=== PATIENT | male | born 1945 | race Caucasian/White ===

== ENCOUNTER 2016-09-14 09:06 | Inpatient (IN) | payer OTHER ==
[2016-09-14 09:57] LABS: MANUAL DIFF NEEDED? NO
[2016-09-14 10:00] LABS: BASO% 0.2 % (0.0-0.8); EOS# 0.13 X1000 (0.0-0.7); EOS% 1.1 % (0.0-10.0); HEMATOCRIT 42.2 % (42.0-52.0); HEMOGLOBIN 14.7 g/dL (14.0-18.0); IMM GRAN# 0.03 X1000 (0.0-0.04); IMM GRAN% 0.2 % (0.0-0.5); LYMPH# 0.86 X1000 (1.2-3.4); MCHC 34.8 g/dL (33-37); MCV 86.1 FL (81-99); MONO# 1.07 X1000 (0.11-0.59); MONO% 8.7 % (1.7-9.3); MPV 10.8 FL (7.4-10.4); NEUT% 82.8 % (42.2-75.2); PLT 235 X1000 (130-400)
[2016-09-14 10:28] LABS: ALBUMIN 3.4 g/dL (3.5-5.0); CALCIUM 9.1 mg/dL (8.8-10.2); POTASSIUM 4.2 mmol/L (3.5-5.1); TOTAL BILIRUBIN 0.53 mg/dL (0.20-1.00)
[2016-09-14] MEDS ORDERED: DUONEB (A & A) INH ONE (10:41)
--- NOTE | 2016-09-14 10:42 | ED EKG INTERP ---
EKG Interpretation - EKG Time of EKG reading by physician:: 09:40 EKG Read and Signed by:: Swapnil Roldan EKG Interpretation (*Must complete 3 of following elements*): Normal Rate: 74 Rhythm: normal sinus rhythm Comments: normal ECG Attestation - Scribe Verification/Attestation Scribe:: Antonieta Manuel Acting as Scribe for:: Swapnil Roldan Scribe documention review:: This chart was documented by a scribe and accurately reflects the service the provider performed and the decisions made by the provider.
--- NOTE | 2016-09-14 10:47 | PROVIDER DOCUMENTATION ---
HPI-General Adult - General Chief Complaint: Post Op Complaint Stated Complaint: post op complaint Time Seen by Provider: 09/14/16 10:22 Allergies/Adverse Reactions: Patient Allergies Allergy/AdvReac Type Severity Reaction Status Date / Time No Known Allergies Allergy Verified 09/14/16 09:30 Home Medications: Home Medication List Medication Instructions Recorded Confirmed Last Taken Type ATORVAstatin [Lipitor] 40 mg PO QHS 09/08/16 09/14/16 1 Day Ago History Amlodipine [Norvasc] 10 mg PO DAILY 09/08/16 09/14/16 1 Day Ago History Aspirin 81 mg PO DAILY 09/08/16 09/14/16 1 Day Ago History Baclofen 10 mg PO DAILY 09/08/16 09/14/16 1 Day Ago History Budesonide/Formoterol Fumarate 10.2 gm IH BID 09/08/16 09/14/16 1 Day Ago History [Symbicort 160-4.5 Mcg Inhaler] Fenofibrate [Lofibra] 160 mg PO DAILY 09/08/16 09/14/16 1 Day Ago History Glimepiride [Amaryl] 1 mg PO QAM 09/08/16 09/14/16 1 Day Ago History Losartan Potassium 100 mg PO DAILY 09/08/16 09/14/16 1 Day Ago History Magnesium Oxide [Magnesium] 500 mg PO DAILY 09/08/16 09/14/16 1 Day Ago History Meloxicam 15 mg PO DAILY 09/08/16 09/14/16 1 Day Ago History Metformin HCl [Glumetza] 1,000 mg PO BID 09/08/16 09/14/16 1 Day Ago History Multivitamin [Men's Multi-Vitamin] 1 each PO DAILY 09/08/16 09/14/16 1 Day Ago History Pregabalin [Lyrica] 50 mg PO BID 09/08/16 09/14/16 1 Day Ago History Tamsulosin [Flomax] 0.4 mg PO BID 09/08/16 09/14/16 1 Day Ago History Hydrocodone/APAP 7.5 mg/325 mg 1 each PO TID PRN #15 tablet 09/10/16 09/14/16 1 Week Ago Rx [[place]-7.5] - History of Present Illness -Gen Adult Nature of Presenting Problems: A 71 y/o M who had recent lithotripsy presented with new onset of confusion and frequent falls, as per had 3 falls and hit his right arm no hitting head and denies LOC, poor historian, family thinks he is more confused and do not recall recent events, on presentation pt is not in acute distress, he has decreased appetite Location of Pain/Injury: reports: upper extremity Pain Radiation: reports: no radiation Quality of Pain: reports: dull Severity: reports: mild Onset/Duration: reports: unsure Timing: reports: still present Context/Activities at Onset: reports: none Modifying Factors: improves with: nothing Associated Symptoms: reports: denies symptoms Similar Symptoms Previously?: No Recently seen or treated by another doctor?: Yes - Diabetes Related Context Context: reports: change in mental status Review of Systems - Adult - REVIEW OF SYSTEMS - ADULT Constitutional: reports: see HPI Eyes: reports: no symptoms reported Ears, Nose, Mouth & Throat: reports: no symptoms reported Cardiovascular: reports: no symptoms reported Respiratory: reports: no symptoms reported Gastrointestinal: reports: no symptoms reported Genitourinary: reports: no symptoms reported Musculoskeletal: reports: no symptoms reported Integumentary: reports: no symptoms reported Neurological: reports: see HPI, loss of balance Psychiatric: reports: no symptoms reported Endocrine: reports: no symptoms reported Hematologic/Lymphatic: reports: no symptoms reported Allergic/Immunologic: reports: no symptoms reported All Other Systems: Reviewed and Negative Past History - Adult - PAST MEDICAL HISTORY-ADULT Review of Records: reports: Old Records Reviewed, Nursing Assessment Review, Medications Reviewed, Social history reviewed & non-contributory. Major Childhood Illnesses: reports: denies history Cardiovascular: reports: HTN Respiratory: reports: denies history Gastrointestinal: reports: denies history Obstetrical/Gynecological: reports: denies history Genitourinary: reports: denies history Musculoskeletal: reports: arthritis Neurological: reports: CVA Endocrine/Immune: reports: Diabetes Other Conditions: reports: denies history - FAMILY HISTORY Family History: reviewed, not pertinent Physical Exam-General - PHYSICAL EXAM-ADULT Initial Vital Signs Reviewed: Yes - CONSTITUTIONAL General Appearance: lethargic, slow to respond - EYES Eyes: PERRL/EOMI, pink conjunctivae - HEAD, EARS, NOSE, MOUTH & THROAT HENMT: normocephalic/atraumatic, moist mucous membranes - NECK Neck: non-tender, full range of motion - RESPIRATORY Respiratory: chest non-tender, lungs clear, wheezing (mild scattered) - CARDIOVASCULAR Cardiovascular: normal peripheral pulses, regular rate, rhythm, no edema, no gallop, no JVD, no murmur - GASTROINTESTINAL (ABDOMEN) Abdominal Exam: normal bowel sounds, non tender, soft - LYMPHATIC Lymphatic: no adenopathy - MUSCULOSKELETAL Back Exam: normal inspection, no CVA tenderness, no vertebral tenderness Extremity: normal range of motion, non-tender, swelling (mild pitting edema 1+) - SKIN Integumentary: normal color - NEUROLOGIC Neurologic: other (POOR COPERATION unable to ascess completely, had left sided droop which was chronic as per family) - PSYCHIATRIC Psych/Mental Status: other (confusion) Progress - PLAN OF CARE/RESULTS Progress/Plan/Lab Results: Laboratory Tests 09/14/16 09/14/16 09/14/16 09:41 09:41 09:41 WBC 12.30 H RBC 4.90 Hgb 14.7 Hct 42.2 MCV 86.1 MCH 30.0 MCHC 34.8 RDW Std Deviation 15.6 H Plt Count 235 MPV 10.8 H Immature Gran % (Auto) 0.2 Neut % (Auto) 82.8 H Lymph % (Auto) 7.0 L [place] % (Auto) 8.7 Eos % (Auto) 1.1 Baso % (Auto) 0.2 Immature Gran # (Auto) 0.03 Neut # (Auto) 10.19 H Lymph # (Auto) 0.86 L [place] # (Auto) 1.07 H Eos # (Auto) 0.13 Baso # (Auto) 0.02 Sodium 126 L Potassium 4.2 Chloride 86 L Carbon Dioxide 21 L Anion Gap 19 BUN 79 H Creatinine 5.0 H Estimated GFR/1.73 m2 12 BUN/Creatinine Ratio 16 Glucose 62 L Calculated Osmolality 275 Calcium 9.1 Total Bilirubin 0.53 AST 17 ALT 11 Alkaline Phosphatase 60 Vwa-O-Rrshtvruhzr Pept 171 Total Protein 7.0 Albumin 3.4 L Globulin 3.6 Albumin/Globulin Ratio 0.9 Urine Source Urine Color Urine Turbidity Urine pH Ur Specific [place] Urine Protein Ur Glucose (Stick) Ur Ketones (Stick) Urine Blood Urine Nitrite Urine Bilirubin Urobilinogen Dipstick Urine Leukocytes Urine WBC (Auto) Urine RBC (Auto) U Epithel Cells (Auto) Urine Bacteria (Auto) 09/14/16 11:35 WBC RBC Hgb Hct MCV MCH MCHC RDW Std Deviation Plt Count MPV Immature Gran % (Auto) Neut % (Auto) Lymph % (Auto) [place] % (Auto) Eos % (Auto) Baso % (Auto) Immature Gran # (Auto) Neut # (Auto) Lymph # (Auto) [place] # (Auto) Eos # (Auto) Baso # (Auto) Sodium Potassium Chloride Carbon Dioxide Anion Gap BUN Creatinine Estimated GFR/1.73 m2 BUN/Creatinine Ratio Glucose Calculated Osmolality Calcium Total Bilirubin AST ALT Alkaline Phosphatase Kci-B-[place] Pept Total Protein Albumin Globulin Albumin/Globulin Ratio Urine Source CATH Urine Color YELLOW Urine Turbidity CLEAR Urine pH 5.0 Ur Specific [place] 1.010 Urine Protein 30 A Ur Glucose (Stick) NEGATIVE Ur Ketones (Stick) NEGATIVE Urine Blood MODERATE A Urine Nitrite NEGATIVE Urine Bilirubin NEGATIVE Urobilinogen Dipstick NORMAL Urine Leukocytes NEGATIVE Urine WBC (Auto) <10 Urine RBC (Auto) <10 U Epithel Cells (Auto) <10 Urine Bacteria (Auto) NEGATIVE Orders Category Date Time Status Admit - [facility] Routine AdmDCTranf 09/14/16 11:53 Ordered Activity - Strict Bedrest ORDERED Care 09/14/16 11:53 Active Call Admitting on Arrival AT ADMISSION Care 09/14/16 11:54 Active Neurological Check q2h Care 09/14/16 11:53 Active Vital Signs Order ARRIVAL TO ROOM Care 09/14/16 11:53 Active CHEST-1 VIEW [RAD] Stat Exams 09/14/16 10:39 Taken HAND COMPLETE RIGHT [RAD] Stat Exams 09/14/16 10:44 Taken HEAD W/O CONTRAST [CT] Stat Exams 09/14/16 10:39 Taken CBC WITH DIFF [HEME] Stat Lab 09/14/16 09:41 Completed CMP [COMPREHENSIVE METABOLIC PANEL] [CHEM] Stat Lab 09/14/16 09:41 Completed PRO B-NATRIURETIC PEPTIDE Stat Lab 09/14/16 09:41 Completed URINALYSIS [URINALYSIS] Stat Lab 09/14/16 11:35 Completed 0.9% Sodium Chloride Inj [Ns] 1,000 ml Med 09/14/16 11:38 Active IV 999 mls/hr Albuterol 2.5MG/Ipratrop 0.5MG [Duoneb (A & A)] Med 09/14/16 10:41 Discontinued 3 ml INH NOW ONE Aerosol Treatments Routine Oth 09/14/16 10:41 Completed Aerosol Treatments Stat Oth 09/14/16 10:41 Completed Oxygen Device Routine Oth 09/14/16 11:54 Active Telemetry [OM.EQ] Routine Oth 09/14/16 11:53 Active EKG [EKG] Stat Ther 09/14/16 09:35 Draft Vital Signs Temp Pulse Resp BP Pulse Ox 09/14/16 11:51 98 F 78 22 152/59 92 L 09/14/16 10:59 87 16 97 09/14/16 10:01 76 15 92 L 09/14/16 09:07 97.6 F 74 18 139/98 96 No Known Allergies Allergy (Verified 09/14/16 09:30) ATORVAstatin [Lipitor] 40 mg PO QHS 09/08/16 Amlodipine [Norvasc] 10 mg PO DAILY 09/08/16 Aspirin 81 mg PO DAILY 09/08/16 Baclofen 10 mg PO DAILY 09/08/16 Budesonide/Formoterol Fumarate [Symbicort 160-4.5 Mcg Inhaler] 10.2 gm IH BID Fenofibrate [Lofibra] 160 mg PO DAILY 09/08/16 Glimepiride [Amaryl] 1 mg PO QAM 09/08/16 Losartan Potassium 100 mg PO DAILY 09/08/16 Magnesium Oxide [Magnesium] 500 mg PO DAILY 09/08/16 Meloxicam 15 mg PO DAILY 09/08/16 Metformin HCl [Glumetza] 1,000 mg PO BID 09/08/16 Multivitamin [Men's Multi-Vitamin] 1 each PO DAILY 09/08/16 Pregabalin [Lyrica] 50 mg PO BID 09/08/16 Tamsulosin [Flomax] 0.4 mg PO BID 09/08/16 Hydrocodone/APAP 7.5 mg/325 mg [[place]-7.5] 1 each PO TID PRN #15 tablet I&O 09/13/16 09/14/16 09/15/16 07:59 07:59 07:59 Output Total 30 Balance -30 Laboratory 09/14/16 09/14/16 09/14/16 11:35 09:41 09:41 WBC RBC Hgb Hct MCV MCH MCHC RDW Std Deviation Plt Count MPV Immature Gran % (Auto) Neut % (Auto) Lymph % (Auto) [place] % (Auto) Eos % (Auto) Baso % (Auto) Immature Gran # (Auto) Neut # (Auto) Lymph # (Auto) [place] # (Auto) Eos # (Auto) Baso # (Auto) Sodium 126 L Potassium 4.2 Chloride 86 L Carbon Dioxide 21 L Anion Gap 19 BUN 79 H Creatinine 5.0 H Estimated GFR/1.73 m2 12 BUN/Creatinine Ratio 16 Glucose 62 L Calculated Osmolality 275 Calcium 9.1 Total Bilirubin 0.53 AST 17 ALT 11 Alkaline Phosphatase 60 Lnx-G-Kqdkiqgkrel Pept 171 Total Protein 7.0 Albumin 3.4 L Globulin 3.6 Albumin/Globulin Ratio 0.9 Urine Source CATH Urine Color YELLOW Urine Turbidity CLEAR Urine pH 5.0 Ur Specific [place] 1.010 Urine Protein 30 A Ur Glucose (Stick) NEGATIVE Ur Ketones (Stick) NEGATIVE Urine Blood MODERATE A Urine Nitrite NEGATIVE Urine Bilirubin NEGATIVE Urobilinogen Dipstick NORMAL Urine Leukocytes NEGATIVE Urine WBC (Auto) <10 Urine RBC (Auto) <10 U Epithel Cells (Auto) <10 Urine Bacteria (Auto) NEGATIVE 09/14/16 09:41 WBC 12.30 H RBC 4.90 Hgb 14.7 Hct 42.2 MCV 86.1 MCH 30.0 MCHC 34.8 RDW Std Deviation 15.6 H Plt Count 235 MPV 10.8 H Immature Gran % (Auto) 0.2 Neut % (Auto) 82.8 H Lymph % (Auto) 7.0 L [place] % (Auto) 8.7 Eos % (Auto) 1.1 Baso % (Auto) 0.2 Immature Gran # (Auto) 0.03 Neut # (Auto) 10.19 H Lymph # (Auto) 0.86 L [place] # (Auto) 1.07 H Eos # (Auto) 0.13 Baso # (Auto) 0.02 Sodium Potassium Chloride Carbon Dioxide Anion Gap BUN Creatinine Estimated GFR/1.73 m2 BUN/Creatinine Ratio Glucose Calculated Osmolality Calcium Total Bilirubin AST ALT Alkaline Phosphatase Rrd-D-[place] Pept Total Protein Albumin Globulin Albumin/Globulin Ratio Urine Source Urine Color Urine Turbidity Urine pH Ur Specific [place] Urine Protein Ur Glucose (Stick) Ur Ketones (Stick) Urine Blood Urine Nitrite Urine Bilirubin Urobilinogen Dipstick Urine Leukocytes Urine WBC (Auto) Urine RBC (Auto) U Epithel Cells (Auto) Urine Bacteria (Auto) - XRAY 1 XRAY Study: Chest Impression: Normal, See EMR Report - CT/MRI 1 CT Study: Head Impression: See EMR Report (acute infarct of basal ganglia around temporal region) - CONSULTS/PCP/HOSPITALIST Notification #1 *Consult/PCP/Hospitalist*: PCP Dr Rey Time Discussed: 12:00 Consult Disposition: Admit Departure - Departure Time of Disposition Order: 11:56 DIAGNOSIS: Renal failure, Hyponatremia Stroke Qualifiers: CVA mechanism: unspecified Qualified Code(s): I63.9 - Cerebral infarction, unspecified Altered mental status, unspecified Qualifiers: Altered mental status type: disorientation Qualified Code(s): R41.0 - Disorientation, unspecified Disposition: ADMITTED INPATIENT 09 Certified Medical Emergency: Emergent Condition: Fair - Critical Care Note Comments: A 71 y/o M who presented with confusion and frequent falls, onset of symptoms since 2-[address] found to have acute infarct no hemmorhage along with incresed creatinine and hyponatremia, given bolus of IV fluids and discussed with Dr Rey PCP and admit to hospital for further evalaution
--- NOTE | 2016-09-14 10:54 | EKG Report ---
Test Performed on : 09/14/2016 09:40:24 AM Test Reason : FALL Blood Pressure : / mmHG Vent. Rate : 074 BPM Atrial Rate : 074 BPM P-R Int : 186 ms QRS Dur : 098 ms QT Int : 386 ms P-R-T Axes : 068 015 055 degrees QTc Int : 428 ms Normal sinus rhythm. Normal ECG When compared with ECG of 08-SEP-2016 11:36, premature ventricular complexes. are no longer present Unconfirmed Result
[2016-09-14] MEDS ORDERED: NS 1,000 ML IV ONE (11:38)
[2016-09-14 11:46] LABS: URINE MICRO REVIEW NEEDED? NO; URINE SOURCE CATH
[2016-09-14 11:51] LABS: BILIRUBIN URINE NEGATIVE (NEGATIVE); BLOOD URINE MODERATE (NEGATIVE); COLOR YELLOW; GLUCOSE URINE NEGATIVE (NEGATIVE); LEUKOCYTES URINE NEGATIVE (NEGATIVE); NITRITE URINE NEGATIVE (NEGATIVE); PROTEIN URINE 30 mg/dL (NEGATIVE); TURBIDITY URINE CLEAR (CLEAR); UROBILINOGEN URINE NORMAL (NORMAL)
[2016-09-14 11:53] LABS: UR EPITHELIAL CELLS <10 /HPF (<10); URINE BACTERIA NEGATIVE /HPF; URINE RBC <10 /HPF (<10); URINE WBC <10 /HPF (<10)
--- NOTE | 2016-09-14 11:54 | Diag Imaging Result Document ---
PROCEDURE NAME: CHEST-1 VIEW - 09/14/2016 AP CHEST: FINDINGS: The lungs are well expanded. The heart is not enlarged considering the AP exam. The vessels are not distended. No pneumonia. No pleural effusions identified. IMPRESSION: Negative chest.
--- NOTE | 2016-09-14 12:01 | Diag Imaging Result Document ---
PROCEDURE NAME: HEAD W/O CONTRAST - 09/14/2016 CT HEAD WITHOUT CONTRAST: TECHNIQUE: A dose reduction protocol was used. COMPARISON: No comparison examination. FINDINGS: There is an approximately 4 x 4 cm low density area which involves part of the basal ganglia region and the nearby temporal lobe in the vicinity of the sylvian cortex on the left. There is some associated mass effect on the left lateral ventricle and there is mild midline shift to the right of 4-5 mm. This may represent an acute infarct. The possibility that his represents edema associated with a mass lesion cannot be entirely excluded, however. There are chronic appearing microvascular ischemic changes elsewhere and there is a chronic appearing lacunar infarct at the right internal capsule. There is no evidence of hemorrhage. There is no hydrocephalus. There is no skull fracture. There is metallic material noted at the anterior left orbit which may be postsurgical or may relate to other metallic foreign body. IMPRESSION: 1. Approximately 4 cm low density area which extends from the basal ganglia region to the nearby temporal lobe on the left. This likely represents an acute infarct. There is an associated mild mass effect on the left lateral ventricle with mild midline shift to the right. The possibility of a mass lesion in this location cannot be entirely excluded. 2. No hemorrhage. 3. Metallic object at the anterior left orbit which is likely postsurgical, although other metallic foreign body is not excluded. Verbal results were provided to Dr. Palmer at 11:37 a.m. on 09/14/2016.
--- NOTE | 2016-09-14 15:25 | Diag Imaging Result Document ---
PROCEDURE NAME: RENAL STONE SEARCH - 09/14/2016 CT RENAL STONE SEARCH WITHOUT CONTRAST: TECHNIQUE: A dose reduction protocol was used. COMPARISON: Comparison is made with the without contrast CT abdomen of 2015. FINDINGS: There is lviv-kc-gbzrhvzp hydronephrosis on the right. There is mild hydronephrosis on the left. There is an approximately 15 x 11 mm stone at the right ureterovesical junction. There is possible a second 7 mm stone adjacent to the larger stone at the right UVJ. There are nonobstructing stones at the lower right kidney. There is a large nonobstructing stone at the lower left kidney. There is no obstructing left renal stone identified. The urinary bladder is substantially distended. There are apparent cysts at the lower right kidney similar to the previous exam. There is a possible complicated cyst at the upper left kidney similar to the previous exam. The prostate is somewhat prominent and there are prostatic calcifications noted. There is low density enlargement of the left adrenal gland which measures approximately 3 cm and appears stable, likely representing adrenal adenoma. There are atherosclerotic calcifications noted. There are lumbar spine degenerative changes also noted. There is no evidence of bowel obstruction. There is no evidence of free air. IMPRESSION: 1. Cvhq-sw-vumngygx hydronephrosis on the right. Mild hydronephrosis on the left. Distended urinary bladder. 2. 15 x 11 mm stone at the right ureterovesical junction. There is possibly a second 7 mm stone adjacent to the larger stone at the right UVJ. Nonobstructing stones in bilateral kidneys. Verbal results provided to Dr. Rey at 2:53 p.m. on 09/14/2016. [facility]
[2016-09-14] MEDS ORDERED: CATAPRES PO PRN (15:55)
--- NOTE | 2016-09-14 16:27 | Diag Imaging Result Document ---
PROCEDURE NAME: HAND COMPLETE RIGHT - 09/14/2016 PLAIN RADIOGRAPH OF THE RIGHT HAND 3 VIEWS: COMPARISON: None available. 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 There is extensive degenerative arthropathy involving the distal IP joint of the 3rd finger and milder arthropathy at the distal IP joint of the 2nd finger. There is no discrete fracture, dislocation, or intrinsic osseous lesion otherwise. IMPRESSION: No definite acute osseous abnormality.
--- NOTE | 2016-09-14 17:12 | CONSULTATION ---
DATE OF CONSULTATION: 09/14/2016 CONSULTING PHYSICIAN: Dr. Mejia Rey. REASON FOR CONSULTATION: Acute kidney injury, right hydroureteronephrosis, right distal ureteral stone with obstruction. HISTORY OF PRESENT ILLNESS: This is a 71-year-old male, known to me secondary to a history of BPH, elevated PSA, and urolithiasis. He had a CAT scan in December of 2015 which showed bilateral renal stones. He developed left flank pain with KUB revealing large left renal stone. He underwent left extracorporeal shockwave lithotripsy on 09/10/2016. He was discharged later that day. He reports having mild postoperative discomfort and noted passing the fragments. He then developed a progressively harder time urinating, voiding " thimble amount" at that time. He also reports intermittent right-sided flank pain radiating to the lower abdomen. He denied gross hematuria except for the 1st 2 days after lithotripsy. He was admitted today with confusion and frequent falls. He underwent CT scan of the head which revealed a possible infarct at the level of the basal ganglia. He also underwent CT abdomen and pelvis renal stone search which revealed moderate hydronephrosis on the right with 15 x 11 mm stone at the right ureterovesical junction. He had very mild left hydroureteronephrosis as well as left lower pole renal stone. He also had several cysts bilaterally. Of note, there was significantly distended urinary bladder. Patient had a Sinclair catheter placed and reports feeling better already. He denies fevers or chills. PAST MEDICAL HISTORY: 1. History of CVA. 2. Obstructive sleep apnea. 3. Urolithiasis. 4. Kidney cysts. 5. Elevated PSA. 6. BPH. 7. Arthritis. PAST SURGICAL HISTORY: Left extracorporeal shockwave lithotripsy as above. MEDICATIONS: Amlodipine, calcium, aspirin, fenofibrate, losartan, metformin, oxycodone, Flomax. ALLERGIES: No known drug allergies. SOCIAL HISTORY: Smoker. Denies alcohol or drug use. FAMILY HISTORY: No malignancies. REVIEW OF SYSTEMS: Reviewed and 12 systems negative except as mentioned in HPI. PHYSICAL EXAMINATION: Vital signs: T 99.8 degrees, P 82, BP 142/58. General: No acute distress. Pleasant male. HEENT: Normocephalic, atraumatic. Cardiovascular: Regular rhythm. Pulmonary: Bilateral breath sounds. Abdomen: Protuberant. Nontender to palpation. : Normal phallus. Normal meatus. Uncircumcised. Sinclair catheter in place, draining straw-colored urine. Lymphatic: No groin lymphadenopathy. Dermatologic: No obvious skin rashes. Neurologic: Alert and oriented x3 on my exam. Psychiatric: Appropriate mood and affect. PERTINENT LABS: White cell count of 12,000, hematocrit 42. Creatinine of 5 from a creatinine of 1 just a week ago. His urinalysis is positive for blood, negative for bacteria , nitrite, or leukocytes. PERTINENT IMAGES: CT abdomen and pelvis stone search on 09/14/2016 per HPI. ASSESSMENT: This is a 71-year-old male with history of benign prostatic hypertrophy status post left extracorporeal shockwave lithotripsy, who presented with urinary retention and likely altered mental status due to that, as well as a very large right ureterovesical junction stone. I have explained to the patient it would be very unlikely to have a 15 mm stone move all the way to the distal ureter but nevertheless, that is his case. We discussed that he would benefit from right ureteroscopy with laser lithotripsy, stone basket extraction, and ureteral stent placement. We discussed the risks including, but not limited to, bleeding, infection, injury to the bladder, injury to the kidney, injury to the ureter, inability to remove the stone, and need for additional interventions. He voiced understanding and wants to proceed. PLAN: 1. To OR tomorrow for right ureteroscopy, laser lithotripsy, stone basket extraction, placement of right ureteral stent. 2. Keep Sinclair catheter in for now. 3. Thank you for the consultation. [facility]
[2016-09-14] MEDS: NS 1,000 ML IV SCH (17:59)
[2016-09-14] MEDS: SYMBICORT 160/4.5 MICROGM INHALER INH SCH (20:00)
--- NOTE | 2016-09-14 22:11 | HISTORY AND PHYSICAL ---
CHIEF COMPLAINT: Altered mental status. HISTORY OF PRESENT ILLNESS: Mr. Kathleen is a 71-year-old, gentleman who was brought into the emergency room after he was reportedly having altered mental status and frequent falls. He had a lithotripsy [address] Blackmon[address] The patient is a poor historian and cannot give me any history. PAST MEDICAL HISTORY: 1. Type 2 diabetes mellitus. 2. Hypertension. 3. Dyslipidemia. 4. History of CVA. 5. Anxiety disorder. 6. Depression. 7. 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 8. History of pancreatitis in the past. PAST SURGICAL HISTORY: Left cheek skin cancer resection. SOCIAL HISTORY: Patient smoked 2 packs of cigarettes per day. He has been smoking since 1964. He does not drink alcohol on a regular basis and does not use any recreational drugs. FAMILY HISTORY: No significant family history reported. ALLERGIES: No known drug allergies reported. CURRENT HOME MEDICATIONS: 1. Amlodipine 10 mg orally once daily. 2. Aspirin 81 mg orally once daily. 3. Atorvastatin 40 mg orally once daily at bedtime. 4. Fenofibrate 160 mg orally once daily. 5. Multivitamin orally once daily. 6. Fish oil 1000 mg orally 2 capsules twice daily. 7. Glimepiride 1 mg orally once daily in the morning. 8. Metformin 1000 mg orally twice daily. 9. Losartan 100 mg orally once daily. 10. Meloxicam 15 mg orally once daily. 11. Oxycodone/acetaminophen 10 mg/325 mg orally 1-2 tablets every 6 hours as needed for pain. 12. Lyrica 50 mg orally twice daily. 13. Symbicort 160/4.5, 2 puffs twice daily. 14. Tamsulosin 0.4 mg orally twice daily. REVIEW OF SYSTEMS: A full review of systems could not be obtained since patient is not giving me a good history because of altered mental status. PHYSICAL EXAMINATION: VITAL SIGNS: Temperature 98.8 degrees, pulse 82 per minute, respiratory rate 16 per minute, blood pressure 142/58, pulse ox 95% on 2 L of oxygen via nasal cannula. GENERAL: Patient is alert and oriented x3 although he does appear to be somewhat drowsy. He does not appear to be in any acute distress otherwise. HEENT: No acute findings noted. NECK: Supple without any thyromegaly. LYMPHATICS: No lymphadenopathy noted in the neck or axillary areas. RESPIRATORY SYSTEM: Normal. Respiratory effort noted. Bilateral lung air entry is good without any rales or rhonchi. CARDIOVASCULAR SYSTEM: First and second heart sounds are audible without any murmurs or gallops. There is no pedal edema. GASTROINTESTINAL SYSTEM: Abdomen does not appear to be distended. It is soft and nontender on palpation. Normal bowel sounds are present. MUSCULOSKELETAL SYSTEM: Range of motion is somewhat limited in most of the joints secondary to osteoarthritis. Congenital deformities of hands and feet are also noted. PSYCHIATRIC: Normal affect noted. Patient does appear to be somewhat forgetful and drowsy. NEUROLOGIC: No focal deficits at present otherwise. SKIN: Skin is without any rash. GENITOURINARY: Deferred. DIAGNOSTIC DATA: CBC shows WBC count of 12.30. Rest of the CBC is nondiagnostic. Chemistry showed sodium levels of 126, BUN 79, creatinine 5.0. Rest of the chemistry is nondiagnostic. Urinalysis shows moderate blood. CT scan of the abdomen and pelvis without contrast showed right-sided mild to moderate hydronephrosis, left-sided mild hydronephrosis, severe bladder distention and right UVJ 15-11 mm calculus along with bilateral nonobstructing calculi. CT scan of the head was obtained at the emergency room that showed 4 cm low- density area extending from basal ganglia to the nearby temporal lobe on the left side. There is an associated mild mass effect on the left lateral ventricle with midline shift to the right. No hemorrhage was noted however. Chest x-ray did not show any acute pulmonary disease. IMPRESSION: 1. Altered mental status that could be multifactorial and could be secondary to uremia along with possible acute stroke and also hyponatremia. 2. Acute kidney injury with significantly elevated creatinine levels of 5.0 with normal baseline creatinine levels. This is secondary to bladder outlet obstruction along with right ureterovesical junction calculus. 3. Multiple comorbid conditions including hypertension and diabetes. PLAN: I am going to discontinue or hold metformin, losartan and meloxicam at this time. We will continue with the rest of his routine home medications and give him lispro insulin as per sliding scale for diabetes control. I am also going to give him IV fluids normal saline at 125 mL/h and place a Sinclair catheter. Her creatinine levels are expected to improve overnight and a Urology consultation with Dr. Ananyev has been requested with whom I discussed this case in detail over the phone. I am also going to request a Neurology consultation with Dr. Montero for further evaluation and his abnormal brain CT which could be likely secondary to acute CVA. I am going to obtain a basic metabolic panel to re-evaluate his sodium levels along with BUN/ creatinine tomorrow morning. Further recommendations will be given as per hospital course. MTDD
[2016-09-14] MEDS: HUMALOG SUBQ SCH (22:44)
[2016-09-14] MEDS: LIPITOR PO SCH (22:44)
[2016-09-14] MEDS: FLOMAX PO SCH (22:44)
[2016-09-15] MEDS: NS 1,000 ML IV SCH ×4 (03:46→23:01)
[2016-09-15 07:17] LABS: CALCIUM 8.9 mg/dL (8.8-10.2); POTASSIUM 4.3 mmol/L (3.5-5.1)
[2016-09-15] MEDS: SYMBICORT 160/4.5 MICROGM INHALER INH SCH ×2 (08:05→21:35)
[2016-09-15] MEDS: HUMALOG SUBQ SCH ×3 (11:46→20:52)
[2016-09-15] MEDS: FLOMAX PO SCH ×2 (11:47→20:53)
[2016-09-15] MEDS ORDERED: CLAVE SECONDARY SET 11953 ONE (11:53)
[2016-09-15] MEDS ORDERED: KEFZOL 2 GM/D5W 50 ML ONE (11:53)
[2016-09-15] MEDS ORDERED: DIPRIVAN 1% ONE (13:12)
[2016-09-15] MEDS ORDERED: XYLOCAINE-MPF 2% ONE (13:22)
[2016-09-15] MEDS ORDERED: LR 1,000 ML ONE (13:22)
[2016-09-15] MEDS ORDERED: QUELICIN (DOSE) ONE (13:22)
[2016-09-15] MEDS ORDERED: ANESTHESIA PB SET 88 IN 5742 ONE (13:22)
[2016-09-15] MEDS ORDERED: NORCO-7.5 PO PRN (13:34)
[2016-09-15] MEDS ORDERED: MORPHINE IV PRN (13:36)
[2016-09-15] MEDS ORDERED: ATIVAN IV PRN (13:52)
[2016-09-15] MEDS ORDERED: ZOFRAN IV PRN (13:53)
--- NOTE | 2016-09-15 14:12 | Diag Imaging Result Document ---
PROCEDURE NAME: FLUROSCOPY CYSTO - 09/15/2016 RETROGRADE PYELOGRAM, 4 IMAGES: FINDINGS: The last image shows a guidewire on the right. There are multiple apparent stones over the lower pole of the right kidney, and there may be multiple stones on the left side as well. No contrast was administered. IMPRESSION: Fluoroscopic images as described.
[2016-09-15] MEDS: NORVASC PO SCH (15:03)
[2016-09-15] MEDS: LOFIBRA PO SCH (15:03)
[2016-09-15] MEDS: ASPIRIN PO SCH (15:03)
[2016-09-15] MEDS ORDERED: HALDOL IV ONE (15:04)
[2016-09-15] MEDS: THERA M PLUS PO SCH (15:04)
--- NOTE | 2016-09-15 16:19 | CONSULTATION ---
DATE OF CONSULTATION: 09/15/2016 ROOM: 371-B. HISTORY OF PRESENT ILLNESS: Mr. Kathleen is 71 years old. History from the family is that he has been gradually more forgetful for the last 6 months or so. Family has also noticed unsteady gait, short steps, stooped posture, shuffling. He was taking oxycodone, 1 or 2 doses daily regularly for back pain. He had a urologic procedure 5 days ago and did well. He seemed to be at baseline later that day and early the following day. He declined pain medicines. Later in the day four days ago, he seemed confused, "talking out of his head," unable to walk without falling. Family saw him fall. He simply collapsed. There was not definite focal feature. He was not able to get up without assistance. There was never unconsciousness or altered awareness associated with falls. Sometimes, in recent days, he would seem to be nearly at baseline with his alertness, attention, orientation and gait and at other times, he would seem unable to carry on conversation and unable to walk. This went on for a day or so and then he came to the hospital. He seems to be a little bit better today, but has not walked today. There is history of stroke occurring about 18 years ago causing one-sided weakness. Family believes this was left-sided weakness, mostly left leg weakness to the point that he could not walk. He gradually recovered and eventually was walking with minimal limp. There is no history of recent head injury. He does not use ethanol. He has never had seizure or other neurologic event. Workup here includes lab showing WBC count 12,300. Sodium was initially 126, corrected to 144. Initial blood sugar was 64, later 94. Family believes he was taking his medicines for blood sugar control, but not eating and blood sugar may have been lower at home. Initial BUN and creatinine were 79 and 5, improved today to 555 and 2.3. Review of computer record shows laboratory, BUN 14 and creatinine 1 then. He has past history of hypertension, dyslipidemia, diabetes mellitus, and cigarette smoking. PHYSICAL EXAMINATION: Vital sign: Chart here shows he is afebrile. Systolic blood pressures have ranged 110 to 150s. Neurologic: Mr. Kathleen is awake, alert, attentive and cheerful. He is not oriented. He eventually guessed the day of the week correctly as Wednesday, but did not answer any other orienting questions correctly. Speech is not significantly dysarthric. Language function is intact on brief bedside testing. Remote memory is fair. Recent memory is poor. I did not test his cognitive function further. He has congenital deformities of the left side of the face and all limbs distally. Family reports facial appearance is baseline with no new drooping or asymmetry. He has full visual field tested by confrontational finger counting in the right eye. He reports equal pinprick appreciation on the left and right limbs. He demonstrates good power in all limbs. He did well on right index finger to nose testing and left 5th finger to nose testing. I did not test his gait. IMPRESSION: 1. Global encephalopathy with confusion, apractic gait. This has been progressing in recent months and was abruptly worse over the weekend associated with metabolic changes as documented. There may be some concern for opiate medication effect, but clearly no history that he took too much of that and history does not sound typical for opiate withdrawal syndrome. There was never altered consciousness to suggest seizure. Clinical exam is difficult to interpret in light of his old deformities, but I do not see new focal neurologic finding to suggest recent stroke. 2. Reported history of old stroke, possibly causing left hemiparesis. I do not see definite residual. 3. Metabolic problems as above. These are being corrected. RECOMMENDATIONS: I do not have any urgent suggestion. We might consider elective brain MRI later, but that is not urgent. Depending on his clinical course, we might consider adding cholinesterase inhibitor. Thanks for asking me to see Mr. Kathleen. [facility]
[2016-09-15] MEDS: LIPITOR PO SCH (20:54)
[2016-09-16] MEDS: NS 1,000 ML IV SCH ×3 (05:40→16:38)
[2016-09-16] MEDS: HUMALOG SUBQ SCH ×4 (06:27→21:51)
[2016-09-16 06:47] LABS: MANUAL DIFF NEEDED? NO
[2016-09-16 06:59] LABS: BASO% 0.2 % (0.0-0.8); EOS# 0.05 X1000 (0.0-0.7); EOS% 0.6 % (0.0-10.0); HEMATOCRIT 39.4 % (42.0-52.0); HEMOGLOBIN 12.9 g/dL (14.0-18.0); IMM GRAN# 0.03 X1000 (0.0-0.04); IMM GRAN% 0.3 % (0.0-0.5); LYMPH# 0.68 X1000 (1.2-3.4); LYMPH% 7.7 % (20.5-51.1); MCH 30.1 PG (27-31); MCHC 32.7 g/dL (33-37); MCV 91.8 FL (81-99); MONO# 0.63 X1000 (0.11-0.59); MONO% 7.2 % (1.7-9.3); MPV 11.1 FL (7.4-10.4); PLT 252 X1000 (130-400); RBC 4.29 XMIL (4.7-6.1)
[2016-09-16 07:22] LABS: CALCIUM 8.8 mg/dL (8.8-10.2); POTASSIUM 4.3 mmol/L (3.5-5.1)
[2016-09-16] MEDS: SYMBICORT 160/4.5 MICROGM INHALER INH SCH ×2 (08:45→21:10)
[2016-09-16] MEDS: THERA M PLUS PO SCH (09:09)
[2016-09-16] MEDS: LOFIBRA PO SCH (09:09)
[2016-09-16] MEDS: FLOMAX PO SCH ×2 (09:10→20:30)
[2016-09-16] MEDS: ASPIRIN PO SCH (09:10)
[2016-09-16] MEDS: NORVASC PO SCH (09:10)
--- NOTE | 2016-09-16 15:05 | PROGRESS NOTE ---
DATE: 09/16/2016 SUBJECTIVE: Mr. Kathleen is resting now. Family reports he has been much, much improved cognitively during the day today, compared to yesterday and the day before. There was not any new problem from a neurologic standpoint. ASSESSMENT/PLAN: I do not have any new thoughts or new suggestions today. Thanks for asking me to see Mr. Kathleen.
[2016-09-16] MEDS: LIPITOR PO SCH (20:30)
[2016-09-17] MEDS: NS 1,000 ML IV SCH ×2 (03:51→05:26)
[2016-09-17] MEDS: HUMALOG SUBQ SCH ×2 (06:37→11:14)
[2016-09-17 07:25] LABS: AGAP 10; BUN 19 mg/dL (8-22); CALCIUM 8.7 mg/dL (8.8-10.2); CHLORIDE 106 mmol/L (98-107); COSMO 286; POTASSIUM 3.8 mmol/L (3.5-5.1); SODIUM 141 mmol/L (136-145); TCO2 25 mmol/L (25-35)
[2016-09-17 07:37] VITALS: BP 171/60
[2016-09-17] MEDS: SYMBICORT 160/4.5 MICROGM INHALER INH SCH (08:05)
--- NOTE | 2016-09-17 08:16 | PROGRESS NOTE ---
DATE: 09/17/2016 SUBJECTIVE: Mr. Kathleen had a good night overnight. He denies significant pain. His urine is clear via Sinclair catheter. OBJECTIVE: Vital Signs: T 97.5, P 50, BP 156/52. He has recorded urine output of 2200 mL. General: No acute distress. Abdomen: Nontender. Nondistended. : Sinclair in place, draining straw-colored urine. PERTINENT LABS: His white cell count is 9000, hematocrit 39, creatinine 0.9. ASSESSMENT AND PLAN: A 71-year-old male who presented with acute kidney injury. Creatinine of 5 and presumed 15 mm distal ureteral stone. It was actually 2 stones that were in the diverticulum in the bladder, just adjacent to the ureteral orifice. That likely caused obstruction. He underwent cystolitholapaxy successfully. He did have significant bilobar hypertrophy and I have explained to the patient that he may benefit from transurethral resection of the prostate in the future. For now, we agreed to try Flomax twice a day. PLAN: 1. Discontinue Sinclair catheter today. I instructed nursing staff to notify me with postvoid residual after the patient voids. 2. Home with prescriptions for Flomax 0.4 mg twice a day. 3. I will see him in 4 weeks in office.
[2016-09-17] MEDS: LOFIBRA PO SCH (09:43)
[2016-09-17] MEDS: FLOMAX PO SCH (09:43)
[2016-09-17] MEDS: NORVASC PO SCH (09:44)
[2016-09-17] MEDS: ASPIRIN PO SCH (09:44)
[2016-09-17] MEDS: THERA M PLUS PO SCH (09:44)
--- NOTE | 2016-09-17 11:40 | PROGRESS NOTE ---
DATE: 09/17/2016 SUBJECTIVE: Mr. Kathleen is awake, alert, attentive, bright, cheerful and appropriate. He was sitting up on the side of the bed. He has not had any new mental status problems. I reviewed earlier discussion with patient and family at the bedside regarding possibility that cholinesterase inhibitor could be considered in light of his baseline cognitive impairment and apractic gait. No urgent suggestions. Thanks for asking me to see Mr. Kathleen.
--- NOTE | 2016-09-17 15:56 | DISCHARGE SUMMARY ---
ADMISSION DATE: 09/14/2016 DISCHARGE DATE: 09/17/2016 DISCHARGE DIAGNOSES: 1. Altered mental status secondary to uremia and hyponatremia. 2. Acute kidney injury secondary to right ureterovesical junction calculus and bladder outlet obstruction. 3. History of previous stroke but no acute cerebrovascular event. 4. Type 2 diabetes mellitus. 5. Hypertension. HOSPITAL COURSE: Mr. Kathleen is a 71-year-old, gentleman who was admitted to the hospital after he was found to have altered mental status and having frequent falls. He had lithotripsy done by Dr. Blackmon 4 days prior to this event and had that lithotripsy done on his left side but he was found to have a right ureterovesical junction calculus on his right side this time. Consultation with Dr. Blackmon was obtained who went ahead and did a cystoscopy along with laser lithotripsy and Dormia basket stone extraction. He also had right ureteral stent placement. Patient's condition improved and his BUN and creatinine improved from 79/5.02 to 32/1.2. Since his condition has improved, we are going to let him go home today. It should be noted that on his presentation sodium levels were found to be 126 and now they have improved to 143. We are going to leave the Sinclair catheter in since the patient had bladder outlet obstruction and Dr. Blackmon is going to decide about that when patient follows up with him next week. DISCHARGE MEDICATIONS: 1. Amlodipine 10 mg orally once daily. 2. Aspirin 81 mg orally once daily. 3. Atorvastatin 40 mg orally once daily at bedtime. 4. Fenofibrate 160 mg orally once daily. 5. Multivitamin orally once daily. 6. Fish oil 1000 mg 2 capsules twice daily. 7. Glimepiride 1 mg orally once daily in the morning. 8. Metformin 1000 mg orally twice daily. 9. Losartan 100 mg orally once daily. 10. Meloxicam 15 mg orally once daily as needed for arthritis. 11. Lyrica 50 mg orally twice daily. 12. Symbicort 160/4.5 two puffs twice daily. 13. Tamsulosin 0.4 mg orally twice daily. FOLLOWUP: He will follow up with Dr. Blackmon in approximately 1 week and follow up with me at the office in approximately 10 days. CONDITION: Stable. DISPOSITION: Home. TIME SPENT: A total of more than 40 minutes were spent during the discharge process. MTDD
--- NOTE | 2016-10-04 17:45 | OPERATIVE NOTE ---
PROCEDURE DATE: 09/15/2016 SURGEON: Goldy Blackmon MD PREOPERATIVE DIAGNOSES: 1. Acute kidney injury. 2. Hydronephrosis. 3. Presumed large distal ureteral stone on the right. POSTOPERATIVE DIAGNOSES: 1. Acute kidney injury. 2. Urinary retention. 3. Three large bladder stones. PRIMARY PROCEDURES: Holmium laser cystolitholapaxy. INDICATIONS: A 71-year-old male who had seen wa in the past for urolithiasis. He underwent lithotripsy on the left side. He presented with urinary retention and acute kidney injury and CT findings suggestive of right ureterovesical junction stone which was approximately 15 mm. He was counseled on right ureteroscopy with laser lithotripsy. FINDINGS: The stone was actually not in the distal ureter but in a diverticulum adjacent to the ureteral orifice likely causing the ureteral obstruction. He also had 2 other large stones. He did have trilobar prostatic hypertrophy. The largest stone was under 2.5 cm. DESCRIPTION OF PROCEDURE: After obtaining informed consent patient was brought to the operative room. Perioperative antibiotics and laryngeal mask anesthesia were administered. His indwelling Sinclair catheter was removed and he was prepped and draped sterile fashion. A 21-Greenlandic rigid cystoscope was used to gain access to the bladder which was then examined systematic fashion. He did have trilobar hypertrophy with moderate trabeculations and several diverticula. Upon entrance to the bladder we noticed the right ureteral orifice and a immediately adjacent diverticulum next to it with a fairly sizable stone. There were 2 other stones in the urinary bladder. He had no mucosal lesions with exception to mild irritation of the mucosa in the posterior bladder wall consistent with Sinclair catheter. We then removed the cystoscope and introduced 23-Greenlandic cystoscope sheath followed by introduction of 1000 micron Holmium laser fiber. The stones were broken up and fragments were irrigated repeatedly. Repeat examination revealed no obvious evidence of injury to either ureter orifice or residual sizable fragments. We replaced Sinclair catheter in the standard fashion. He was extubated, taken to PACU further recovery. ESTIMATED BLOOD LOSS: None. COMPLICATIONS: None. DISPOSITION: Back to floor with 16-Greenlandic Sinclair catheter to gravity drainage.
== END 2016-09-17 13:11 | disposition home health service (06) | DRG 682 ==
LOC: ED 09:06 → 3N 14:20
PROVIDERS: ADMIT Internal Medicine; ATTEND Internal Medicine
PROC: 0TCB8ZZ Extirpation of Matter from Bladder, Via Natural or Artificial Opening Endoscopic (ICD-10-PCS; principal; 2016-09-15 12:01)
DX: N17.9 Acute kidney failure, unspecified (principal); G93.49 Other encephalopathy; E11.40 Type 2 diabetes mellitus with diabetic neuropathy, unspecified; Q68.1 Congenital deformity of finger(s) and hand; I69.954 Hemiplegia and hemiparesis following unspecified cerebrovascular disease affecting left non-dominant side; E87.1 Hypo-osmolality and hyponatremia; N13.8 Other obstructive and reflux uropathy; N28.1 Cyst of kidney, acquired; N21.0 Calculus in bladder; N40.1 Benign prostatic hyperplasia with lower urinary tract symptoms; N32.89 Other specified disorders of bladder; N32.3 Diverticulum of bladder; I10 Essential (primary) hypertension; E78.5 Hyperlipidemia, unspecified; G47.33 Obstructive sleep apnea (adult) (pediatric); Q66.9 Congenital deformity of feet, unspecified; M19.90 Unspecified osteoarthritis, unspecified site; F41.9 Anxiety disorder, unspecified; F32.9 Major depressive disorder, single episode, unspecified; E66.9 Obesity, unspecified; F17.210 Nicotine dependence, cigarettes, uncomplicated; Z79.899 Other long term (current) drug therapy; Z79.82 Long term (current) use of aspirin; Z79.84 Long term (current) use of oral hypoglycemic drugs; Z85.828 Personal history of other malignant neoplasm of skin; Z91.81 History of falling; Z87.442 Personal history of urinary calculi; Z68.36 Body mass index [BMI] 36.0-36.9, adult
CPT/HCPCS: 51703; 70450; 71010; 74176; 76000; 80048; 80053; 81001; 82948; 83880; 85025; 93005; 94640; 94761; J0330; J0690; J1630; J1815; J2060; J7030; J7120; P9612

== ENCOUNTER 2016-09-19 20:16 | Inpatient (IN) | payer OTHER ==
[2016-09-19] MEDS ORDERED: NS 500 ML IV ONE ×2 (20:47→22:59)
--- NOTE | 2016-09-19 20:54 | PROVIDER DOCUMENTATION ---
HPI-General Adult - General Source: patient - History of Present Illness -Gen Adult Nature of Presenting Problems: 71 y/o male presents to the ER via EMS with complaint of dizziness. Pt had lithortripsy 5 days ago. Pt has hx of kidney failure, stroke. Left sided deformity noted in face, hand and bilateral feet. 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 Onset/Duration: reports: just prior to arrival Timing: reports: still present Associated Symptoms: reports: syncope, weakness <Lakshmi James - Last Filed: 09/19/16 22:52> <Nick Velez - Last Filed: 09/19/16 23:31> - General Chief Complaint: Near Syncope Stated Complaint: lower back pain Time Seen by Provider: 09/19/16 20:34 Allergies/Adverse Reactions: Patient Allergies Allergy/AdvReac Type Severity Reaction Status Date / Time No Known Allergies Allergy Verified 09/19/16 20:27 Home Medications: Home Medication List Medication Instructions Recorded Confirmed Last Taken Type ATORVAstatin [Lipitor] 40 mg PO QHS 09/08/16 09/19/16 1 Day Ago History Amlodipine [Norvasc] 10 mg PO DAILY 09/08/16 09/19/16 1 Day Ago History Aspirin 81 mg PO DAILY 09/08/16 09/19/16 1 Day Ago History Budesonide/Formoterol Fumarate 10.2 gm IH BID 09/08/16 09/19/16 1 Day Ago History [Symbicort 160-4.5 Mcg Inhaler] Fenofibrate [Lofibra] 160 mg PO DAILY 09/08/16 09/19/16 1 Day Ago History Glimepiride [Amaryl] 1 mg PO QAM 09/08/16 09/19/16 1 Day Ago History Losartan Potassium 100 mg PO DAILY 09/08/16 09/19/16 1 Day Ago History Magnesium Oxide [Magnesium] 500 mg PO DAILY 09/08/16 09/19/16 1 Day Ago History Metformin HCl [Glumetza] 1,000 mg PO BID 09/08/16 09/19/16 1 Day Ago History Multivitamin [Men's Multi-Vitamin] 1 each PO DAILY 09/08/16 09/19/16 1 Day Ago History Pregabalin [Lyrica] 50 mg PO BID 09/08/16 09/19/16 1 Day Ago History Baclofen 10 mg PO DAILY PRN PRN #0 09/17/16 09/19/16 1 Day Ago Rx Meloxicam 15 mg PO DAILY PRN PRN #0 09/17/16 09/19/16 1 Day Ago Rx Tamsulosin [Flomax] 0.4 mg PO BID #0 capsule 09/17/16 09/19/16 Unknown Rx Review of Systems - Adult - REVIEW OF SYSTEMS - ADULT Constitutional: denies: chills, fever Eyes: reports: decreased vision (blind in left eye) Ears, Nose, Mouth & Throat: reports: other (tooth loss). denies: ear discharge Cardiovascular: reports: syncope Respiratory: reports: no symptoms reported Gastrointestinal: reports: no symptoms reported Genitourinary: reports: other (lithortripsy 5 days prior) Musculoskeletal: reports: other (deformity of limbs bilateral) Integumentary: reports: no symptoms reported Neurological: reports: dizziness/vertigo, paresthesia (left sided facial droop) , syncope Psychiatric: reports: no symptoms reported Endocrine: reports: no symptoms reported Hematologic/Lymphatic: reports: no symptoms reported Allergic/Immunologic: reports: no symptoms reported All Other Systems: Reviewed and Negative <Lakshmi James - Last Filed: 09/19/16 22:52> Past History - Adult - PAST MEDICAL HISTORY-ADULT Review of Records: reports: Nursing Assessment Review, Medications Reviewed Cardiovascular: reports: HTN Musculoskeletal: reports: arthritis Neurological: reports: CVA Endocrine/Immune: reports: Diabetes - IMMUNIZATION STATUS Childhood Immunizations: See Nurse Assessment Flu Vaccine: See Nurse Assessment - FAMILY HISTORY Family History: reviewed, not pertinent <Lakshmi James - Last Filed: 09/19/16 22:52> Physical Exam-General - CONSTITUTIONAL General Appearance: alert, no apparent distress - EYES Eyes: PERRL/EOMI, other (blind left eye) - HEAD, EARS, NOSE, MOUTH & THROAT HENMT: normocephalic/atraumatic, moist mucous membranes - NECK Neck: non-tender, supple - RESPIRATORY Respiratory: lungs clear, no respiratory distress - CARDIOVASCULAR Cardiovascular: normal peripheral pulses, regular rate, rhythm - GASTROINTESTINAL (ABDOMEN) Abdominal Exam: distended, hernia. negative: normal bowel sounds - MUSCULOSKELETAL Back Exam: normal inspection, no CVA tenderness Extremity: normal range of motion, deformity (bilateral lower extremity deformilty, left upper extremity deformity) - SKIN Integumentary: normal color, warm/dry - NEUROLOGIC Neurologic: facial droop (left) - PSYCHIATRIC Psych/Mental Status: normal mood/affect, normal thought content, normal thought process <Lakshmi James - Last Filed: 09/19/16 22:52> Progress - EKG 1 Time of EKG reading by physician:: 20:48 EKG Read and Signed by:: Nick Velez EKG Interpretation (*Must complete 3 of following elements*): Normal Rate: 74 Rhythm: sinus rhythm with premature atrial complexes [place]: normal - CT/MRI 1 CT Study: Abdomen, Pelvis Impression: Normal CT Results: Small risidual stone frangments in bladder otherwise normal per radiologist <Lakshmi James - Last Filed: 09/19/16 22:52> - CONSULTS/PCP/HOSPITALIST Notification #1 *Consult/PCP/Hospitalist*: Dr. Leong, hospitalist Time Discussed: 23:20 <Nick Velez - Last Filed: 09/19/16 23:31> Departure <Lakshmi James - Last Filed: 09/19/16 22:52> - Departure Time of Disposition Order: 22:55 Certified Medical Emergency: Emergent <Nick Velez - Last Filed: 09/19/16 23:31> - Departure DIAGNOSIS: Orthostatic hypotension Leukocytosis Qualifiers: Leukocytosis type: unspecified Qualified Code(s): D72.829 - Elevated white blood cell count, unspecified UTI (urinary tract infection) Qualifiers: Urinary tract infection type: site unspecified Hematuria presence: with hematuria Qualified Code(s): N39.0 - Urinary tract infection, site not specified Sepsis Qualifiers: Sepsis type: sepsis due to unspecified organism Qualified Code(s): A41.9 - Sepsis, unspecified organism Disposition: ADMITTED INPATIENT 09 Condition: Stable Referrals: None,PCP [Primary Care Provider] - Attestation - Scribe Verification/Attestation Scribe:: Lakshmi James Acting as Scribe for:: Nick Velez Scribe documention review:: This chart was documented by a scribe and accurately reflects the service the provider performed and the decisions made by the provider. <Lakshmi James - Last Filed: 09/19/16 22:52> Physician Attestation
[2016-09-19 21:30] LABS: MANUAL DIFF NEEDED? NO
[2016-09-19 21:32] LABS: BASO% 0.4 % (0.0-0.8); EOS# 0.26 X1000 (0.0-0.7); EOS% 1.7 % (0.0-10.0); HEMATOCRIT 30.8 % (42.0-52.0); IMM GRAN# 0.36 X1000 (0.0-0.04); IMM GRAN% 2.3 % (0.0-0.5); LYMPH# 1.27 X1000 (1.2-3.4); LYMPH% 8.1 % (20.5-51.1); MCHC 32.5 g/dL (33-37); MCV 92.5 FL (81-99); MONO# 0.99 X1000 (0.11-0.59); MONO% 6.3 % (1.7-9.3); MPV 10.8 FL (7.4-10.4); NEUT% 81.2 % (42.2-75.2); PLT 305 X1000 (130-400); RBC 3.33 XMIL (4.7-6.1)
[2016-09-19 21:46] LABS: INR 1.05 (0.86-1.15); PTT PL 27.8 Seconds (22.6-43.9)
[2016-09-19 21:54] LABS: ALBUMIN 3.1 g/dL (3.5-5.0); MAGNESIUM 1.7 mg/dL (1.5-2.7); POTASSIUM 4.5 mmol/L (3.5-5.1); TOTAL BILIRUBIN 0.3 mg/dL (0.20-1.00); TOTAL PROTEIN 5.5 g/dL (6.3-8.3)
[2016-09-19 22:35] LABS: URINE SOURCE CATH
[2016-09-19] MEDS ORDERED: ROCEPHIN 1 GM/NS 50 ML IV STA (22:56)
[2016-09-19 23:01] LABS: BILIRUBIN URINE NEGATIVE (NEGATIVE); BLOOD URINE 2+ (NEGATIVE); CLARITY CLEAR (CLEAR); COLOR YELLOW; GLUCOSE URINE NEGATIVE (NEGATIVE); LEUKOCYTES URINE 2+ (NEGATIVE); NITRITE URINE NEGATIVE (NEGATIVE); PROTEIN URINE 1+(30 mg/dL) mg/dL (NEGATIVE); URINE EPITHELIAL CELLS <10 /HPF (<10); URINE WBC 20-40 /HPF (<10); UROBILINOGEN URINE NORMAL
[2016-09-19 23:02] LABS: URINE CULTURE PL NEEDED? YES
[2016-09-19] MEDS ORDERED: NS 2,000 ML IV ONE (23:17)
[2016-09-19] MEDS: ZOSYN 4.5 GM/NS 100 ML IV SCH (23:46)
[2016-09-20 01:23] LABS: INR 1.08 (0.86-1.15); PROTIME 14.3 Seconds (12.1-15.5)
[2016-09-20 01:24] LABS: PTT PL 28.8 Seconds (22.6-43.9)
[2016-09-20] MEDS: NS 1,000 ML IV SCH ×4 (02:47→20:10)
[2016-09-20 09:11] LABS: OCCULT BLOOD 1 POSITIVE (NEGATIVE)
--- NOTE | 2016-09-20 09:19 | Diag Imaging Result Document ---
PROCEDURE NAME: CHEST-PORTABLE - 09/19/2016 ERECT AP PORTABLE CHEST, 09/19/2016 AT 2254 HOURS: FINDINGS: There is no evidence of acute cardiac or pulmonary disease and, compared to 09/14/2016, there has been no significant change. IMPRESSION: Stable chest.
--- NOTE | 2016-09-20 09:24 | EKG Report ---
Test Performed on : 09/19/2016 8:48:02 PM Test Reason : CHEST PAIN Blood Pressure : / mmHG Vent. Rate : 074 BPM Atrial Rate : 074 BPM P-R Int : 156 ms QRS Dur : 086 ms QT Int : 382 ms P-R-T Axes : 055 037 054 degrees QTc Int : 424 ms Sinus rhythm. with premature atrial complexes. Otherwise normal ECG When compared with ECG of 14-SEP-2016 09:40, (Unconfirmed) premature atrial complexes. are now present Unconfirmed Result
[2016-09-20 09:44] LABS: MANUAL DIFF NEEDED? NO
[2016-09-20 09:46] LABS: BASO% 0.4 % (0.0-0.8); EOS# 0.21 X1000 (0.0-0.7); EOS% 1.6 % (0.0-10.0); HEMOGLOBIN 9.1 g/dL (14.0-18.0); IMM GRAN# 0.28 X1000 (0.0-0.04); IMM GRAN% 2.1 % (0.0-0.5); LYMPH# 1.06 X1000 (1.2-3.4); MCH 29.7 PG (27-31); MCHC 31.4 g/dL (33-37); MCV 94.8 FL (81-99); MONO# 0.71 X1000 (0.11-0.59); MONO% 5.4 % (1.7-9.3); MPV 11.9 FL (7.4-10.4); NEUT% 82.5 % (42.2-75.2); PLT 273 X1000 (130-400); RBC 3.06 XMIL (4.7-6.1)
[2016-09-20 09:57] LABS: CALCIUM 8.7 mg/dL (8.8-10.2); POTASSIUM 4.6 mmol/L (3.5-5.1)
[2016-09-20] MEDS: ZOSYN 4.5 GM/NS 100 ML IV SCH ×3 (11:04→18:43)
[2016-09-20] MEDS ORDERED: LIORESAL PO PRN ×2 (11:23→19:45)
[2016-09-20] MEDS ORDERED: AMARYL PO SCH (11:30)
[2016-09-20] MEDS ORDERED: MAG-OX PO SCH (11:30)
[2016-09-20] MEDS ORDERED: TRICOR PO SCH (11:30)
[2016-09-20] MEDS ORDERED: FLOMAX PO SCH (11:30)
[2016-09-20] MEDS ORDERED: SYMBICORT 160/4.5 MICROGM INHALER INH SCH (11:30)
[2016-09-20] MEDS ORDERED: THERA M PLUS PO SCH (11:30)
[2016-09-20] MEDS ORDERED: LYRICA PO SCH (11:30)
--- NOTE | 2016-09-20 11:38 | Diag Imaging Result Document ---
PROCEDURE NAME: ABDOMEN/PELVIS W/O CONTRAST - 09/19/2016 CT UROGRAM WITHOUT CONTRAST: FINDINGS: There is a small pleural-based nodule present in the right middle lobe on image 6 measuring less than 6 mm in diameter. This was also present on to 09/14/2016 and 01/15/2016. There is mild left lower lobe atelectasis. There are calcified granulomata in the liver and spleen. There is some hyperplasia of the right adrenal gland. The left is markedly enlarged measuring over 4 cm in greatest dimension. The CT density is -8 Hounsfield units which would be consistent with hyperplasia or an adenoma. The adrenal gland has not changed significantly in size or appearance since the previous study. Compared to the previous examination, there are now stone fragments in the proximal right ureter. There is hydronephrosis which was also present at the time of the previous study. There is still nephrolithiasis in the collecting system on the right side but the hydronephrosis which was present previously is no longer present. The large stone fragments seen in the bladder or ureterovesical junction region on the right side on the previous study is no longer present. However, there are tiny stone fragments adjacent to the Sinclair balloon on the right. The bladder is completely decompressed. Multiple cortical cysts are present. Some of these are calcified in the lower pole of the right kidney and in the lateral upper pole region on the left. These findings were all present on 01/19/2016. There is an apparent lipoma in the central renal sinus on the right side. Otherwise, there has been no appreciable change in the abdomen and pelvis. IMPRESSION: Stone fragments in the proximal left ureter. Improved hydronephrosis on the right. Otherwise unchanged since 01/15/2016.
--- NOTE | 2016-09-20 15:19 | HISTORY AND PHYSICAL ---
HISTORY OF PRESENT ILLNESS: Patient is a somewhat poor historian. It appears though his called the ambulance and because he was somnolent and difficulty waking. He had lithotripsy approximately 5 days ago due to a kidney stone. Has a history of kidney failure. Currently, the patient himself is unclear as to why he is in the hospital. States that he is feeling fine. He would like to eat. Denies any knowledge of yesterday's symptoms. 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 He has a left-sided deformity noted in his face and his hands. 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 He has a history of a stroke, kidney stones, lithotripsy 5 days ago, history of hypertension, diabetes, and chronic arthritis. REVIEW OF SYSTEMS: Difficult to obtain. Patient notes that he has been dizzy. States he has had issues with constipation but denies any issues with constipation. Denies any nausea, vomiting, fevers, or chills. Denies cough, congestion, or shortness of breath. Denies any headaches or blurred vision. ALLERGIES: No known drug allergies. MEDICATIONS: Lipitor 40, Norvasc 10, aspirin 81, Symbicort b.i.d., fenofibrate 160, Amaryl 1, losartan 100, magnesium 500 daily, Glumetza 1000 b.i.d., multivitamin, Lyrica 50 b.i.d., baclofen 10 daily, Mobic 15 daily, and Flomax 0.4 b.i.d. FAMILY HISTORY: Noncontributory. SOCIAL HISTORY: Patient is and lives at home. Does not smoke or drink. PHYSICAL EXAMINATION: VITAL SIGNS: Temperature 98, pulse 86, respiratory rate 11, blood pressure 104/53, saturation 98% on 2 liters. GENERAL: Patient well developed, well nourished. He is currently in no real respiratory distress. He is awake, alert. NECK: Supple. CARDIOVASCULAR: Regular rate. CHEST: Relatively clear. ABDOMEN: Soft. EXTREMITIES: Moves all extremities. NEUROLOGIC: No focal changes. LABORATORIES: WBCs 15. Hemoglobin and hematocrit 10 and 32. Sodium 135, creatinine 1.5. Albumin 3.1. Urinalysis 10-20 white cells. Stool occult blood positive. ASSESSMENT: 1. Urinary tract infection. 2. Chronic renal failure. 3. Mild protein malnutrition. 4. Leukocytosis. 5. Questionable syncopal episode. 6. Hypotension in a patient with known high blood pressure. 7. Benign prostatic hypertrophy. 8. Chronic neuropathy. 9. Diabetes. 10. Chronic arthritis. PLAN: Given the patient's creatinine of 1.5, we will hold his Glucovance as well as his Mobic today. Continue his magnesium and Lyrica. We will also hold his losartan, as his blood pressures have been low. Uncertain of what his typical blood pressure runs. He is on losartan and Norvasc. We will hold both and we will hold his aspirin given that he was heme-positive in the ICU. Hemoglobin and hematocrit has remained stable. Patient denies any abdominal pain. Denies any symptoms. Will continue to follow his apparent urinary tract infection and leukocytosis. Will follow cultures. Further orders as needed.
[2016-09-20 16:03] LABS: MANUAL DIFF NEEDED? NO
[2016-09-20 16:08] LABS: BASO% 0.3 % (0.0-0.8); EOS# 0.28 X1000 (0.0-0.7); HEMATOCRIT 24.1 % (42.0-52.0); HEMOGLOBIN 7.6 g/dL (14.0-18.0); IMM GRAN# 0.18 X1000 (0.0-0.04); IMM GRAN% 1.9 % (0.0-0.5); LYMPH# 1.49 X1000 (1.2-3.4); LYMPH% 15.8 % (20.5-51.1); MCH 29.5 PG (27-31); MCHC 31.5 g/dL (33-37); MCV 93.4 FL (81-99); MONO# 0.59 X1000 (0.11-0.59); MONO% 6.2 % (1.7-9.3); MPV 10.3 FL (7.4-10.4); NEUT% 72.8 % (42.2-75.2); PLT 234 X1000 (130-400); RBC 2.58 XMIL (4.7-6.1)
[2016-09-20] MEDS ORDERED: PROTONIX 80 MG in NS 80 ML IV ONE ×2 (17:34→21:00)
[2016-09-20] MEDS ORDERED: PROTONIX 80 MG in NS 80 ML IV SCH (17:45)
[2016-09-20] MEDS: PROTONIX 80 MG in NS 80 ML IV SCH (20:09)
[2016-09-20] MEDS: FLOMAX PO SCH (22:22)
[2016-09-20] MEDS: CARAFATE LIQUID PO SCH (22:22)
[2016-09-20] MEDS: PROTONIX IV SCH (22:22)
[2016-09-20] MEDS: LYRICA PO SCH (22:22)
[2016-09-20] MEDS: NS 250 ML IV SCH (22:56)
[2016-09-21] MEDS: CARAFATE LIQUID PO SCH ×4 (01:25→20:09)
[2016-09-21] MEDS: ZOSYN 4.5 GM/NS 100 ML IV SCH ×4 (01:25→18:13)
[2016-09-21] MEDS: NS 250 ML IV SCH (02:24)
[2016-09-21] MEDS: NS 1,000 ML IV SCH ×3 (03:16→20:08)
[2016-09-21] MEDS: PROTONIX 80 MG in NS 80 ML IV SCH ×2 (05:47→16:38)
[2016-09-21] MEDS ORDERED: AMARYL PO SCH (08:00)
[2016-09-21] MEDS: LYRICA PO SCH ×2 (08:28→20:09)
[2016-09-21] MEDS: FLOMAX PO SCH ×2 (08:28→20:09)
[2016-09-21] MEDS: MAG-OX PO SCH (08:28)
[2016-09-21] MEDS: THERA M PLUS PO SCH (08:29)
[2016-09-21] MEDS: TRICOR PO SCH (08:29)
[2016-09-21] MEDS: SYMBICORT 160/4.5 MICROGM INHALER INH SCH ×2 (08:33→19:22)
[2016-09-21] MEDS ORDERED: MYLICON DROPS (DOSE) MISC ONE (10:18)
[2016-09-21] MEDS ORDERED: DIPRIVAN 1% ONE (10:45)
[2016-09-21] MEDS: PROTONIX IV SCH (10:57)
[2016-09-21] MEDS ORDERED: EXTENSION SET 32 IN 4522 ONE (11:00)
[2016-09-21] MEDS ORDERED: XYLOCAINE-MPF 2% ONE (11:00)
[2016-09-21] MEDS ORDERED: LR 1,000 ML ONE (11:00)
[2016-09-21] MEDS ORDERED: NS 250 ML ONE (11:00)
[2016-09-21] MEDS ORDERED: ANESTHESIA PB SET 88 IN 5742 ONE (11:00)
--- NOTE | 2016-09-21 14:54 | OPERATIVE NOTE ---
PROCEDURE DATE: 09/21/2016 ADMITTING PHYSICIAN: Moses Guzman MD PROCEDURE PERFORMED: Esophagogastroduodenoscopy. PREOPERATIVE DIAGNOSES: 1. Melena. 2. Anemia with drop in hematocrit, requiring 2 units of blood transfusion. 3. History of use of nonsteroidal anti-inflammatory drugs, on Mobic everyday, 15 mg. 4. History of use of aspirin. 5. Kidney stones, requiring treatment per Dr. James. POSTOPERATIVE DIAGNOSES: 1. Normal esophagus. 2. Z-line visualized at 40 cm. There were areas of mild gastritis in the stomach antrum. 3. Normal fundus, cardia, and incisura on retroflexion. 4. Small amount of bile in the stomach. 5. Evidence of severe duodenitis in the duodenal bulb, erosive type. 6. Evidence of a large ulcer at the apex of the duodenal bulb, measuring at least 2 cm, flat, with 2 flat red spots noted with no active bleeding. No visible clot. No visible vessel. The 2nd portion of the duodenum appeared normal. There was no evidence of any fresh or old blood in the entire EGD. ESTIMATED BLOOD LOSS: None. COMPLICATIONS: None. ANESTHESIA: Monitored anesthesia care. SPECIMENS: None. DESCRIPTION OF PROCEDURE: After informed consent from the patient, explaining the risks, benefits, indications, and alternatives, the patient was prepared for EGD. The risks included infection, bleeding, pain, trauma to the surrounding structures, perforation, and were explained to the patient, among others, and he acknowledged understanding and agreed to proceed. The patient was brought to the OR and turned into the left lateral position. A bite block was placed. After adequate monitored anesthesia care, the upper scope was gently introduced through the vestibule all the way to the 2nd portion of the duodenum. The esophagus as normal in its entire length. The Z-line was visualized at 40 cm. The scope was then advanced into the stomach which showed evidence of bile in the stomach. Examination showed evidence of mild erythema in the gastric antrum, suggesting mild gastritis. Retroflexion revealed normal fundus, cardia, and incisura. The scope was advanced to the duodenum, which showed evidence of erythema and erosions in the entire duodenal bulb, suggesting moderate to severe degree of erosive duodenitis. At the apex of the duodenal bulb, there was evidence of a large, flat ulcer, measuring about 2 cm in greatest dimension, approximately. The area was carefully traversed and we noted there was edema at the apex of the duodenal bulb. The scope was gently retroflexed in the stomach, which appeared normal. There was no evidence of fresh or old blood in the duodenal bulb or 2nd portion of the duodenum. The scope was then pulled black into the position of the gastric, pulled back into the area of duodenal ulcer. The area of the ulcer was carefully visualized and washed. We found 2 flat red spots. We did not find any visible vessel or any visible clot at the area. At that time, the decision was made not to treat the ulcer. The air was aspirated as the scope was withdrawn. The patient tolerated the procedure and is being monitored in the OR in stable condition. I discussed the findings with the patient upon waking him and all questions were answered. RECOMMENDATIONS: 1. The patient was given Protonix IV for 72 hours and to have Protonix IV b.i.d. for next hospital stay and, on discharge, he will benefit from Protonix twice daily for 3 months. The patient will be on Carafate 1 g every 6 hours for 6 weeks. 2. The patient is going to be on Iron-C 1 capsule p.o. b.i.d. for 3 months. 3. The patient will be on Centrum Silver once daily for 3 months. 4. The patient will follow up in the clinic in 3 months. We will repeat EGD in 3 months to document healing of the large ulcers. 5. The patient is to avoid any NSAIDs for now. 6. The patient is to follow gastroesophageal reflux life changes; avoid excessive tea, coffee, soda, tomatoes, onions, and anything spicy. 7. The patient will start on a clear liquid diet for now for 3 days and advance as tolerated. 8. Further recommendations to follow.
[2016-09-21] MEDS: ICAR-C PO SCH (20:09)
--- NOTE | 2016-09-21 22:22 | PROGRESS NOTE ---
DATE: 09/21/2016 SUBJECTIVE: Patient is somewhat a poor historian. Presented on 09/19/2016. called the ambulance because he was somnolent, difficult waking up. He had lithotripsy approximately 5 days previous to this admission due to a kidney stone. History of kidney failure currently, patient unclear how long and why he is in the hospital. States that he is feeling fine and would like to eat. The patient does note to be blind in the left eye. Left-sided facial droop which is chronic. Left-sided deformity of his face and states that he also has deformity of his hand with loss of fingers on that left hand, bilateral foot deformities, right hand not fully developed. History of stroke, kidney stone, lithotripsy 5 days ago. He presented with what appeared to be urinary tract infection. Hemoglobin and hematocrit were 10 and 32 respectively. History of chronic renal failure. Mild protein calorie malnutrition. Leukocytosis. Questionable syncopal episode. The patient was known to have high blood pressure, benign prostatic hypertrophy, chronic neuropathy, diabetes and chronic arthritis. So admitted to the hospital. Anemia was addressed. EGD performed today and found a large duodenal ulcer. OBJECTIVE: Vital signs: Temperature 98.5 degrees, pulse 58, respirations 18, blood pressure 141/58. Blood pressure looks stable. Lungs: Clear in all lung rojas. Cardiovascular: Regular rhythm and rate without murmur or S3. Abdomen: Soft. Skin: Warm and dry. : Urine output was 3500 mL. PERTINENT DATA: Hemoglobin dropped to 7.6, hematocrit 24. Chemistry: Sodium 138, potassium 4.6, chloride 104, bicarb 21, BUN 43, creatinine 1.5. ASSESSMENT: 1. Urinary tract infection. Continue present antibiotics. 2. Anemia, microcytic anemia from blood loss anemia. Large duodenal ulcer apparently found. Continue proton pump inhibitor intravenously, high dose. 3. Mild protein calorie malnutrition. 4. Benign prostatic hypertrophy. 5. Chronic neuropathy. 6. Questionable syncopal event. 7. Diabetes. Sugars appear to be running around the 200s. PLAN: Review of orders, I think he has received a total of 4 packed red blood cells. He is on iron carbonyl 1 b.i.d. Protonix 40 mg IV q.12 hours. Normal saline. Carafate 1 g q.6 hours. Normal saline is running in 250 mg IV. He is on TriCor 145 mg a day. Multivitamin. Magnesium oxide 4 mg a day. Budesonide formoterol inhaler b.i.d. I think we are planning on checking on his hemoglobin and hematocrit. We will check some levels in the morning.
[2016-09-22] MEDS: PROTONIX 80 MG in NS 80 ML IV SCH (01:05)
[2016-09-22] MEDS: CARAFATE LIQUID PO SCH ×4 (01:05→19:33)
[2016-09-22] MEDS: ZOSYN 4.5 GM/NS 100 ML IV SCH ×3 (01:05→12:17)
[2016-09-22] MEDS: NS 1,000 ML IV SCH ×3 (03:20→18:25)
[2016-09-22 04:38] LABS: MANUAL DIFF NEEDED? NO
[2016-09-22 04:56] LABS: AGAP 9; BUN 11 mg/dL (8-22); CALCIUM 8.3 mg/dL (8.8-10.2); CHLORIDE 106 mmol/L (98-107); COSMO 281; MAGNESIUM 1.5 mg/dL (1.5-2.7); POTASSIUM 3.7 mmol/L (3.5-5.1); SODIUM 141 mmol/L (136-145); TCO2 26 mmol/L (25-35)
[2016-09-22 05:01] LABS: BASO% 0.5 % (0.0-0.8); EOS# 0.31 X1000 (0.0-0.7); EOS% 4.7 % (0.0-10.0); HEMATOCRIT 28.7 % (42.0-52.0); HEMOGLOBIN 9.1 g/dL (14.0-18.0); IMM GRAN# 0.13 X1000 (0.0-0.04); LYMPH# 1.26 X1000 (1.2-3.4); LYMPH% 19.2 % (20.5-51.1); MCH 28.7 PG (27-31); MCHC 31.7 g/dL (33-37); MCV 90.5 FL (81-99); MONO# 0.42 X1000 (0.11-0.59); MONO% 6.4 % (1.7-9.3); MPV 10.5 FL (7.4-10.4); NEUT% 67.2 % (42.2-75.2); PLT 230 X1000 (130-400); RBC 3.17 XMIL (4.7-6.1)
[2016-09-22] MEDS: SYMBICORT 160/4.5 MICROGM INHALER INH SCH ×2 (07:29→19:30)
[2016-09-22] MEDS: FLOMAX PO SCH ×2 (08:53→20:08)
[2016-09-22] MEDS: MAG-OX PO SCH (08:53)
[2016-09-22] MEDS: THERA M PLUS PO SCH (08:53)
[2016-09-22] MEDS: ICAR-C PO SCH ×2 (08:54→20:08)
[2016-09-22] MEDS: TRICOR PO SCH (08:54)
[2016-09-22] MEDS ORDERED: THERA M PLUS PO SCH (09:00)
[2016-09-22] MEDS: LYRICA PO SCH ×2 (09:30→20:08)
[2016-09-22] MEDS: HUMALOG SUBQ SCH ×3 (12:15→20:08)
[2016-09-23] MEDS: NS 1,000 ML IV SCH ×3 (02:35→23:57)
[2016-09-23] MEDS: CARAFATE LIQUID PO SCH ×4 (02:35→21:07)
[2016-09-23 04:45] LABS: MANUAL DIFF NEEDED? NO
[2016-09-23 04:57] LABS: BASO% 0.5 % (0.0-0.8); EOS# 0.28 X1000 (0.0-0.7); EOS% 4.7 % (0.0-10.0); HEMATOCRIT 29.6 % (42.0-52.0); HEMOGLOBIN 9.5 g/dL (14.0-18.0); IMM GRAN# 0.12 X1000 (0.0-0.04); LYMPH# 1.27 X1000 (1.2-3.4); LYMPH% 21.2 % (20.5-51.1); MCH 29.2 PG (27-31); MCHC 32.1 g/dL (33-37); MCV 91.1 FL (81-99); MONO# 0.41 X1000 (0.11-0.59); MONO% 6.8 % (1.7-9.3); NEUT% 64.8 % (42.2-75.2); PLT 239 X1000 (130-400); RBC 3.25 XMIL (4.7-6.1)
[2016-09-23 05:20] LABS: AGAP 8; BUN 6 mg/dL (8-22); CALCIUM 8.3 mg/dL (8.8-10.2); CHLORIDE 103 mmol/L (98-107); COSMO 277; POTASSIUM 3.3 mmol/L (3.5-5.1); SODIUM 140 mmol/L (136-145); TCO2 29 mmol/L (25-35)
[2016-09-23] MEDS ORDERED: KLOR-CON PO ONE (06:30)
[2016-09-23] MEDS: SYMBICORT 160/4.5 MICROGM INHALER INH SCH ×2 (07:03→19:37)
[2016-09-23] MEDS: HUMALOG SUBQ SCH ×4 (07:05→22:50)
[2016-09-23] MEDS: LYRICA PO SCH ×2 (08:41→21:07)
[2016-09-23] MEDS: NORVASC PO SCH (08:41)
[2016-09-23] MEDS: ICAR-C PO SCH ×2 (08:41→21:07)
[2016-09-23] MEDS: GLUCOPHAGE PO SCH ×2 (08:41→16:32)
[2016-09-23] MEDS: COZAAR PO SCH (08:41)
[2016-09-23] MEDS: TRICOR PO SCH (08:41)
[2016-09-23] MEDS: FLOMAX PO SCH ×2 (08:41→21:08)
[2016-09-23] MEDS: THERA M PLUS PO SCH (08:42)
[2016-09-23] MEDS: MAG-OX PO SCH (08:42)
--- NOTE | 2016-09-23 15:22 | PROGRESS NOTE ---
DATE: 09/23/2016 SUBJECTIVE: Patient currently resting in chair. He denies any new complaints.Vitals: Temperature of 97.6 degrees, pulse of 74, respiratory rate of 17, blood pressure 125/49, saturating 98% on room air. General Appearance: Obese, lying in a chair in no acute distress. HEENT: Mild pallor. No icterus. Neck: Supple. Abdomen: Obese, soft, nontender, nondistended. Bowel sounds heard. No guarding. Extremities: No cyanosis or clubbing. Neurologic: Alert, awake, oriented x3. LABS: Hemoglobin and hematocrit is 9.5 and 29.6. His BUN and creatinine is 6 and 0.9. IMPRESSION AND PLAN: 1. Anemia secondary to gastrointestinal bleed. In this regard the patient will be on Iron C b.i.d. for 3 months. 2. Large duodenal ulcer. In this regard will be on Protonix twice daily for now and then we will repeat the EGD in 3 months. We will also give him Carafate 1 g every 6 hours for 4 weeks. 3. Patient to follow gastroesophageal reflux life changes. 4. The patient will return to clinic in 3 months. The above plan was discussed with the patient and all questions answered.
[2016-09-23] MEDS ORDERED: PROTONIX IV SCH (17:34)
--- NOTE | 2016-09-23 18:29 | PROGRESS NOTE ---
DATE: 09/22/2016 SUBJECTIVE: Patient is feeling fine, resting, denies any new complaints and no signs of any further bleeding. OBJECTIVE: Vital Signs: Stable with normal temperature, pulse 74, respirations 17, blood pressure 120/50, sat is 98% on room air. General: Obese, lying in chair, in no acute distress. HEENT: No scleral icterus. Mild conjunctival pallor. Neck: Supple. Trachea midline. Heart: Normal. Abdomen: Benign. No guarding, rebound or rigidity. Extremities: No cyanosis, clubbing. Neurological: Alert and oriented. LABS: Hematocrit and hemoglobin are stable at 9.5 and 29.6. IMPRESSION AND PLAN: 1. Anemia secondary to gastrointestinal bleed from a large duodenal ulcer. This will be followed up. We will give him an iron supplement. 2. Large duodenal ulcer. Continue PPI twice daily and we will do an esophagogastroduodenoscopy in 3 months. 3. Continue to follow gastroesophageal reflux changes. 4. We will follow him with you.
[2016-09-23] MEDS ORDERED: LIPITOR PO SCH (21:00)
[2016-09-23] MEDS: SODIUM CHLORIDE 0.9% INJ SCH ×2 (21:07→21:15)
[2016-09-23] MEDS: PROTONIX IV SCH ×2 (21:07→21:16)
[2016-09-24] MEDS: CARAFATE LIQUID PO SCH (03:31)
[2016-09-24 05:43] VITALS: BP 139/53
[2016-09-24] MEDS: HUMALOG SUBQ SCH (06:50)
[2016-09-24 06:55] LABS: URINE CULTURE NEEDED? NO; URINE MICRO REVIEW NEEDED? NO; URINE SOURCE CATH
[2016-09-24 07:00] LABS: BILIRUBIN URINE NEGATIVE (NEGATIVE); BLOOD URINE TRACE (NEGATIVE); COLOR YELLOW; GLUCOSE URINE TRACE mg/dL (NEGATIVE); LEUKOCYTES URINE NEGATIVE (NEGATIVE); NITRITE URINE NEGATIVE (NEGATIVE); PH URINE 6.5; PROTEIN URINE TRACE mg/dL (NEGATIVE); SP GRAVITY URINE 1.008; TURBIDITY URINE CLEAR (CLEAR); UROBILINOGEN URINE NORMAL (NORMAL)
[2016-09-24 07:01] LABS: UR EPITHELIAL CELLS <10 /HPF (<10); URINE BACTERIA NEGATIVE /HPF; URINE RBC <10 /HPF (<10); URINE WBC <10 /HPF (<10)
--- NOTE | 2016-09-24 07:38 | DISCHARGE SUMMARY ---
ADMISSION DATE: 09/19/2016 DISCHARGE DATE: 09/24/2016 DISCHARGE DIAGNOSES: 1. Large duodenal ulcer with acute blood loss anemia secondary to bleeding peptic ulcer. 2. Hypotension, initially secondary to acute blood loss. 3. Bilateral renal calculi with bladder outlet obstruction. HOSPITAL COURSE: Mr. Kathleen is a very poor historian. He was brought into the hospital because he was very somnolent and was not able to walk. Five days prior to this admission he had lithotripsy and had right ureterovesical junction calculus. At that time he was having bladder outlet obstruction that was relieved with a Sinclair catheter. Dr. Blackmon was involved in the care of this patient during that hospital admission. He has done well but his blood pressure went down and he was very somnolent and therefore, he had to be brought into hospital. We consulted Dr. Israel who went ahead and did an EGD that found a large duodenal ulcer. It was not actively bleeding, however. He received IV pantoprazole and IV fluids. We kept him on clear liquids and held his antihypertensive medicines, along with glimepiride. His condition gradually improved and therefore, he is going to be discharged home today. He did have a Sinclair catheter on presentation. That was discontinued yesterday and had an episode of urinary obstruction that had to be relieved with a straight catheter. He again developed urinary retention for which we again catheterized him. This time, we left the Sinclair catheter. He has an appointment tomorrow with Dr. Blackmon. At that time he will be evaluated and assessed for his bladder outlet obstruction. Since patient's condition has improved he is going to be discharged home today. DISCHARGE MEDICATIONS: 1. Tamsulosin 0.4 mg orally twice daily. 2. Omeprazole 40 mg orally twice daily. 3. Sucralfate 1 g orally 4 times a day. 4. Amlodipine 10 mg orally once daily. 5. Losartan 100 mg orally once daily. 6. Fenofibrate 160 mg orally once daily. 7. Atorvastatin 40 mg orally once daily at bedtime. 8. Lyrica 50 mg orally twice daily. 9. Metformin 1000 mg orally twice daily. 10. Glyburide 1 mg orally once daily in the morning. 11. Iron carbonate/ascorbic acid 1 tablet orally twice daily. 12. Magnesium oxide 500 mg orally once daily. 13. Symbicort inhaler 160/4.5 two puffs twice daily. 14. Baclofen 10 mg orally once daily as needed, as directed. 15. Multivitamin orally once daily. FOLLOWUP: Will follow up with Dr. Blackmon tomorrow morning at 8 a.m. He will also follow up with me in approximately 1 week. We will let him follow up with Dr. Israel in approximately 3 months. CONDITION: Stable. DISPOSITION: Home. MTDD
[2016-09-24] MEDS: GLUCOPHAGE PO SCH (09:00)
[2016-09-24] MEDS: ICAR-C PO SCH (09:00)
[2016-09-24] MEDS: TRICOR PO SCH (09:00)
[2016-09-24] MEDS: THERA M PLUS PO SCH (09:00)
[2016-09-24] MEDS: COZAAR PO SCH (09:00)
[2016-09-24] MEDS: MAG-OX PO SCH (09:00)
[2016-09-24] MEDS: LYRICA PO SCH (09:00)
[2016-09-24] MEDS: NORVASC PO SCH (09:00)
[2016-09-24] MEDS: FLOMAX PO SCH (09:01)
--- NOTE | 2016-09-24 12:12 | PROGRESS NOTE ---
DATE: 09/24/2016 SUBJECTIVE: Patient is getting a straight catheterization for urinary retention. He is already on Flomax. He has a history of kidney stones, being followed by Dr. James. He denies any blood in the stools or melena. OBJECTIVE: Vital signs: Temperature 97.9 degrees, pulse rate of 75, respiratory rate of 22, blood pressure 113/53, saturating 98% on room air. General Appearance: Moderately built, moderately nourished, in bed, in no distress. HEENT: Mild pallor. No icterus. Neck: Supple. Abdomen: Obese, soft, nontender, nondistended. Bowel sounds present. No guarding. Extremities: No cyanosis, clubbing. Neurologic: He is alert, awake, and oriented. LABS: Hemoglobin and hematocrit are 9.5 and 29.6 from yesterday. Blood glucose of 139. IMPRESSION AND PLAN: 1. Anemia secondary to gastrointestinal bleeding with a large duodenal bulb ulcer. We will continue him on PPIs twice daily for 3 months. We will repeat an EGD in 3 months. He will also continue on Iron C b.i.d., MVI once daily. He will continue to follow gastroesophageal reflux lifestyle changes. 2. Urinary retention, benign prostatic hypertrophy, and kidney stones. Per the primary care team and Dr. James. [facility]
== END 2016-09-24 09:42 | disposition home or self-care (01) | DRG 378 ==
LOC: P.ED 20:16 → P.ICU 23:36 → ICU 09-20 19:31 → 3N 09-23 09:17
PROVIDERS: ADMIT Internal Medicine; ATTEND Internal Medicine
PROC: 30233N1 Transfusion of Nonautologous Red Blood Cells into Peripheral Vein, Percutaneous Approach (ICD-10-PCS; 2016-09-20)
PROC: 0DJ08ZZ Inspection of Upper Intestinal Tract, Via Natural or Artificial Opening Endoscopic (ICD-10-PCS; principal; 2016-09-21 10:10)
DX: K26.4 Chronic or unspecified duodenal ulcer with hemorrhage (principal); E44.1 Mild protein-calorie malnutrition; E11.22 Type 2 diabetes mellitus with diabetic chronic kidney disease; E11.40 Type 2 diabetes mellitus with diabetic neuropathy, unspecified; D62 Acute posthemorrhagic anemia; N39.0 Urinary tract infection, site not specified; K29.71 Gastritis, unspecified, with bleeding; I12.9 Hypertensive chronic kidney disease with stage 1 through stage 4 chronic kidney disease, or unspecified chronic kidney disease; K29.81 Duodenitis with bleeding; N40.1 Benign prostatic hyperplasia with lower urinary tract symptoms; R33.9 Retention of urine, unspecified; N18.9 Chronic kidney disease, unspecified; N20.0 Calculus of kidney; E66.9 Obesity, unspecified; H54.42 Blindness, left eye, normal vision right eye; M19.90 Unspecified osteoarthritis, unspecified site; R29.810 Facial weakness; Z86.73 Personal history of transient ischemic attack (TIA), and cerebral infarction without residual deficits; Z87.442 Personal history of urinary calculi; Z79.899 Other long term (current) drug therapy; Z79.84 Long term (current) use of oral hypoglycemic drugs; Z68.34 Body mass index [BMI] 34.0-34.9, adult
CPT/HCPCS: 71010; 74176; 80048; 80053; 81001; 82270; 82550; 82948; 83605; 83735; 84484; 85025; 85610; 85730; 86850; 86900; 86901; 86920; 87040; 87088; 93005; 96361; 96365; 96367; C9113; J0696; J1815; J2543; J7030; J7050; J7120; P9016; 94640-76; S0164

== ENCOUNTER 2016-10-01 07:37 | Day surgery (SDC) | payer OTHER ==
[2016-10-01] MEDS ORDERED: REGLAN ONE (08:22)
[2016-10-01] MEDS ORDERED: PEPCID ONE (08:22)
[2016-10-01] MEDS ORDERED: KEFZOL 2 GM/D5W 50 ML ONE (08:22)
[2016-10-01] MEDS ORDERED: LR 1,000 ML ONE ×2 (08:22→10:02)
[2016-10-01] MEDS ORDERED: FENTANYL ONE (09:52)
[2016-10-01] MEDS ORDERED: DIPRIVAN 1% ONE (09:52)
[2016-10-01] MEDS ORDERED: NS 1,000 ML ONE (09:58)
[2016-10-01] MEDS ORDERED: XYLOCAINE-MPF 2% ONE (10:01)
[2016-10-01] MEDS ORDERED: ROBINUL ONE (10:01)
[2016-10-01] MEDS ORDERED: DECADRON ONE (10:02)
[2016-10-01] MEDS: MORPHINE ONE ×8 (10:04→10:42)
--- NOTE | 2016-10-01 11:29 | OPERATIVE NOTE ---
PROCEDURE DATE: 10/01/2016 PREOPERATIVE DIAGNOSIS: Benign prostatic hypertrophy and urinary retention. POSTOPERATIVE DIAGNOSIS: Benign prostatic hypertrophy and urinary retention. PROCEDURE PERFORMED: Bipolar transurethral resection of the prostate with the loop. SURGEON: Goldy Blackmon MD INDICATIONS: This is a 71-year-old man who has had an extensive history of BPH. He was recently hospitalized with acute kidney injury and a presumably distal ureteral stone that was blocking his right kidney. It actually ended up being a bladder stone adjacent to the ureteral orifice. He underwent cystolitholapaxy and we tried to remove Sinclair catheter on several occasions but were unsuccessful to do so. He has been on Flomax. He continues to fail voiding trials. He desires surgical intervention. FINDINGS: Significant bilobar hypertrophy and adequate hemostasis at the conclusion of the case. PROCEDURE IN DETAIL: After obtaining informed consent, the patient was brought to the operating room. Preoperative antibiotics and laryngeal mask anesthesia were administered. He was placed in lithotomy position and prepped and draped in sterile fashion. A 21-Divehi rigid cystoscope was used to gain access to the bladder, which was then examined in systematic fashion. His prostatic urethra did have significant bilobar hypertrophy with obstruction. He had a few moderate trabeculations. No large diverticula, although there was a small diverticulum adjacent to the right ureteral orifice where, in the past, he had the stone. There were no stones within the bladder. I was able to visualize bilateral clear ureteral efflux. The cystoscope was removed and a 25-Divehi rigid resectoscope was introduced. The bipolar gyrus loop was used to resect the adenoma. I started at the bladder neck and resected toward the verumontanum down to the level of the capsule at 6 o'clock. Subsequent to that, the adenoma was resected in clockwise and counterclockwise positions. Prostate chips were evacuated with the Ellik. Repeat examination did not reveal any evidence of significant bleeding. The resectoscope was removed and a 20-Divehi, 3- way Coude Sinclair was introduced with return of light pink urine. He was connected to continuous bladder irrigation, extubated, and taken to the PACU for further recovery. ESTIMATED BLOOD LOSS: 30 mL. COMPLICATIONS: None. DISPOSITION: To PACU and subsequently the floor for observation with Sinclair catheter to continuous bladder irrigation.
[2016-10-01] MEDS ORDERED: LIORESAL PO PRN (12:06)
[2016-10-01] MEDS ORDERED: SODIUM CHLORIDE 0.9% INJ PRN (12:29)
[2016-10-01] MEDS ORDERED: PHENERGAN PO PRN (12:29)
[2016-10-01] MEDS ORDERED: TYLENOL PO PRN (12:29)
[2016-10-01] MEDS ORDERED: BENADRYL IV PRN (12:29)
[2016-10-01] MEDS ORDERED: MORPHINE IV PRN (12:29)
[2016-10-01] MEDS ORDERED: BENADRYL LIQUID PO PRN (12:29)
[2016-10-01] MEDS ORDERED: PHENERGAN IV PRN (12:29)
[2016-10-01] MEDS ORDERED: PHENERGAN PR PRN (12:29)
[2016-10-01] MEDS ORDERED: B & O 15A SUPP PR PRN (12:29)
[2016-10-01] MEDS ORDERED: LABETALOL IV PRN (12:29)
[2016-10-01] MEDS ORDERED: DITROPAN PO PRN (12:29)
[2016-10-01] MEDS ORDERED: ZOFRAN IV PRN (12:29)
[2016-10-01] MEDS ORDERED: NORCO-7.5 PO PRN (12:29)
[2016-10-01] MEDS: KEFZOL 2 GM/D5W 50 ML IV SCH ×3 (14:52→22:39)
[2016-10-01] MEDS: CARAFATE LIQUID PO SCH ×2 (14:52→22:38)
[2016-10-01] MEDS: NS 1,000 ML IV SCH ×2 (17:21→22:39)
[2016-10-01] MEDS: SYMBICORT 160/4.5 MICROGM INHALER INH SCH (20:00)
[2016-10-01] MEDS ORDERED: LIPITOR PO SCH (21:00)
[2016-10-01] MEDS: PERIDEX MT SCH (22:38)
[2016-10-01] MEDS: FLOMAX PO SCH (22:38)
[2016-10-01] MEDS: COLACE PO SCH (22:38)
[2016-10-01] MEDS: PRILOSEC PO SCH (22:38)
[2016-10-01] MEDS: GLUCOPHAGE PO SCH (22:38)
[2016-10-01] MEDS: LYRICA PO SCH (22:38)
[2016-10-02] MEDS: CARAFATE LIQUID PO SCH ×3 (02:48→13:17)
[2016-10-02] MEDS: KEFZOL 2 GM/D5W 50 ML IV SCH (05:11)
[2016-10-02 07:11] LABS: HEMATOCRIT 30.1 % (42.0-52.0); HEMOGLOBIN 9.4 g/dL (14.0-18.0); MCH 29.3 PG (27-31); MCHC 31.2 g/dL (33-37); MCV 93.8 FL (81-99); MPV 10.8 FL (7.4-10.4); RBC 3.21 XMIL (4.7-6.1)
[2016-10-02 07:23] LABS: AGAP 9; BUN 16 mg/dL (8-22); CALCIUM 8.4 mg/dL (8.8-10.2); CHLORIDE 102 mmol/L (98-107); COSMO 278; POTASSIUM 3.6 mmol/L (3.5-5.1); SODIUM 138 mmol/L (136-145); TCO2 27 mmol/L (25-35)
[2016-10-02] MEDS: SYMBICORT 160/4.5 MICROGM INHALER INH SCH (08:43)
[2016-10-02] MEDS: PERIDEX MT SCH (08:53)
[2016-10-02] MEDS: PRILOSEC PO SCH (08:54)
[2016-10-02] MEDS: FLOMAX PO SCH (08:54)
[2016-10-02] MEDS: GLUCOPHAGE PO SCH (08:54)
[2016-10-02] MEDS: COLACE PO SCH (08:55)
[2016-10-02] MEDS: LYRICA PO SCH (08:56)
[2016-10-02] MEDS ORDERED: MAG-OX PO SCH (09:00)
[2016-10-02] MEDS ORDERED: NORVASC PO SCH (09:00)
[2016-10-02] MEDS ORDERED: COZAAR PO SCH (09:00)
[2016-10-02] MEDS ORDERED: THERA M PLUS PO SCH (09:00)
[2016-10-02] MEDS ORDERED: AMARYL PO SCH (09:00)
[2016-10-02] MEDS ORDERED: LOFIBRA PO SCH (09:00)
[2016-10-02 16:10] VITALS: BP 136/49
== END 2016-10-02 17:18 | disposition home or self-care (01) ==
LOC: OR 07:37 → UNDOADMOB 09:53 → 4N 09:53 → UNDODISOB 10-02 17:18 → OR 10-02 17:18
PROVIDERS: ATTEND Urology
DX: N40.1 Benign prostatic hyperplasia with lower urinary tract symptoms (principal); R33.8 Other retention of urine; E11.9 Type 2 diabetes mellitus without complications; F17.210 Nicotine dependence, cigarettes, uncomplicated; E78.00 Pure hypercholesterolemia, unspecified
CPT/HCPCS: 80048; 82948; 85027; 88305; 88313; 94761; 94799; J0690; J1100; J2270; J3010; J7030; J7120; 94640-76

== ENCOUNTER 2016-11-15 15:32 | Inpatient (IN) ==
[2016-11-15 16:35] LABS: INR 1.04; PROTIME 10.9 Seconds (9.2-11.7); PTT 26.6 Seconds (22.0-36.0)
[2016-11-15 16:46] LABS: BASO% 0.2 % (0.0-0.8); EOS# 0.51 X1000 (0.0-0.7); EOS% 2.3 % (0.0-10.0); HEMATOCRIT 34.4 % (42.0-52.0); IMM GRAN# 0.13 X1000 (0.0-0.04); IMM GRAN% 0.6 % (0.0-0.5); LYMPH# 1.15 X1000 (1.2-3.4); LYMPH% 5.2 % (20.5-51.1); MANUAL DIFF NEEDED? NO; MCH 27.9 PG (27-31); MCV 87.3 FL (81-99); MONO# 1.05 X1000 (0.11-0.59); MONO% 4.7 % (1.7-9.3); MPV 10.9 FL (7.4-10.4); PLT 265 X1000 (130-400); RBC 3.94 XMIL (4.7-6.1)
[2016-11-15 16:57] LABS: AGAP 15; ALBUMIN 3.2 g/dL (3.5-5.0); ALKALINE PHOSPHATASE 95 U/L (32-122); BUN 24 mg/dL (8-22); CHLORIDE 100 mmol/L (98-107); CK PROFILE 17 U/L (24-204); COSMO 279; GOT 31 U/L (10-34); GPT 36 U/L (10-44); MAGNESIUM 1.8 mg/dL (1.5-2.7); POTASSIUM 4.6 mmol/L (3.5-5.1); SODIUM 137 mmol/L (136-145); TCO2 22 mmol/L (25-35); TOTAL BILIRUBIN 0.37 mg/dL (0.20-1.00); TOTAL PROTEIN 6.2 g/dL (6.3-8.3)
[2016-11-15 16:58] LABS: CALCIUM 13.2 mg/dL (8.8-10.2)
[2016-11-15] MEDS ORDERED: NS 1,000 ML IV ONE (17:17)
--- NOTE | 2016-11-15 17:17 | PROVIDER DOCUMENTATION ---
This chart was entered by Antonieta Manuel Scribe, acting as scribe for Filemon Dahl MD. HPI-General Adult - General Chief Complaint: General Adult Stated Complaint: GENERALIZED WEAKNESS X 2 DAYS Time Seen by Provider: 11/15/16 15:54 Source: patient Allergies/Adverse Reactions: Patient Allergies Allergy/AdvReac Type Severity Reaction Status Date / Time No Known Allergies Allergy Verified 10/01/16 08:26 Home Medications: Home Medication List Medication Instructions Recorded Confirmed Last Taken Type ATORVAstatin [Lipitor] 40 mg PO QHS 09/08/16 11/15/16 11/15/16 History Amlodipine [Norvasc] 10 mg PO DAILY 09/08/16 11/15/16 11/15/16 History Budesonide/Formoterol Fumarate 10.2 gm IH BID 09/08/16 11/15/16 11/15/16 History [Symbicort 160-4.5 Mcg Inhaler] Fenofibrate [Lofibra] 160 mg PO DAILY 09/08/16 11/15/16 11/15/16 History Glimepiride [Amaryl] 1 mg PO QAM 09/08/16 11/15/16 11/15/16 History Losartan Potassium 100 mg PO DAILY 09/08/16 11/15/16 11/15/16 History Magnesium Oxide [Magnesium] 500 mg PO DAILY 09/08/16 11/15/16 11/15/16 History Metformin HCl [Glumetza] 1,000 mg PO BID 09/08/16 11/15/16 11/15/16 History Multivitamin [Men's Multi-Vitamin] 1 each PO DAILY 09/08/16 11/15/16 11/15/16 History Pregabalin [Lyrica] 50 mg PO BID 09/08/16 11/15/16 11/15/16 History Baclofen 10 mg PO DAILY PRN PRN #0 09/17/16 11/15/16 11/15/16 Rx Iron Carbonyl/Ascorbic Acid 1 each PO BID #60 tablet 09/24/16 11/15/16 11/15/16 Rx [Icar-C] Omeprazole 40 mg PO BID #60 capsule. 09/24/16 11/15/16 11/15/16 Rx Sucralfate [Carafate Liquid] 1 gm PO Q6HR #120 udc 09/24/16 11/15/16 11/15/16 Rx Tamsulosin [Flomax] 0.4 mg PO BID #60 capsule 09/24/16 11/15/16 11/15/16 Rx - History of Present Illness -Gen Adult Nature of Presenting Problems: Pt is 71 y/o M presents to the ED with generalized weakness. Pt states symptom has been present for 3 days. Pt states having trouble walking. Pt states deformities to extremities due to defect. Pt denies F Location of Pain/Injury: reports: generalized Pain Radiation: reports: no radiation Quality of Pain: reports: aching Severity: reports: mild Onset/Duration: reports: 3 days ago Timing: reports: still present, intermittent Context/Activities at Onset: reports: light activity Modifying Factors: improves with: nothing Associated Symptoms: reports: weakness, trouble walking. denies: anxiety, arm pain, back/neck pain, chest pain, constipation, cough, diaphoresis, diarrhea, dizziness, EENT symptoms, fatigue, fever/chills, genitourinary problems, headaches, heartburn, joint pain, loss of appetite, malaise, muscle aches, sinus congestion/drainage, nausea, rash, seizure, shortness of breath, sensory/ motor loss, pain with inspiration, swelling/mass in abdomen, syncope, vomiting Similar Symptoms Previously?: Yes Recently seen or treated by another doctor?: No Review of Systems - Adult - REVIEW OF SYSTEMS - ADULT Constitutional: reports: no symptoms reported Eyes: reports: no symptoms reported Ears, Nose, Mouth & Throat: reports: no symptoms reported Cardiovascular: reports: no symptoms reported Respiratory: reports: no symptoms reported Gastrointestinal: reports: no symptoms reported Genitourinary: reports: no symptoms reported Musculoskeletal: reports: muscle weakness. denies: bone pain, joint pain, muscle aches, neck pain Integumentary: reports: no symptoms reported Neurological: reports: no symptoms reported Psychiatric: reports: no symptoms reported Endocrine: reports: no symptoms reported Hematologic/Lymphatic: reports: no symptoms reported Allergic/Immunologic: reports: no symptoms reported All Other Systems: Reviewed and Negative Past History - Adult - PAST MEDICAL HISTORY-ADULT Review of Records: reports: Nursing Assessment Review, Medications Reviewed, Social history reviewed & non-contributory. Major Childhood Illnesses: reports: denies history Cardiovascular: reports: HTN Respiratory: reports: COPD, sleep apnea Gastrointestinal: reports: denies history Obstetrical/Gynecological: reports: denies history Genitourinary: reports: denies history Musculoskeletal: reports: arthritis Neurological: reports: CVA, TIA Endocrine/Immune: reports: Diabetes Other Conditions: reports: denies history - PRIOR SURGERIES/PROCEDURES Surgical/Procedure History: reports: reviewed, not pertinent - IMMUNIZATION STATUS Childhood Immunizations: See Nurse Assessment Flu Vaccine: See Nurse Assessment - FAMILY HISTORY Family History: reviewed, not pertinent - SOCIAL HISTORY Smoking: cigarettes, greater than 1 pack/day Provider spent 3-5 mins advising pt. on dangers of tobacco.: Discussed manners to quit use, and f/u contacts for add'l counseling. Substance Use: denies Living Situation: family Physical Exam-General - PHYSICAL EXAM-ADULT Initial Vital Signs Reviewed: Yes - CONSTITUTIONAL General Appearance: appears well, alert, no apparent distress - EYES Eyes: PERRL/EOMI, pink conjunctivae - HEAD, EARS, NOSE, MOUTH & THROAT HENMT: normocephalic/atraumatic, moist mucous membranes, normal ENT inspection, TMs normal, pharynx normal - NECK Neck: non-tender, full range of motion, supple, normal inspection - RESPIRATORY Respiratory: chest non-tender, normal breath sounds, no pleuratic chest pain, no respiratory distress, no accessory muscle use, rales (L lower lung), increased rate - CARDIOVASCULAR Cardiovascular: normal peripheral pulses, regular rate, rhythm, no edema, no gallop, no JVD, no murmur - GASTROINTESTINAL (ABDOMEN) Abdominal Exam: normal bowel sounds, non tender, soft, no organomegaly, no pulsatile mass - LYMPHATIC Lymphatic: no adenopathy - MUSCULOSKELETAL Back Exam: normal inspection, no CVA tenderness, no vertebral tenderness Extremity: normal range of motion, non-tender, deformity (to bilateral arms and R leg due to defect) - SKIN Integumentary: normal color, normal turgor, warm/dry - NEUROLOGIC Neurologic: grossly normal, facial droop (L side due to defect) - PSYCHIATRIC Psych/Mental Status: normal mood/affect, oriented x 3 Progress - PLAN OF CARE/RESULTS Progress/Plan/Lab Results: Vital Signs - 8 hr 11/15/16 15:40 Temperature 97.8 F Pulse Rate 87 Respiratory Rate 23 Blood Pressure 142/60 O2 Sat by Pulse Oximetry 93 L Orders Category Date Time Status EKG [EKG] Stat Ther 11/15/16 15:39 Ordered Result Diagrams: 11/15/16 16:02 11/15/16 16:02 - EKG 1 Time of EKG reading by physician:: 15:46 EKG Read and Signed by:: Filemon Dahl EKG Interpretation (*Must complete 3 of following elements*): Abnormal Rate: 82 Rhythm: normal sinus rhythm Comments: nonspecific T wave abnormality - CONSULTS/PCP/HOSPITALIST Notification #1 *Consult/PCP/Hospitalist*: Dr. Serrano Time Discussed: 17:08 Reason/Comments: Dr. Dahl consulted with Dr. Serrano about admit of PT Consult Disposition: Admit Departure - Departure Time of Disposition Decision: 17:08 DIAGNOSIS: Hypercalcemia, Volume depletion Disposition: ADMITTED INPATIENT 09 Certified Medical Emergency: Emergent Condition: Stable Additional Freetext Instructions: ED Follow Up Instructions: You have been treated by a care provider in the Emergency Department. These instructions are being provided to you so you can have an understanding of how to care for yourself upon discharge. Upon discharge from the Emergency Department, you are responsible for making arrangements for follow-up care by a physician of your choice. Take all prescribed medications as directed. Return to the Emergency Department immediately for any new or worsening symptoms. You may call the Physician Referral phone number at [phone] to obtain a list of Physicians who are taking new patients. Referrals and Follow-Ups: Mejia Rey MD [Primary Care Provider] - Attestation - Physician/ CIRILO Attestation Patient care was provided by Advanced Practice Provider:: Yes Advanced Practice Provider documentation review:: The Mid-level provider documentation, treatment plan and medical decision making was reviewed by the physician who agrees with all treatment and medical decision making by the MLP. The physician spent face to face time with patient:: Yes Advanced Practice Provider documentation review:: The physician spent face to face time with this patient and agrees with all MLP documentation, treatment, and medical decision making by the MLP. See provider notes for further information. This chart was documented by the indicated scribe, (Antonieta Manuel Scribe) and accurately reflects the services I performed and decisions made by Nabila collins Christophe I, MD, as attested by the provider's signature.
--- NOTE | 2016-11-15 17:34 | Diag Imaging Result Document ---
PROCEDURE NAME: CHEST-1 VIEW - 11/15/2016 CHEST, SINGLE VIEW: FINDINGS: Compared to 09/19/2016. The lungs are well expanded. The heart is not enlarged. The vessels are not distended. No pneumonia. No pleural effusions. IMPRESSION: Negative chest.
[2016-11-15 18:01] LABS: URINE SOURCE VOIDED
[2016-11-15 18:04] LABS: BILIRUBIN URINE NEGATIVE (NEGATIVE); BLOOD URINE SMALL (NEGATIVE); COLOR YELLOW; GLUCOSE URINE NEGATIVE (NEGATIVE); LEUKOCYTES URINE LARGE (NEGATIVE); NITRITE URINE NEGATIVE (NEGATIVE); PH URINE 5.5; PROTEIN URINE 100 mg/dL (NEGATIVE); SP GRAVITY URINE 1.019; TURBIDITY URINE TURBID (CLEAR); UROBILINOGEN URINE NORMAL (NORMAL)
[2016-11-15 18:13] LABS: URINE MICRO REVIEW NEEDED? YES
[2016-11-15 18:16] LABS: MAGNESIUM 1.8 mg/dL (1.5-2.7)
[2016-11-15 18:21] LABS: UR EPITHELIAL CELLS <10 /HPF (<10); URINE BACTERIA 1+ /HPF; URINE RBC <10 /HPF (<10); URINE WBC TNTC /HPF (<10)
[2016-11-15 18:23] LABS: URINE CASTS NONE SEEN; URINE CRYSTALS CA OXALATE PRESENT; URINE SMALL ROUND CELLS NONE SEEN
[2016-11-15] MEDS: LOVENOX SUBQ SCH (18:45)
[2016-11-15] MEDS ORDERED: MIACALCIN SUBQ ONE (18:51)
--- NOTE | 2016-11-15 19:05 | Diag Imaging Result Document ---
PROCEDURE NAME: CT THORAX W/CONTRAST - 11/15/2016 CT CHEST WITH INTRAVENOUS CONTRAST: FINDINGS: Dose reduction protocol. No pleural effusions. No cardiomegaly. Moderate atherosclerosis. There are calcified mediastinal and right hilar lymph nodes with scattered calcified granuloma. No consolidation. No bronchiectasis. No infiltrates. Limited images through the upper abdomen reveal a small to moderate amount of fluid about the liver and spleen. There are inflammatory changes about the pancreas with a heterogeneous mass or pseudocyst measuring at least 6.5 cm. There is a large cyst adjacent to the right lobe of the liver measuring 6.9 cm. This could be arising from the liver. Multiple scattered small hypodense liver lesions. The left adrenal is enlarged with a nodule measuring at least 3.8cm. IMPRESSION: 1. No pneumonia although there is evidence of a prior granulomatous infection. 2. Pancreatitis versus pancreatic mass with abdominal ascites. 3. Multiple nonspecific small hypodense hepatic lesions which could be metastases. 4. Enlarged left adrenal gland measuring 3.8 cm. A preliminary report was given at 6:43 PM. MTDD
[2016-11-15] MEDS ORDERED: AREDIA IV ONE (20:00)
[2016-11-15] MEDS ORDERED: NS IV ONE (20:00)
[2016-11-15] MEDS: NS 1,000 ML IV SCH (20:08)
[2016-11-15] MEDS: PRILOSEC PO SCH (20:54)
[2016-11-15] MEDS: LIPITOR PO SCH (20:54)
[2016-11-15] MEDS: LYRICA PO SCH (20:54)
[2016-11-15] MEDS: CARAFATE LIQUID PO SCH (20:54)
[2016-11-15] MEDS: ICAR-C PO SCH (20:55)
[2016-11-15] MEDS: FLOMAX PO SCH (20:55)
[2016-11-15] MEDS: DUONEB (A & A) INH PRN (20:57)
[2016-11-15] MEDS: SYMBICORT 160/4.5 MICROGM INHALER INH SCH (20:58)
--- NOTE | 2016-11-15 23:32 | HISTORY AND PHYSICAL ---
This admission for a covering for Dr. Rey. PRIMARY CARE PHYSICIAN: Dr. Rey. PRESENTING COMPLAINT: Generalized weakness and cough. HISTORY OF PRESENTING COMPLAINT: Mr. 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 The patient presented because for the past 3-4 days he has been excessively weak, and has not been able to get out of bed, even with the assistance with family members. According to the , the patient has also been coughing, but not been bringing up any sputum. No fever, no chills, and no diarrhea. Patient is usually constipated. Patient presented to the emergency department, was evaluated. Initial saturation was about 93% on room air. Lab work did show that the patient's WBC is 22.25, which is high, for which I was asked to evaluate the patient for admission. PAST MEDICAL HISTORY: 1. Diabetes mellitus. 2. 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 3. History of cerebrovascular accident. 4. Dyslipidemia. 5. Hypertension. 6. Diabetes type 2. PAST SURGICAL HISTORY: 1. Left cheek cancer resection. 2. Recent laser cystolitholapaxy by Dr. Blackmon on 09/15/2016. FAMILY HISTORY: Nonsignificant. ALLERGIES: None. SOCIAL HISTORY: Patient smokes more than 2 packs of cigarettes per day. According to him, he has cut down for the past 1 or 2 months, but he smoked 2 packs of cigarettes for over 20 years. MEDICATIONS: Current medication list has been reviewed. REVIEW OF SYSTEMS: A 14-point review of systems conducted with the patient. He denies any other complaint, except what we have in the HPI. PHYSICAL EXAMINATION: VITAL SIGNS: Blood pressure is 133/65, pulse 84, respirations 21, temperature 98 degrees. GENERAL: Mr. Kathelen is a 71-year-old male. He is in bed. He does not seem to be in any distress. HEENT: Mucosa is pink and moist. Anicteric. Acyanotic. NECK: Supple. There is no JVD, no carotid bruit. CHEST: Good air entry bilateral. There are a few bibasilar crepitations, and there is a prolonged expiratory phase of respiration. I did not appreciate any rhonchi or any wheezing. However, the patient did seem like he is retaining air. ABDOMEN: Distended, nontender. Bowel sounds are present. There is no hepatosplenomegaly. CARDIOVASCULAR: Regular rate and rhythm. No murmurs, no rubs, no gallops. EXTREMITIES: Maybe 1+ pedal edema bilateral. 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 The left shows congenital malformation of the digits. The same applies to the hands. CENTRAL NERVOUS SYSTEM: Patient is alert, is oriented x4. 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 The rest of the neurological exam is unremarkable. LABORATORY DATA: WBC is 22.26, hemoglobin is 11.40 platelet count of 265,000. Chemistry: Sodium is 127, potassium is 4.6, chloride is 100, bicarbonate is 22, creatinine is 1.1. Calcium is 13.2. Chest x-ray done today shows heart is not enlarged. No pneumonia, no pleural effusions. ASSESSMENT: Mr. Kathleen is a 71-year-old male with multiple comorbidities, who presented due to generalized weakness, cough. Chest x-ray is unremarkable. However, the patient has a remarkable WBC and elevated calcium. 1. Generalized weakness. Etiology could be multifactorial, including hypercalcemia, as well as clinical dehydration. We are going to address these. 2. Leukocytosis. I think there must be an underlying infection. We will do blood cultures. I will do a CT scan of the lungs to get a better view of the lung anatomy, and will also do urine cultures, and put the patient on broad-spectrum antibiotics while we are awaiting the culture results. 3. Cough. In the context of the patient having a significant smoking history, and the chest exams in which it seems the patient is retaining air, and the fact that he was slightly hypoxemic on presentation, points to the fact that he probably has mild chronic obstructive pulmonary disease which has not been diagnosed, and is currently in exacerbation, or he probably has an underlying atypical pneumonia. Will get a CT scan of the lungs to have a better idea of what is going on. 4. Hypercalcemia. Patient's calcium is 13.2. This is the highest it has puga for him. I think part of it could be just dehydration. However, we will do a PTH to see if it is PTH-related or not, and then do other investigations as we deem pertinent. For now, we will aggressively hydrate the patient. We will put a Sinclair catheter and monitor strict I's and O's. 5. Diabetes mellitus. We will control this with insulin regimen while the patient is in the hospital. 6. Hypertension. 7. History of congenital malformation noted. In general, Mr. Kathleen is going to be admitted to the medical floor with telemetry monitoring. We are going to aggressively hydrate. We will do the workup for the hypercalcemia and repeat his labs for tomorrow. If it is PTH-related, then we will go ahead and do a nuclear scan for the parathyroid. If it is not PTH-related, then we will figure out if this is a malignant or a paraneoplastic manifestation of an underlying or occult malignancy. We will start the patient on broad-spectrum antibiotics and continue the hydration. We will give further recommendations during the hospital course. cc: Lion Serrano MD
[2016-11-16] MEDS: ZOSYN 3.375 GM/NS 3.375 GM/50 ML IVPB IV SCH ×4 (00:52→18:51)
[2016-11-16] MEDS: CARAFATE LIQUID PO SCH ×4 (03:12→22:07)
--- NOTE | 2016-11-16 05:39 | EKG Report ---
Test Performed on : 11/15/2016 3:46:45 PM Test Reason : WEAKNESS Blood Pressure : / mmHG Vent. Rate : 082 BPM Atrial Rate : 082 BPM P-R Int : 162 ms QRS Dur : 096 ms QT Int : 348 ms P-R-T Axes : 053 008 091 degrees QTc Int : 406 ms Normal sinus rhythm. Nonspecific T wave abnormality Abnormal ECG When compared with ECG of 19-SEP-2016 20:48, premature atrial complexes. are no longer present Unconfirmed Result
[2016-11-16] MEDS: NS 1,000 ML IV SCH ×3 (06:08→22:07)
[2016-11-16 07:17] LABS: INR 1.04
[2016-11-16 07:43] LABS: BASO% 0.2 % (0.0-0.8); EOS# 0.56 X1000 (0.0-0.7); EOS% 3.1 % (0.0-10.0); HEMATOCRIT 33.2 % (42.0-52.0); HEMOGLOBIN 10.6 g/dL (14.0-18.0); IMM GRAN# 0.11 X1000 (0.0-0.04); IMM GRAN% 0.6 % (0.0-0.5); LYMPH# 1.08 X1000 (1.2-3.4); MANUAL DIFF NEEDED? YES; MCH 28.2 PG (27-31); MCHC 31.9 g/dL (33-37); MCV 88.3 FL (81-99); MONO# 0.85 X1000 (0.11-0.59); MONO% 4.7 % (1.7-9.3); MPV 11.5 FL (7.4-10.4); NEUT% 85.4 % (42.2-75.2); PLT 231 X1000 (130-400); RBC 3.76 XMIL (4.7-6.1)
[2016-11-16 07:47] LABS: AGAP 12; ALBUMIN 2.8 g/dL (3.5-5.0); ALKALINE PHOSPHATASE 84 U/L (32-122); BUN 17 mg/dL (8-22); CALCIUM 11.3 mg/dL (8.8-10.2); CHLORIDE 104 mmol/L (98-107); COSMO 280; GOT 28 U/L (10-34); GPT 30 U/L (10-44); POTASSIUM 4.1 mmol/L (3.5-5.1); SODIUM 139 mmol/L (136-145); TCO2 23 mmol/L (25-35); TOTAL BILIRUBIN 0.28 mg/dL (0.20-1.00); TOTAL PROTEIN 5.8 g/dL (6.3-8.3)
[2016-11-16 07:58] LABS: BANDS 2 % (0-1); LYMPHS 4 % (21-51)
[2016-11-16] MEDS: SYMBICORT 160/4.5 MICROGM INHALER INH SCH ×2 (08:25→19:05)
[2016-11-16] MEDS: DUONEB (A & A) INH PRN ×4 (08:25→19:05)
[2016-11-16] MEDS ORDERED: MIACALCIN SUBQ ONE (08:42)
[2016-11-16] MEDS: MAG-OX PO SCH (11:17)
[2016-11-16] MEDS: FLOMAX PO SCH ×2 (11:17→22:07)
[2016-11-16] MEDS: ICAR-C PO SCH ×2 (11:17→22:08)
[2016-11-16] MEDS: PRILOSEC PO SCH ×2 (11:17→22:07)
[2016-11-16] MEDS: LYRICA PO SCH (11:17)
[2016-11-16] MEDS: COZAAR PO SCH (11:18)
--- NOTE | 2016-11-16 12:20 | Diag Imaging Result Document ---
PROCEDURE NAME: ABDOMEN/PELVIS W/CONTRAST - 11/16/2016 CT ABDOMEN PELVIS WITH INTRAVENOUS CONTRAST, 11/16/2016: A CT dose reduction protocol was used. COMPARISON: 09/19/2016. FINDINGS: There is a large mass involving the pancreatic head and the posterior surface of the left lobe of the liver. This enhances heterogeneously. This probably also invades the posterior wall of the stomach. Maximally this measures about 5.8 x 9.5 cm in AP and lateral dimensions. There is severe atrophy of the pancreatic tail with dilation of the main pancreatic duct. There are numerous small ill-defined liver lesions compatible with metastases. At the caudate lobe of the liver, there is a cystic area measuring about 7 x 6 cm in AP and lateral dimensions. The splenic vein is severely narrowed but not completely occluded by the large pancreatic mass. There is a large left adrenal nodule that is very stable from 09/19/2016. There is a small amount of ascites. Stable bilateral renal cysts. Stable nonobstructing renal stones bilaterally. There are 2, large obstructing stones at the left UVJ. These measure up to 11 mm. There is moderate left hydronephrosis. No right-sided obstruction. Sinclair catheter in the urinary bladder. Urinary bladder is collapsed. Rectum is normal. There are extensive degenerative changes of the spine. No acute bony lesions. IMPRESSION: 1. Large mass centered at the head of the pancreas invading all the surrounding organs compatible with advanced primary pancreatic cancer. 2. Numerous liver metastases. 3. Ascites. 4. Large, left obstructing UVJ stones with moderate left hydronephrosis. MTDD
--- NOTE | 2016-11-16 14:46 | Diag Imaging Result Document ---
PROCEDURE NAME: RENAL STONE SEARCH - 11/16/2016 COMPARISON: CT from earlier 11/16/2016. A CT dose reduction protocol was used. FINDINGS: Prone CT was performed. There are still 2 large obstructing stones in the left UVJ. These cause moderate left hydronephrosis. IMPRESSION: Obstructing left UVJ stones. MTDD
--- NOTE | 2016-11-16 15:07 | Diag Imaging Result Document ---
PROCEDURE NAME: CT GUIDED BX PANCREAS - 11/16/2016 CT-GUIDED PANCREAS BIOPSY: COMPARISON: CT from earlier 11/16/2016. FINDINGS: The risks and benefits of the procedure were discussed with the patient. All questions were answered. Written and verbal informed consent was obtained. Overlying skin was prepped and draped in sterile fashion. Anesthesia was achieved with injection of 8 mL of 1% lidocaine. Using intermittent CT guidance, the 10/15 cm 17/18 gauge needle set was advanced into the large pancreatic mass and about 10 biopsy specimens were obtained. The needles were withdrawn intact. The patient reported no symptoms from the procedure. IMPRESSION: Successful and uncomplicated CT-guided pancreas biopsy.
[2016-11-16 15:39] LABS: IRON SATURATION 7 %; TIBC 229 ug/dL; TOTAL IRON 17 ug/dL (53-167); UNBOUND IRON 212 ug/dL (112-346)
[2016-11-16] MEDS: LOVENOX SUBQ SCH (17:36)
--- NOTE | 2016-11-16 18:04 | PROGRESS NOTE ---
DATE: 11/16/2016 SUBJECTIVE: Today, Mr. Kathleen referred to be doing relatively fine. Denies any complaints. Still has some generalized weakness but otherwise nothing significant. OBJECTIVE: Vital signs: Blood pressure is 128/78, pulse 84, respirations 18, temperature 97.6 degrees. General: In general, Mr. Kathleen is a 71-year-old male. He is in bed, not seemingly distressed. HEENT: Mucosa is pink and moist. Anicteric. Acyanotic. Neck: Supple. Chest: Good air entry bilateral. No crepitations. No rhonchi. Cardiovascular : Regular rate and rhythm. Abdomen: Soft, mildly distended but nontender. Extremities: 1+ pedal edema. The right lower extremity has transmetatarsal amputation. There is some congenital deformities of all other extremities. LABORATORY DATA: WBC is down to 18.00, hemoglobin is 10.6, platelet count of 231,000. Chemistry is reviewed. Completely unremarkable except for a calcium of 11.3. PTH intact was 5.1, which is low. A CT scan of the abdomen showed a large mass centered at the head of the pancreas invading other surrounding organs compatible with advanced primary pancreatic cancer. Numerous liver metastases, ascites. There is also a large left obstructing UVJ stone with moderate left hydronephrosis. ASSESSMENT: 1. Generalized weakness likely due to underlying malignancy. 2. Malignant hypercalcemia. This is improving. Patient has been given calcitonin and pamidronate. We will recheck the calcium later on today. Of note, PTH is remarkably low so this is not PTH dependent. PTH related peptide has been sent out. I think this is a paraneoplastic manifestation of the pancreatic disease. 3. Pancreatic mass suspicious for malignancy with metastasis to the neighboring organs. Patient has been evaluated by Hematology/Oncology and a fine needle aspiration has been done CT guided by Radiology, so will be pending on the pathology report. 4. Left hydronephrosis with obstructive stone in the ureterovesical junction. We consulted Urology (Dr. Blackmon). We will continue the patient on IV antibiotics. I think that is the source of the leukocytosis. We did a urine culture and blood cultures. Blood cultures have been so far negative. A urine culture is now gram positive cocci and we are pending the ID and sensitivity. For now, we will continue with the Zosyn. The patient has been afebrile. 5. History of congenital limb deformity from thalidomide noted. 6. Hypertension/diabetes. We will control all of these comorbidities. 7. Iron deficiency anemia. This was the worked up by Hematology/Oncology. We would defer further recommendations to them. cc: Lion Serrano MD MTDD
--- NOTE | 2016-11-16 21:25 | CONSULTATION ---
DATE OF CONSULTATION: 11/16/2016 ADMITTING PHYSICIAN: Lion Serrano MD PRIMARY CARE PHYSICIAN: Mejia Rey MD We appreciate this consult. CHIEF COMPLAINT: Malignant hypercalcemia and pancreatic mass. HISTORY OF PRESENT ILLNESS: Mr. 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 The patient presented to [facility] Emergency Department secondary to 3-4 days of excessive weakness to the point of not being able to get out of bed. According to the patient's , the patient had also had a cough nonproductive of sputum. The patient denied any fever or chills. He denies any weight loss. Upon presentation to [facility], the patient's initial saturation was 93% on room air with a white blood cell count of 22.25. The patient was admitted for evaluation. The patient did ultimately undergo CT of the chest which revealed no pneumonia, but identified a pancreatic mass versus pancreatitis with large volume ascites. Additionally, the patient was found to have multiple hepatic lesions questionably related to metastasis as well as an enlarged left adrenal gland at 3.8 cm. We are asked to evaluate the patient secondary to pancreatic mass. PAST MEDICAL HISTORY: 1. Diabetes mellitus type 2. 2. 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 3. History of stroke. 4. Dyslipidemia. 5. Hypertension. PAST SURGICAL HISTORY: 1. Left cheek cancer resection. 2. Recent laser cystolitholapaxy by Dr. Blackmon on 09/15/16. SOCIAL HISTORY: The patient smokes 1 pack cigarettes daily. He does not use alcohol or illicit drugs. FAMILY HISTORY: Negative for any oncologic or hematologic problem. MEDICATIONS ON ADMISSION: Current medication list is being reconciled at this time. ALLERGIES: None. REVIEW OF SYSTEMS: A 14 point review of systems has been obtained and is negative except as mentioned in HPI. PHYSICAL EXAMINATION: General: Mr. Kathleen is a 71-year-old, male, well developed, well nourished, lying supine in bed in no apparent distress. Vital Signs: Temperature 97.6, blood pressure 123/52, heart rate 74, respirations are 16, O2 saturation is 97% on room air. HEENT: Normocephalic, atraumatic. Mucous membranes are pink and moist. Sclerae is anicteric. Extraocular movements intact. Neck: Supple. Lungs: Clear to auscultation bilaterally. Chest expansion is equal bilaterally. CARDIOVASCULAR: S1, S2 is heard without murmur, rub or gallop. Abdomen: Soft, with large volume ascites and tender to palpation in upper quadrants. No rebound or guarding is noted. Extremities: Without clubbing, cyanosis, or edema. Dermatologic: No rashes, bruises or lesions. Neurologic: The patient is awake, alert, and oriented x4. He has no focal deficit at this time. LABORATORY DATA: Hemoglobin 10.6, hematocrit 33.2, white blood cell count is 18.08, platelets 231,000, ANC 15.37, INR is 1.04, sodium 139, potassium 4.1, chloride 104, CO2 is 23, BUN 17, creatinine 0.9, and glucose is 110. Calcium is 11.3, bilirubin 0.28, alkaline phosphatase 84, AST is 28, ALT is 30. Urinalysis reveals gram-positive cocci. IMAGING STUDIES: Chest x-ray is negative for any acute pathology. CT of the chest reveals no pneumonia, positive pancreatic mass versus pancreatitis with ascites as well as multiple hepatic lesions questionably related to metastasis and an enlarged left adrenal gland at 3.8 cm. ASSESSMENT AND PLAN: 1. Pancreatic mass of questionable etiology. We will order CT-guided biopsy as well as bone scan and CT of the abdomen and pelvis. Additionally, we will add CA-19-9 to assess the patient for primary pancreatic cancer. 2. Hypercalcemia with a calcium of 11.8. The patient is currently on Miacalcin and pamidronate. We agree with these medications. 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 3. Leukocytosis, secondary to #4. We agree with antibiotics as ordered at this time. 4. Urinary tract infection. Currently on Zosyn. We agree with antibiotics. 5. Cough probably secondary to COPD which is improved at this time. 6. Diabetes mellitus type 2. Currently on insulin. 7. History of congenital malformation, noted. 8. We will follow and make recommendations pending outcomes. The above reflects the history, examination, assessment and plan of Dr. Yadav. Dictated by RACHEL Dueñas for Parviz Yadav MD cc: RACHEL Dueñas MD Adnan A. Seljuki, MD Raphael K. Quansah, MD
[2016-11-16] MEDS: LIPITOR PO SCH (22:08)
[2016-11-17] MEDS: LYRICA PO SCH ×3 (01:50→23:08)
[2016-11-17] MEDS: ZOSYN 3.375 GM/NS 3.375 GM/50 ML IVPB IV SCH ×4 (01:50→23:05)
[2016-11-17] MEDS: CARAFATE LIQUID PO SCH ×4 (01:56→23:08)
[2016-11-17] MEDS: NS 1,000 ML IV SCH ×2 (06:12→15:29)
[2016-11-17] MEDS: DUONEB (A & A) INH PRN ×3 (08:28→19:45)
[2016-11-17] MEDS: SYMBICORT 160/4.5 MICROGM INHALER INH SCH ×2 (08:30→19:45)
[2016-11-17] MEDS: COZAAR PO SCH (10:05)
[2016-11-17] MEDS: PRILOSEC PO SCH ×2 (10:05→23:08)
[2016-11-17] MEDS: ICAR-C PO SCH ×2 (10:05→23:08)
[2016-11-17] MEDS: MAG-OX PO SCH (10:05)
[2016-11-17] MEDS: FLOMAX PO SCH ×2 (10:05→23:08)
[2016-11-17] MEDS: TOBRADEX OPH SUSP LEFT EYE SCH ×3 (12:14→23:04)
[2016-11-17] MEDS: [UNRECOGNIZED DRUG - OTHER] LEFT EYE SCH ×2 (12:14→23:04)
[2016-11-17 13:36] LABS: AGAP 12; BUN 13 mg/dL (8-22); CALCIUM 10.8 mg/dL (8.8-10.2); CHLORIDE 103 mmol/L (98-107); COSMO 277; SODIUM 137 mmol/L (136-145); TCO2 22 mmol/L (25-35)
--- NOTE | 2016-11-17 14:21 | PROGRESS NOTE ---
DATE: 11/17/2016 Today Mr. Kathleen referred to be doing fine. He does not really complain of anything acutely. OBJECTIVE: Vital signs: Blood pressure is 121/64, pulse of 73, respirations 20, temperature 97.4 degrees. General: Mr. Kathleen is a 71-year-old male. He is in bed, no cardiopulmonary distress. HEENT: Mucosa is pink and moist. Anicteric. Acyanotic. 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 Chest: Good air entry bilateral. There is a mild bilateral wheezing. Cardiovascular: Regular rate and rhythm. No murmurs, no rubs. No gallops. Abdomen: Distended. Nontender. Bowel sounds are slightly hypoactive. Extremities: No pedal edema. 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 Follows commands. Extremities: With multiple congenital abnormalities. LABORATORY DATA: None for today. A CA-19-9 came back normal. ASSESSMENT: 1. Generalized weakness likely due to underlying malignancy. 2. Malignant hypercalcemia. This is improving. We will recheck on a calcium level for this afternoon and adjust the fluids. 3. Pancreatic mass suspicious for malignancy with metastasis to the neighboring organs. The patient already had FNA. We will be waiting on the results. 4. Complicated UTI with left hydronephrosis associated with stone in the UV junction. Urology has been consulted. 5. Enterococcal faecalis urinary tract infection. We will continue with the current antibiotics. This can be changed to p.o. when patient becomes more stabilized. 6. Iron deficiency anemia. This is noted. Hem/Onc is on board. 7. History of congenital limb deformity. cc: Lion Serrano MD
--- NOTE | 2016-11-17 14:24 | CONSULTATION ---
DATE OF CONSULTATION: 11/17/2016 CONSULTING PHYSICIAN: Dr. Serrano. REASON FOR CONSULTATION: Left ureteral stones, hydronephrosis. HISTORY OF PRESENT ILLNESS: A 71-year-old male, who is known to me secondary to a history of BPH with urinary retention, bilateral nephrolithiasis, ureterolithiasis, bladder stones. Most recently he underwent Holmium laser cystolitholapaxy on 09/15/2016. He presented with presumed large distal ureteral stone and acute kidney injury with a plan for right ureteroscopy, but during cystoscopy it was found that he actually had large stone in the diverticulum just adjacent to the ureteral orifice, which was likely causing compression. He did well after surgery. Currently, his retention is managed with indwelling Sinclair catheter. He presented to the hospital on 11/15/2016 with generalized weakness. There was a report of cough. He was found to have leukocytosis. He subsequently underwent imaging with CT of abdomen and pelvis on 11/16/2016, which revealed a 10 cm pancreatic mass with multiple liver lesions concerning for metastases and ascites. In addition, he had 2 large distal ureteral stones that measured up to 11 mm. He currently denies significant left flank pain. He reports overall feeling bad. He denies nausea and vomiting. PAST MEDICAL HISTORY: Diabetes mellitus, CVA, hypertension, hyperlipidemia. PAST SURGICAL HISTORY: 1. Left cheek cancer excision. 2. Bipolar TURP. 3. Ureteroscopy with laser lithotripsy. 4. Holmium laser cystolitholapaxy. ALLERGIES: No known drug allergies. SOCIAL HISTORY: Two packs a day for a number of years. He denies alcohol or drug use. HOME MEDICATIONS: Metformin, fenofibrate, Norvasc, Amaryl, baclofen. REVIEW OF SYSTEMS: Reviewed 12 systems; negative except for as mentioned in HPI. PHYSICAL EXAMINATION: Vital Signs: T 97.4 degrees, P 87, BP 136/52. General: No acute distress, pleasant male. HEENT: Normocephalic, atraumatic. Cardiovascular: Regular rhythm. Pulmonary: Bilateral breath sounds. Abdomen: Nontender, but protuberant. Back: No CVA tenderness. Lymphatic: No groin lymphadenopathy. : Normal phallus. Normal meatus. Sinclair catheter in place draining straw-colored urine. Rectal: Digital rectal examination is deferred at this time. Dermatologic: No obvious skin rashes. Neurologic: Alert and oriented x3. Psychiatric: Appropriate mood and affect. PERTINENT LABORATORY DATA: 1. White cell count of 18,000, INR of 1, creatinine of 0.9. His calcium was 11.1. 2. Urinalysis was positive for white cells, leukocytes, bacteria, calcium oxalate crystals and red blood cells. PERTINENT CULTURES: Enterococcus faecalis in his urine. PERTINENT IMAGES: CT abdomen and pelvis with IV contrast on 11/16/2016 showing findings per HPI. ASSESSMENT AND PLAN: A 71-year-old male with hypercalcemia likely secondary to the pancreatic mass with metastases, which is likely the source of recurrent and fast-growing stones. He denies any pain. He is still fairly weak. I have reviewed the images with the patient. I had actually requested for the radiology colleagues to perform computed tomography renal stone search in the prone position yesterday as Mr. Kathleen has had presumed ureteral stones which ended up being bladder stones. In prone position, CT scan revealed that the stones were still lodged in the ureter; hence, he truly does have two distal ureteral stones. I have discussed with the patient that he would benefit from left ureteroscopy with Holmium laser lithotripsy, stone basket extraction, possible ureteral stent. I have advised for him to get stronger for a day or so prior to considering setting up the surgery. PLAN: 1. I agree with antibiotics. 2. Will plan for cystoscopy, left ureteroscopy, laser lithotripsy, stone basket extraction, placement of ureteral stent on 11/19/2016. Thank you for consultation. Will follow. cc: Goldy Blackmon MD
--- NOTE | 2016-11-17 15:26 | Diag Imaging Result Document ---
PROCEDURE NAME: BONE SCAN, TOTAL BODY - 11/16/2016 NUCLEAR MEDICINE WHOLE BODY BONE SCAN: COMPARISON: None available. FINDINGS: 25.3 mCi of technetium-99 MDP was administered intravenously and images of the whole body were obtained in the usual fashion post administration. There is increased activity related to the right hand due to the injection site. There does appear to be increased activity associated with the manubrium of the sternum. This may represent degenerative activity at the sternoclavicular joints. Consider evaluation with plain radiography. Otherwise, no abnormal increased uptake or focal photopenia is identified to indicate a destructive or traumatic pathology. There is normal soft tissue uptake, and there is normal excretion of radiotracer by the system. IMPRESSION: Somewhat increased uptake associated with the manubrium of the sternum as described. Please see above discussion.
[2016-11-17] MEDS ORDERED: VENOFER IV ONE (16:24)
[2016-11-17] MEDS ORDERED: VENOFER 200 MG in NS 150 ML IV ONE (17:00)
[2016-11-17] MEDS: LIPITOR PO SCH (23:08)
[2016-11-18] MEDS: NS 1,000 ML IV SCH ×2 (02:26→10:59)
[2016-11-18] MEDS: TOBRADEX OPH SUSP LEFT EYE SCH ×4 (02:55→20:37)
[2016-11-18] MEDS: ZOSYN 3.375 GM/NS 3.375 GM/50 ML IVPB IV SCH ×4 (05:38→21:00)
[2016-11-18] MEDS: CARAFATE LIQUID PO SCH ×4 (05:38→20:36)
[2016-11-18 06:39] LABS: BASO% 0.3 % (0.0-0.8); EOS# 0.62 X1000 (0.0-0.7); EOS% 3.6 % (0.0-10.0); IMM GRAN% 0.6 % (0.0-0.5); LYMPH# 1.01 X1000 (1.2-3.4); LYMPH% 5.9 % (20.5-51.1); MANUAL DIFF NEEDED? YES; MCH 27.5 PG (27-31); MCHC 31.3 g/dL (33-37); MCV 88.2 FL (81-99); MONO# 0.78 X1000 (0.11-0.59); MONO% 4.5 % (1.7-9.3); MPV 10.8 FL (7.4-10.4); NEUT% 85.1 % (42.2-75.2); PLT 221 X1000 (130-400); RBC 3.63 XMIL (4.7-6.1)
[2016-11-18 07:04] LABS: AGAP 13; ALBUMIN 2.6 g/dL (3.5-5.0); ALKALINE PHOSPHATASE 87 U/L (32-122); BUN 12 mg/dL (8-22); CALCIUM 10.5 mg/dL (8.8-10.2); CHLORIDE 106 mmol/L (98-107); COSMO 281; GOT 21 U/L (10-34); GPT 22 U/L (10-44); POTASSIUM 4.6 mmol/L (3.5-5.1); SODIUM 140 mmol/L (136-145); TCO2 21 mmol/L (25-35); TOTAL BILIRUBIN 0.38 mg/dL (0.20-1.00); TOTAL PROTEIN 5.8 g/dL (6.3-8.3)
[2016-11-18 07:25] LABS: BANDS 12 % (0-1); EOS 4 % (1-10); HYPOCHROM 1+; LYMPHS 8 % (21-51)
[2016-11-18] MEDS: PRILOSEC PO SCH ×2 (09:38→20:36)
[2016-11-18] MEDS: ICAR-C PO SCH ×2 (09:38→20:36)
[2016-11-18] MEDS: PATIENT'S OWN MED PO SCH (09:38)
[2016-11-18] MEDS: LYRICA PO SCH ×2 (09:38→20:36)
[2016-11-18] MEDS: FLOMAX PO SCH ×2 (09:39→20:36)
[2016-11-18] MEDS: COZAAR PO SCH (09:39)
[2016-11-18] MEDS: MAG-OX PO SCH (09:39)
[2016-11-18] MEDS ORDERED: LASIX IV ONE (11:47)
--- NOTE | 2016-11-18 15:34 | Diag Imaging Result Document ---
PROCEDURE NAME: BRODERICK ABDOMEN - 11/18/2016 ABDOMEN: COMPARISON: CT from 11/16/2016. FINDINGS: Portable technique was used. Detail is extremely poor. No obvious constipation. There are bilateral renal stones. IMPRESSION: No significant constipation.
[2016-11-18] MEDS ORDERED: VENOFER IV ONE (16:25)
[2016-11-18] MEDS ORDERED: MILK OF MAGNESIA PO ONE (16:46)
[2016-11-18] MEDS ORDERED: VENOFER 200 MG in NS 150 ML IV ONE (17:00)
--- NOTE | 2016-11-18 17:32 | PROGRESS NOTE ---
DATE: 11/18/2016 SUBJECTIVE: This morning, Mr. Kathleen referred to be doing fine. According to him, he has not had any bowel movement since admission and he feels extremely distended in his abdomen. OBJECTIVE: Vital Signs: Blood pressure is 126/48, pulse of 83, respiration is 18, temperature 97.4 degrees. General: Mr. Kathleen is a 71-year-old male. He was in bed. He seems slightly uncomfortable but not in any distress. HEENT: Mucosa is pink and moist. Anicteric. Acyanotic. Neck: Supple. Chest: Good air entry bilateral. Cardiovascular: Regular rate and rhythm. Abdomen: Soft, distended. There is remarkable shifting dullness. Extremities: There is no pedal edema. Patient has remarkable congenital abnormalities in both upper and lower extremities. The right lower extremity has a mid metatarsal previous amputation. BELT MAKER: Patient is alert, awake. Follows commands. He does have issues with the left eye and also apparent left facial palsy. LABORATORY DATA: WBC is down to 17.21, hemoglobin is 10.0, platelet count is 221,000, there is 12% of bands on peripheral smear. Chemistry is reviewed, unremarkable. Calcium is down to 10.05. The PTH related peptide is 3.7, which is high, consistent with the fact that this is non PTH related hypercalcemia. ASSESSMENT: 1. Generalized weakness likely due to underlying malignancy. 2. Malignant hypercalcemia, non PTH related. The PTH related peptide is elevated which is consistent with the fact that this is malignant induced. 3. Pancreatic mass suspicious for malignancy with metastasis to the neighboring organs. FNA in has been done, we are still pending the pathology report. 4. Complicated urinary tract infection with left hydronephrosis associated with a stone in the ureterovesical junction. Urology has been consulted. There is a plan for intervention for tomorrow. 5. Enterococcal faecalis urinary tract infection. We will continue with the current IV antibiotics. 6. Iron deficiency anemia. Patient has been given iron infusion. 7. Distended abdomen. I think part of the issue has to do with the fluid that we given him. So I will discontinue the IV fluids and give him a dose of Lasix. I will also do a KUB to make sure there is no excessive constipation compromising his care, and we will go ahead and given symptomatic treatment for the constipation. cc: Lion Serrano MD
[2016-11-18] MEDS: LOVENOX SUBQ SCH (17:52)
[2016-11-18] MEDS: SYMBICORT 160/4.5 MICROGM INHALER INH SCH (19:23)
[2016-11-18] MEDS: LIPITOR PO SCH (20:36)
[2016-11-18] MEDS: DUONEB (A & A) INH PRN (21:44)
[2016-11-18] MEDS ORDERED: MORPHINE ONE (22:20)
[2016-11-19] MEDS: [UNRECOGNIZED DRUG - OTHER] LEFT EYE SCH ×2 (01:44→22:29)
[2016-11-19] MEDS: CARAFATE LIQUID PO SCH ×5 (01:45→22:28)
[2016-11-19] MEDS: ZOSYN 3.375 GM/NS 3.375 GM/50 ML IVPB IV SCH ×4 (04:32→22:31)
[2016-11-19] MEDS: TOBRADEX OPH SUSP LEFT EYE SCH ×4 (04:34→22:50)
[2016-11-19 06:38] LABS: BASO% 0.2 % (0.0-0.8); EOS# 0.55 X1000 (0.0-0.7); EOS% 2.8 % (0.0-10.0); HEMATOCRIT 31.3 % (42.0-52.0); HEMOGLOBIN 9.6 g/dL (14.0-18.0); IMM GRAN# 0.11 X1000 (0.0-0.04); IMM GRAN% 0.6 % (0.0-0.5); LYMPH# 0.97 X1000 (1.2-3.4); MANUAL DIFF NEEDED? YES; MCHC 30.7 g/dL (33-37); MCV 87.9 FL (81-99); MONO# 0.85 X1000 (0.11-0.59); MONO% 4.4 % (1.7-9.3); MPV 10.5 FL (7.4-10.4); PLT 230 X1000 (130-400); RBC 3.56 XMIL (4.7-6.1)
[2016-11-19 06:48] LABS: EOS 6 % (1-10); LYMPHS 8 % (21-51); MONO 2 % (1-9)
[2016-11-19 06:58] LABS: CALCIUM 10.1 mg/dL (8.8-10.2)
[2016-11-19] MEDS: PRILOSEC PO SCH ×2 (10:03→22:28)
[2016-11-19] MEDS: COZAAR PO SCH (10:03)
[2016-11-19] MEDS: PATIENT'S OWN MED PO SCH (10:03)
[2016-11-19] MEDS: MAG-OX PO SCH (10:03)
[2016-11-19] MEDS: FLOMAX PO SCH ×2 (10:04→22:28)
[2016-11-19] MEDS: LYRICA PO SCH ×2 (10:04→22:35)
[2016-11-19] MEDS: ICAR-C PO SCH ×2 (10:04→22:28)
[2016-11-19] MEDS: DUONEB (A & A) INH PRN ×3 (10:04→19:57)
[2016-11-19] MEDS: SYMBICORT 160/4.5 MICROGM INHALER INH SCH ×2 (10:04→19:58)
[2016-11-19] MEDS ORDERED: AK-FLUOR ONE (12:16)
[2016-11-19] MEDS ORDERED: DIPRIVAN 1% ONE (13:21)
[2016-11-19] MEDS ORDERED: FENTANYL ONE (13:21)
[2016-11-19] MEDS ORDERED: ANESTHESIA PB SET 88 IN 5742 ONE (13:37)
[2016-11-19] MEDS ORDERED: EXTENSION SET 32 IN 4522 ONE (13:37)
[2016-11-19] MEDS ORDERED: XYLOCAINE-MPF 2% ONE (13:37)
[2016-11-19] MEDS ORDERED: LR 1,000 ML ONE (13:37)
--- NOTE | 2016-11-19 15:14 | PROGRESS NOTE ---
DATE: 11/19/2016 SUBJECTIVE: Today, Mr. Kathleen referred to be doing a little better. Still feels abdomen is kind of distended and wants the abdomen more relieved. He was given some medications and he has had good bowel movement. OBJECTIVE: Vital Signs: Blood pressure is 107/41, pulse of 87, respiration is 22, temperature 98.9 degrees. General: Mr. Kathleen is a 71-year-old male. He is in bed, not seemingly in distress. A little uncomfortable because of abdominal distention. Mucosa is pink and moist. Anicteric. Acyanotic. Neck is supple. Chest was clear. Just a few bibasilar crepitations. Cardiovascular: Regular rate and rhythm. Abdomen is soft, is nontender. There is shifting dullness. Extremities: 1+ pedal edema. 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 Multiple extremity congenital deformities are noted as well. LABORATORY DATA: WBC is 19.42, hemoglobin is 9.6, platelet count of 230,000. Chemistry was reviewed and was completely normal. Calcium is down to 10.1. ASSESSMENT: 1. Generalized weakness due to underlying malignancy. 2. Malignant hypercalcemia, non-PTH related. This is improving. 3. Pancreatic mass suspicious for malignancy with metastasis to the neighboring organs. We are still pending the official report on the FNA. 4. Complicated urinary tract infection with left hydronephrosis associated with stone in the UV junction. The patient is pending urological intervention today. 5. Enterococcal faecalis urinary tract infection. We will continue with the IV antibiotics. 6. Iron deficiency anemia. The patient was given an infusion of iron by hematology/oncology team. 7. Mildly distended abdomen. 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 If the patient continues to have significant abdominal discomfort and swelling, we will do a tap to relieve some of the discomfort. cc: Lion Serrano MD MTDD
[2016-11-19] MEDS: LIPITOR PO SCH (22:28)
[2016-11-19] MEDS: LOVENOX SUBQ SCH ×2 (22:29→22:31)
[2016-11-19] MEDS: LASIX IV SCH (22:29)
[2016-11-20] MEDS: DUONEB (A & A) INH PRN ×4 (04:16→19:46)
[2016-11-20] MEDS: CARAFATE LIQUID PO SCH ×4 (05:14→22:46)
[2016-11-20] MEDS: TOBRADEX OPH SUSP LEFT EYE SCH ×4 (05:14→20:55)
[2016-11-20] MEDS: ZOSYN 3.375 GM/NS 3.375 GM/50 ML IVPB IV SCH ×4 (05:15→22:47)
[2016-11-20 08:15] LABS: BASO% 0.2 % (0.0-0.8); EOS% 1.3 % (0.0-10.0); HEMOGLOBIN 9.8 g/dL (14.0-18.0); IMM GRAN# 0.25 X1000 (0.0-0.04); LYMPH# 1.02 X1000 (1.2-3.4); LYMPH% 4.3 % (20.5-51.1); MANUAL DIFF NEEDED? YES; MCHC 30.6 g/dL (33-37); MCV 88.2 FL (81-99); MONO# 0.92 X1000 (0.11-0.59); MONO% 3.9 % (1.7-9.3); MPV 11.2 FL (7.4-10.4); NEUT% 89.3 % (42.2-75.2); PLT 256 X1000 (130-400); RBC 3.63 XMIL (4.7-6.1)
[2016-11-20 08:56] LABS: BANDS 6 % (0-1); LYMPHS 4 % (21-51); MONO 2 % (1-9)
[2016-11-20] MEDS: LYRICA PO SCH ×2 (09:21→20:57)
[2016-11-20] MEDS: PATIENT'S OWN MED PO SCH (09:21)
[2016-11-20] MEDS: COZAAR PO SCH (09:21)
[2016-11-20] MEDS: ICAR-C PO SCH ×2 (09:22→20:57)
[2016-11-20] MEDS: PRILOSEC PO SCH ×2 (09:22→20:57)
[2016-11-20] MEDS: FLOMAX PO SCH ×2 (09:22→20:57)
[2016-11-20] MEDS: MAG-OX PO SCH (09:22)
[2016-11-20] MEDS: LASIX IV SCH (09:23)
[2016-11-20] MEDS: SYMBICORT 160/4.5 MICROGM INHALER INH SCH ×2 (09:53→19:46)
[2016-11-20] MEDS ORDERED: MYLICON PO PRN (12:58)
[2016-11-20] MEDS: NORCO-10 PO PRN ×2 (13:23→20:57)
--- NOTE | 2016-11-20 16:56 | PROGRESS NOTE ---
DATE: 11/20/2016 SUBJECTIVE: Today Mr. Kathleen referred to be doing fine but he does have remarkable abdominal distention and he is asking for some help. OBJECTIVE: Vital signs: Blood pressure is 109/54, pulse of 83, respirations 18 , temperature is 98.2 degrees. General: Mr. Kathleen 71-year-old male. He is in bed in mild discomfort because of abdominal distention. HEENT: Mucosa is pink and moist. Anicteric. Acyanotic. Neck: Supple. Chest: Air entry is bilaterally reduced. A few bibasilar crepitations. Cardiovascular: Regular rate and rhythm. Abdomen: Severely distended. Bowel sounds were reduced. There is shifting dullness but there is also some tympanic nature to percussion. Extremities: 1+ pedal edema. 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 The patient is blind in the left eye, also has left facial droop, multiple extremity deformity from congenital. LABORATORY DATA: WBC is up to 23.81, hemoglobin is 9.8, platelet count is 256, 000. Chemistry is reviewed. Creatinine is 1.5. Blood culture 48 hours negative. ASSESSMENT: 1. Generalized weakness due to underlying malignancy. 2. Malignant hypercalcemia. This is improved. 3. Complicated urinary tract infection with left hydronephrosis associated with stone in the ureterovesical junction. Patient has had surgery . I am still waiting for the surgery official report as to what Dr. Blackmon really did. 4. Enterococcal faecalis urinary tract infection. Will continue with the current antibiotics. 5. Iron deficiency anemia. The patient has been infused by hematology. 6. Abdominal distention. This has gotten a whole lot worse. I am not totally convinced that all of it is ascites. I think probably patient has an underlying ileus or some form of mechanical obstruction. I did do a neck KUB 3 days ago. It did not show anything really much. I would therefore go ahead and do a CT scan of the abdomen to see what is going on. Patient's creatinine has gone up a little bit so we cannot use IV contrast. I will therefore use only a p.o. contrast. 7. Acute kidney injury. I think part of it is from the Lasix that we were giving him for the hypercalcemia therapy. We will discontinue that. I also think from the distended abdomen this could also compromise the renal circulation and cause some renal insufficiency. I will review the patient a little later on to see what the CT report shows. Job#: cc: Lion Serrano MD MTDD
--- NOTE | 2016-11-20 17:28 | Diag Imaging Result Document ---
PROCEDURE NAME: CT ABD/PELVIS ORAL CONTR ONLY - 11/20/2016 CT ABDOMEN AND PELVIS WITH ORAL CONTRAST: FINDINGS: There are small bilateral pleural effusions with basilar atelectasis. There is a small to moderate amount of abdominal and pelvic ascites. Large cyst within or adjacent to the right lobe of the liver is unchanged from study performed several days earlier. There are other small scattered hypodense lesions throughout the liver. The spleen is not enlarged. Mass like area in the body of the pancreas has an appearance similar to the prior study. There appears to be wall thickening to the stomach. Left adrenal nodule is unchanged. There are renal cysts. Interval placement of a left ureteral stent. No bowel obstruction. No abscess. A Sinclair catheter has the urinary bladder decompressed. IMPRESSION: Stable CT of the abdomen and pelvis with the exception of interval placement of a left ureteral stent. No bowel obstruction.
[2016-11-20 19:17] LABS: TOTAL PROT BODY FLUID 3.2 g/dL
[2016-11-20 19:55] LABS: DIFF NEEDED? YES; MONOS 21 %; POLYS 79 %; WBC BF 6084 /cumm
[2016-11-20] MEDS: [UNRECOGNIZED DRUG - OTHER] LEFT EYE SCH (20:56)
[2016-11-20] MEDS: LIPITOR PO SCH (20:57)
[2016-11-20] MEDS: LOVENOX SUBQ SCH (20:58)
--- NOTE | 2016-11-21 00:01 | OPERATIVE NOTE ---
DATE OF PROCEDURE: 11/20/2016. TIME OF PROCEDURE: 6:30. PROCEDURE PERFORMED: Paracentesis under ultrasound guidance. INDICATION: Massive ascites compromising the mechanical aspect of respiration. PROCEDURE NOTE: Mr. Kathleen is a 71-year-old male, who has been diagnosed with pancreatic mass, suspicious for malignancy, with metastasis to the neighboring organs. Patient has been having abdominal distention for the past couple days. A CT scan of the abdomen did reveal massive ascites. Because of difficulty with work of breathing, it was deemed necessary to remove some of the ascitic fluid to improve work of breathing. The procedure was explained in detail to Mr. Kathleen, and he consented to it. At the time of the procedure, an adequate pocket was identified under ultrasound, and was marked. Time-out was called. The patient was identified both by name and by a wristband information, and the procedure was recalled again. The skin was sterilized with iodine, and the spot was anesthetized with 1% lidocaine. Once local anesthesia was achieved, a small angela was made on the skin, and the abdominal paracentesis trochlear was advanced under negative pressure until adequate ascitic fluid was obtained or returned. The needle was retrieved and the trocar was advanced into the peritoneal cavity. This was passed to the draining system. An initial 20 mL of ascitic, varied, uniformly bloody fluid was obtained. This was sent for analysis. Subsequently, 3.7 L of homogeneously bloody fluid was obtained. The patient tolerated the procedure very well. At the end of the procedure, patient referred to be breathing a whole lot better, and his vitals were rechecked, and were completely stable. The procedure was done completely with the attending nurse, and the patient's family members were also in the room. There was no complication after the procedure, and there was very minimal blood loss. cc: Lion Serrano MD
[2016-11-21] MEDS: DUONEB (A & A) INH PRN ×4 (04:05→19:59)
[2016-11-21] MEDS: TOBRADEX OPH SUSP LEFT EYE SCH ×4 (04:25→22:33)
[2016-11-21] MEDS: CARAFATE LIQUID PO SCH ×4 (05:50→22:34)
[2016-11-21] MEDS: ZOSYN 3.375 GM/NS 3.375 GM/50 ML IVPB IV SCH (05:51)
[2016-11-21 06:44] LABS: BASO% 0.2 % (0.0-0.8); EOS# 0.39 X1000 (0.0-0.7); EOS% 1.6 % (0.0-10.0); HEMATOCRIT 30.6 % (42.0-52.0); HEMOGLOBIN 9.4 g/dL (14.0-18.0); IMM GRAN# 0.19 X1000 (0.0-0.04); IMM GRAN% 0.8 % (0.0-0.5); LYMPH# 1.01 X1000 (1.2-3.4); LYMPH% 4.2 % (20.5-51.1); MANUAL DIFF NEEDED? YES; MCHC 30.7 g/dL (33-37); MCV 87.9 FL (81-99); MONO# 1.01 X1000 (0.11-0.59); MONO% 4.2 % (1.7-9.3); MPV 10.9 FL (7.4-10.4); PLT 241 X1000 (130-400); RBC 3.48 XMIL (4.7-6.1)
[2016-11-21 07:06] LABS: ALBUMIN 2.2 g/dL (3.5-5.0); CALCIUM 9.9 mg/dL (8.8-10.2); TOTAL BILIRUBIN 0.44 mg/dL (0.20-1.00); TOTAL PROTEIN 5.3 g/dL (6.3-8.3)
[2016-11-21 07:17] LABS: BANDS 10 % (0-1); EOS 2 % (1-10); LYMPHS 4 % (21-51); MONO 6 % (1-9)
[2016-11-21] MEDS: SYMBICORT 160/4.5 MICROGM INHALER INH SCH ×2 (09:52→19:59)
[2016-11-21] MEDS: PRILOSEC PO SCH ×2 (10:41→22:34)
[2016-11-21] MEDS: FLOMAX PO SCH ×2 (10:41→22:34)
[2016-11-21] MEDS: ICAR-C PO SCH ×2 (10:41→22:34)
[2016-11-21] MEDS: MAG-OX PO SCH (10:41)
[2016-11-21] MEDS: LYRICA PO SCH ×2 (10:41→22:33)
[2016-11-21] MEDS: PATIENT'S OWN MED PO SCH (10:42)
[2016-11-21] MEDS: NS 1,000 ML IV SCH (10:44)
[2016-11-21] MEDS: MERREM 500 MG in NS 50 ML IV SCH ×2 (10:50→17:40)
[2016-11-21] MEDS: NORCO-10 PO PRN ×2 (10:50→22:33)
--- NOTE | 2016-11-21 13:21 | PROGRESS NOTE ---
DATE: 11/21/2016 Today Mr. Kathleen referred to be doing okay. He continues to have abdominal discomfort. OBJECTIVE: Vital signs: Blood pressure is 112/42, pulse of 84, respirations 21, temperature is 98.0 degrees. General: Mr. Kathleen is a 71-year-old male. He is in bed, not seemingly distressed. HEENT: Mucosa is pink and moist. Anicteric. Acyanotic. Neck: Supple. Chest: Air entry is bilaterally reduced. Abdomen: Soft, distended. There is shifting dullness. Did not appreciate any mass. Extremities: 1+ pedal edema. FAN INSTALLER: Patient is alert and oriented. Extremities: With congenital deformities. LABORATORY DATA: WBC is up to 24.12, hemoglobin is 9.4, platelet count of 241,000. There is 10% bands on the peripheral smear. Sodium is 136, potassium 4.0, chloride 101, bicarb is 22. Creatinine is up to 1.6. Calcium is down to 9.9. The ascitic fluid shows WBC of 6084 with 79% of neutrophils. The albumin on the ascitic fluid is 1.8 and the albumin on serum is 2.2. When you do the subtraction this is further than 1.1 so the pathophysiology for the ascites is not from portal hypertension. ASSESSMENT: 1. Generalized weakness due to underlying malignancy. 2. Malignant hypercalcemia improved. 3. Complicated UTI with left hydronephrosis associated with stone in the ureterovesical junction status post urological intervention. 4. Enterococcal faecalis urinary tract infection. Patient is on antibiotics however the white cell count is going high. We therefore changed the antibiotics today. 5. Ascites likely due to underlying malignancy. The fluid was homogeneously bloody. The SAAG is less than 1.1 consistent with non portal hypertension related ascites and I think it is due to the underlying malignancy. It is however predominantly neutrophilic so we suspect possible superimposed infected ascitic fluid. We will continue with the antibiotics. 6. Acute kidney injury. I think part of it is from the Lasix. This has been discontinued. We will continue with the IV fluid gentle hydration to see if we can perfuse the kidneys. Of note patient also had a CT scan of the abdomen and chest on presentation both of which were with contrast so this could be also contrast induced. 7. Iron deficiency anemia. The patient has been given an infusion of iron by the Heme-Onc team. 8. Pancreatic mass suspicious for a pancreatic malignancy with invasion to all surrounding organs compatible with advanced primary pancreatic cancer. Numerous liver metastases. We are still waiting on the tissue diagnosis of this. This was done under a CT-guided on 11/16/2016. In general, I think Mr. Kathleen has an advanced disease and his prognosis will be extremely poor. Will however wait on the tissue diagnosis and further recommendations from our Heme-Onc colleagues. cc: Lion Serrano MD
--- NOTE | 2016-11-21 17:44 | PROGRESS NOTE ---
DATE: 11/21/2016 SUBJECTIVE: Mr. Kathleen reports a decent day. He denies significant discomfort from the stent. OBJECTIVE: Vital signs: T 98.5 degrees, P 89, BP 97/45. General: No acute distress. HEENT: Normocephalic, atraumatic. Cardiovascular: Regular rhythm. Pulmonary: Bilateral breath sounds. Abdomen: Nontender, distended. : Catheter in place, draining straw-colored urine. Stent string is in place. PERTINENT LABS: White cell count of 24,000, hematocrit of 31. Creatinine of 1.6 which is up from 1.5 yesterday. ASSESSMENT: This is a 71-year-old male status post left ureteroscopy with stent placement and laser lithotripsy. He has had an increase in his creatinine which I do not have an explanation for given that he has a stent in place. He had a CT of the abdomen and pelvis ordered on 11/20/2016 which showed the stent in the appropriate position. His stones were removed. I have discussed with the family that we will plan on having the stent removed on 11/23/2016. PLAN: 1. No further urologic care needed at this point. 2. Continue catheter to gravity drainage. 3. We will plan on removing the stent on 11/23/2016. 4. Follow as needed. cc: Goldy Blackmon MD
--- NOTE | 2016-11-21 18:20 | OPERATIVE NOTE ---
PROCEDURE DATE: 11/19/2016 SURGEON: Goldy Blackmon MD PREOPERATIVE DIAGNOSIS: Two large left ureteral stones. PRIMARY PROCEDURE: Cystoscopy, left ureteroscopy with laser lithotripsy, stone basket extraction, placement of 6-Somali, 24 cm ureteral stent. INDICATIONS: A 71-year-old male with history of BPH with urinary retention as well as recurrent urolithiasis. He had recently underwent right-sided treatment for ureteral stones. He also had cystolitholapaxy. He presented to the hospital and with imaging was found to have 2 large ureteral stones, one 11 mm and one 9 mm. He had repeat CT scan which confirmed the stones. He presents for definitive intervention. FINDINGS: Two large ureteral stones with hydroureteronephrosis. Successful lithotripsy, adequate stent placement. DESCRIPTION OF PROCEDURE: After obtaining informed consent, patient brought to the operative room. Perioperative antibiotics and laryngeal mask anesthesia were administered. He was placed in lithotomy position, prepped and draped in sterile fashion. A 21-Somali rigid cystoscope was used to gain access to the bladder, which was then examined in systematic fashion. He had several moderate trabeculations, a few diverticula, no significant mucosal lesions noted. We turned attention to the left ureteral orifice which was cannulated with PTFE wire. It met resistance hence I switched to Sensor wire. I was able to advanced a Sensor wire to the level renal pelvis. Rigid ureteroscope was introduced alongside of the wire and the stones were seen just a couple centimeters above the ureterovesical junctions. A 365 micron laser fiber was used with holmium laser settings of 0.8 joules and 8 Hz to break the stones up into small fragments. Those were extracted with Nitinol basket. There were not sent off for analysis as they had been analyzed in the past. Repeat ureteroscopy revealed no evidence of sizable residual fragments. Given the evidence of ureteral mucosal edema, we elected to place ureteral stent. In standard fashion 6- Somali, 24 cm stent was placed over the wire via the cystoscope with the proximal coil position confirmed fluoroscopically and distal coil directly visualized. The string was left attached to the stent. A 16-Somali Sinclair catheter was reinserted with return of clear urine. He was extubated taken to PACU further recovery. ESTIMATED BLOOD LOSS: None. COMPLICATIONS: None. DISPOSITION: To PACU, subsequently floor for observation with Sinclair catheter to gravity drainage and ureteral stent attached the string. cc: Goldy Blackmon MD
[2016-11-21] MEDS: [UNRECOGNIZED DRUG - OTHER] LEFT EYE SCH (22:33)
[2016-11-21] MEDS: LIPITOR PO SCH (22:34)
[2016-11-21] MEDS: LOVENOX SUBQ SCH (22:34)
[2016-11-22] MEDS: TOBRADEX OPH SUSP LEFT EYE SCH ×4 (01:25→22:48)
[2016-11-22] MEDS: MERREM 500 MG in NS 50 ML IV SCH ×2 (01:31→11:03)
[2016-11-22] MEDS: DUONEB (A & A) INH PRN ×4 (03:57→19:32)
[2016-11-22] MEDS: CARAFATE LIQUID PO SCH ×4 (05:13→22:48)
[2016-11-22] MEDS: NS 1,000 ML IV SCH ×2 (05:13→22:54)
[2016-11-22 06:19] LABS: BASO% 0.2 % (0.0-0.8); EOS# 0.46 X1000 (0.0-0.7); EOS% 1.5 % (0.0-10.0); HEMATOCRIT 30.5 % (42.0-52.0); HEMOGLOBIN 9.5 g/dL (14.0-18.0); IMM GRAN# 0.24 X1000 (0.0-0.04); IMM GRAN% 0.8 % (0.0-0.5); LYMPH# 1.05 X1000 (1.2-3.4); LYMPH% 3.4 % (20.5-51.1); MANUAL DIFF NEEDED? YES; MCH 27.2 PG (27-31); MCHC 31.1 g/dL (33-37); MCV 87.4 FL (81-99); MONO# 1.14 X1000 (0.11-0.59); MONO% 3.7 % (1.7-9.3); MPV 11.3 FL (7.4-10.4); NEUT% 90.4 % (42.2-75.2); PLT 294 X1000 (130-400); RBC 3.49 XMIL (4.7-6.1)
[2016-11-22 06:36] LABS: BANDS 14 % (0-1); LYMPHS 4 % (21-51); MONO 4 % (1-9)
[2016-11-22 06:45] LABS: CALCIUM 9.9 mg/dL (8.8-10.2); POTASSIUM 4.4 mmol/L (3.5-5.1)
[2016-11-22 07:15] LABS: MAGNESIUM 2.7 mg/dL (1.5-2.7)
--- NOTE | 2016-11-22 08:44 | PROGRESS NOTE ---
DATE: 11/22/2016 SUBJECTIVE: Mr. Kathleen reports not feeling any different. He denies left flank pain. PHYSICAL EXAMINATION: Vital Signs: T 97 degrees, P 92, BP 107/54. General: No acute distress. HEENT: Normocephalic, atraumatic. Abdomen: Nontender to palpation. : Sinclair catheter in place draining straw-colored urine. PERTINENT LABS: His white cell count is 31, hematocrit is 30.5. Creatinine is up to 2.4. ASSESSMENT AND PLAN: A 71-year-old male who has had 2 obstructive left ureteral stones for which he underwent ureteroscopy on 11/19/2016. He currently has a stent in place which will stay until tomorrow. He had a CT scan on 11/20/2016 which showed the stones no longer present and the stent in appropriate position. 1. Recommend medical workup for rising creatinine as it is unlikely to be due to any sort of obstruction. 2. I will remove his stent tomorrow at bedside. cc: Goldy Blackmon MD
[2016-11-22] MEDS ORDERED: VANCOMYCIN IV PER PHARMACY MISC SCH (08:45)
[2016-11-22] MEDS: SYMBICORT 160/4.5 MICROGM INHALER INH SCH ×2 (09:55→19:33)
[2016-11-22] MEDS ORDERED: VANCOMYCIN 1.5 GM in NS 250 ML IV SCH (10:00)
[2016-11-22 10:49] LABS: INR 1.04; PTT 31.5 Seconds (22.0-36.0)
[2016-11-22] MEDS: PATIENT'S OWN MED PO SCH (10:55)
[2016-11-22] MEDS: FLOMAX PO SCH ×2 (11:03→22:48)
[2016-11-22] MEDS: MAG-OX PO SCH (11:03)
[2016-11-22] MEDS: PRILOSEC PO SCH ×2 (11:03→22:48)
[2016-11-22] MEDS: NORCO-10 PO PRN ×2 (11:04→22:51)
[2016-11-22] MEDS: ICAR-C PO SCH ×2 (11:04→22:48)
[2016-11-22] MEDS: LYRICA PO SCH ×2 (11:12→22:51)
--- NOTE | 2016-11-22 11:34 | PROGRESS NOTE ---
DATE: 11/22/2016 SUBJECTIVE: Today, Mr. Kathleen seems to be more sick than yesterday. He refers to have some shortness of breath. OBJECTIVE: Vital Signs: Blood pressure is 96/39, pulse of 83, respirations 20 , temperature is 98.9 degrees. General Examination: Mr. Kathleen is a 71-year-old, male. He is in bed, in mild respiratory distress. HEENT: Mucosa is pink and moist. Anicteric and acyanotic. Neck: Supple. Chest: Air entry is bilaterally reduced with a few bibasilar crepitations. Cardiovascular: Regular rate and rhythm. Abdomen: Severely distended with fluid shift. LEATHER SORTER: Patient is alert and oriented. There is a left facial droop and left eye blindness. Laboratory Data: WBC is up to 31.14, hemoglobin is 9.5, platelet count is 294, 000. There are 14% of bands on the peripheral smear. Sodium is 135, potassium is 4.4, chloride is 101, bicarb is 20, BUN is 46, creatinine is 2.4. ASSESSMENT: 1. Generalized weakness, likely due to underlying malignancy. This was the primary presenting complain. 2. Malignant hypercalcemia. Presenting calcium was 13.2. This has been normalized. 3. Pancreatic mass with metastasis to neighboring organs, suspicious for primary pancreatic cancer. Patient had a CT-guided biopsy. We are still pending the report. 4. Acute kidney injury. This seems to be multifactorial. We are going to do urine studies and a renal ultrasound to get a better idea. For now, patient will continue on the intravenous fluids until we have the urine studies. 5. Ascites, likely due to underlying malignancy. Patient had a tap and 3.7 L were removed 3 days ago. This seems to have reaccumulated very rapidly. We will get the patient to interventional radiology so they will do it over there under ultrasound guidance and see if we can remove as much as possible. That probably will also help with the kidney function and his respiratory status. 6. Iron deficiency anemia. Patient was given a dose of iron infusion by the hematology/oncology team. 7. Complicated urinary tract infection with left hydronephrosis associated with stone in the ureterovesical junction, status post urological intervention by Dr. Blackmon. 8. Leukocytosis with bandemia. I think this is infection driven, likely from the left hydronephrosis. We would change the antibiotics to meropenem and vancomycin since patient seems to be decompensating. We will also consult infectious disease. 9. Poor prognosis. I think Mr. Kathleen is not showing any progress for the past 7 days that he has been in the hospital. He seems to be actually deteriorating over the course of the days. I think this is mainly driven by his underlying malignancy as well as possible infection. I do not think he will probably survive this hospitalization. I spoke with the at length about his wishes and if he has any recommendations for his care going forward. She is going to meet with the children and hopefully this afternoon, they will be able to make a decision, if patient continues to be full cold or they are going to change his status. I think Mr. Kathleen has continued to be extremely critical. If he remains full code, we may have to transfer him to the intensive care unit for very close monitoring. Critical time spent is 45 minutes. cc: Lion Serrano MD MTDD
[2016-11-22 15:28] LABS: UR CREAT RANDOM 280.1 mg/dL (14-26)
--- NOTE | 2016-11-22 16:16 | Diag Imaging Result Document ---
PROCEDURE NAME: US RENAL 2 (RETROPER) COMPLETE - 11/22/2016 RENAL ULTRASOUND: FINDINGS: The right kidney measures 12.5 x 6.6 x 6.1 cm. Questionable mild increased renal echotexture. Normal cortical thickness. There are several renal cysts. The largest measures 7.0 cm. No stone or hydronephrosis. The left kidney measures 15.5 x 5.9 x 6.1 cm. There is a 2.4 cm cyst in the mid kidney. No stone or hydronephrosis. The patient is noted to have at least a moderate amount of abdominal ascites. IMPRESSION: 1. Scattered renal cysts. 2. Borderline mild increased echotexture which can be seen with medical renal disease. 3. Moderate ascites.
[2016-11-22] MEDS ORDERED: ALBUMIN 25% IV ONE (16:27)
--- NOTE | 2016-11-22 17:01 | CONSULTATION ---
DATE OF CONSULTATION: 11/22/2016 CONCLUSION: This 71-year-old male is admitted to the hospital with an enterococcal urinary tract infection complicated by ureteral stones. He is status post a left-sided laser lithotripsy. A stent has been placed in the left ureter. The patient continues to have leukocytosis and in fact, his white count increased more from yesterday. I think it is possible that the patient has a very severe enterococcal infection involving the kidney, and this could be contributing to his leukocytosis, even though he has had lithotripsy and the stones are not present anymore. Complicating the patient's urinary tract infection is that he has a mass in the pancreas which appears to be pancreatic cancer which has already spread to the liver. RECOMMENDATIONS: I have discontinued meropenem and vancomycin and put the patient on high-dose ampicillin, namely 2 g IV every 6 hours. DISCUSSION: The patient's history was taken from the as the patient was unable to provide a history. He had become progressively weak with swelling in his abdomen and a weight loss of 23 pounds in the past 2 months. He was admitted to the hospital. Here, he was found to have a leukocytosis. Currently the white count is 31,140, hemoglobin 9.5, and platelet count 294,000. Chest CT scan shows no pneumonia. Creatinine is 2.4. The GFR is 27. CT scan of the abdomen and pelvis showed ascites and is thought to be metastatic disease in the liver and a mass in the pancreas as mentioned above. The patient's blood cultures are negative. The urine grew out Enterococcus and culture of the ascites found in the patient's abdomen is sterile also. PREVIOUS HOSPITALIZATIONS AND OPERATIONS: He has had surgery on his left eye. He has had a prostate surgery. He has also been admitted with a stroke. MEDICAL DISEASES: Positive for diabetes mellitus, hypertension, stroke, and benign prostatic hypertrophy, hyperlipidemia and gastroesophageal reflux disease. INFECTIOUS DISEASE HISTORY: Positive for UTI and pneumonia. FAMILY HISTORY: Positive for cancer and hypertension. SOCIAL HISTORY: [place] He has cats and dogs for pets. He does smoke cigarettes. He does not drink alcoholic beverages or abuse drugs. ALLERGIES: He has no known drug allergies. HOME MEDICATIONS: Flomax, Carafate, Lyrica, omeprazole, vitamins, Metformin, magnesium, losartan, iron, Amaryl, fenofibrate, Symbicort, baclofen, Norvasc and Lipitor. REVIEW OF SYSTEMS: I was unable to obtain from the patient. The patient's said that basically he had just gotten progressively weaker to the point that he could barely walk. He had an increase in his abdomen to where it became very protuberant. He lost his appetite. He did not complain of having dysuria, and he was not having diarrhea either. As far as the knew, he could hear and see okay. PHYSICAL EXAMINATION: Vital Signs: Temperature is 97.1 degrees, pulse 95, respirations 20, blood pressure 96/39. Generally: This is an ill-appearing, elderly male. He is very lethargic. He does not seem to be in acute distress. Head, eyes, ears, nose, and throat: He can hear my spoken words. I was unable to test his vision formally. 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 He is missing most of his teeth and the teeth he has appear to have caries in them. Neck: No meningismus. Thorax: Increased AP diameter of the chest. Lungs: Clear to auscultation. Cardiovascular: Heart rate is regular. Abdomen: Distended and somewhat firm. It did not appear to be tender. Neurologic: The patient is lethargic. He did follow request to move his extremities. His sensation was intact to touch. As mentioned above, I was unable to get a history from the patient. Integument: No rash noted. Thank you for the consult. O when 1 other thing on medical diseases. cc: Pato Mullins MD
[2016-11-22] MEDS: AMPICILLIN 2 GM/NS 2 GM/100 ML IVPB IV SCH ×2 (17:16→22:45)
[2016-11-22] MEDS: [UNRECOGNIZED DRUG - OTHER] LEFT EYE SCH (22:47)
[2016-11-22] MEDS: LIPITOR PO SCH (22:48)
[2016-11-22] MEDS: LOVENOX SUBQ SCH (22:48)
[2016-11-23] MEDS: TOBRADEX OPH SUSP LEFT EYE SCH ×4 (02:33→21:38)
[2016-11-23 06:18] LABS: BASO% 0.2 % (0.0-0.8); EOS# 0.46 X1000 (0.0-0.7); EOS% 1.5 % (0.0-10.0); HEMATOCRIT 29.9 % (42.0-52.0); HEMOGLOBIN 9.2 g/dL (14.0-18.0); IMM GRAN# 0.25 X1000 (0.0-0.04); IMM GRAN% 0.8 % (0.0-0.5); LYMPH# 1.11 X1000 (1.2-3.4); LYMPH% 3.5 % (20.5-51.1); MANUAL DIFF NEEDED? YES; MCH 26.9 PG (27-31); MCHC 30.8 g/dL (33-37); MCV 87.4 FL (81-99); MONO# 1.08 X1000 (0.11-0.59); MONO% 3.4 % (1.7-9.3); MPV 11.2 FL (7.4-10.4); NEUT% 90.6 % (42.2-75.2); PLT 273 X1000 (130-400); RBC 3.42 XMIL (4.7-6.1)
[2016-11-23] MEDS: AMPICILLIN 2 GM/NS 2 GM/100 ML IVPB IV SCH ×3 (06:18→21:39)
[2016-11-23] MEDS: CARAFATE LIQUID PO SCH ×5 (06:18→23:28)
--- NOTE | 2016-11-23 06:26 | EKG Report ---
Test Performed on : 11/22/2016 07:19:18 AM Test Reason : multiple PVC's, 3 beat run of Vtach Blood Pressure : / mmHG Vent. Rate : 093 BPM Atrial Rate : 093 BPM P-R Int : 166 ms QRS Dur : 100 ms QT Int : 330 ms P-R-T Axes : 054 036 131 degrees QTc Int : 410 ms Normal sinus rhythm. Nonspecific T wave abnormality Abnormal ECG When compared with ECG of 15-NOV-2016 15:46, Nonspecific T wave abnormality now evident in Inferior leads Confirmed by Rajesh ANTHONY, Juan José Lozoya ([id number]) on 11/23/2016 8:23:46 AM
[2016-11-23 06:31] LABS: BANDS 12 % (0-1); EOS 2 % (1-10); LYMPHS 4 % (21-51); MONO 4 % (1-9)
[2016-11-23 06:45] LABS: ALBUMIN 2.5 g/dL (3.5-5.0); CALCIUM 10.7 mg/dL (8.8-10.2); MAGNESIUM 2.8 mg/dL (1.5-2.7); POTASSIUM 4.3 mmol/L (3.5-5.1); TOTAL BILIRUBIN 0.35 mg/dL (0.20-1.00); TOTAL PROTEIN 5.5 g/dL (6.3-8.3)
[2016-11-23] MEDS: PRILOSEC PO SCH ×3 (09:25→23:28)
[2016-11-23] MEDS: FLOMAX PO SCH ×2 (09:25→21:43)
[2016-11-23] MEDS: ICAR-C PO SCH ×2 (09:25→21:43)
[2016-11-23] MEDS: LYRICA PO SCH ×3 (09:25→23:29)
[2016-11-23] MEDS: MAG-OX PO SCH (09:25)
[2016-11-23] MEDS: SYMBICORT 160/4.5 MICROGM INHALER INH SCH (10:54)
[2016-11-23] MEDS: DUONEB (A & A) INH PRN (10:54)
[2016-11-23] MEDS: PATIENT'S OWN MED PO SCH (11:55)
--- NOTE | 2016-11-23 13:50 | Diag Imaging Result Document ---
PROCEDURE NAME: US PARACENTESIS - 11/23/2016 ULTRASOUND-GUIDED PARACENTESIS: FINDINGS: The patient by history had a paracentesis on 11/20/2016. The patient presented to the ultrasound for a therapeutic paracentesis. The patient's had provided consent for this procedure. Free peritoneal fluid at the right lower quadrant was localized by ultrasound. The patient was prepped and draped in the usual fashion and the skin and subcutaneous tissues at the procedure site were infiltrated with local anesthetic. Paracentesis was performed at this location via right anterolateral approach utilizing a paracentesis/ thoracentesis catheter and vacuum assist bottles. A total of 4.8 L of reddish fluid was removed. Due to the reddish nature of the fluid, the fluid was sent to the laboratory for cytology. The patient tolerated the procedure well. No immediate complications were incurred. IMPRESSION: Successful ultrasound-guided paracentesis with 4.8 L of reddish fluid removed. [facility]
[2016-11-23] MEDS: NS 1,000 ML IV SCH (13:59)
--- NOTE | 2016-11-23 15:29 | CONSULTATION ---
DATE OF CONSULTATION: 11/23/2016 REASON FOR CONSULTATION: Acute kidney injury. HISTORY OF PRESENT ILLNESS: Mr. Kathleen is a 71-year-old man who had recent ureteral stones that were treated surgically and a stent was placed by Dr. Blackmon. He originally presented to the hospital on the with generalized weakness and a cough. Unfortunately, he is not able to give me any history at this time. He developed acute kidney injury during his hospitalization. Creatinine started rising on or about the . He did have a CT with contrast performed on the and his imaging demonstrated obstructive stones and underwent surgical intervention on the as above. His creatinine peaked on the and has improved today. PAST MEDICAL HISTORY: Diabetes, CVA, hypertension, dyslipidemia. ALLERGIES: None. FAMILY HISTORY, SOCIAL HISTORY, REVIEW OF SYSTEMS: Not obtainable except as listed. MEDICATIONS: Lovenox, DuoNeb, Carafate, Symbicort, Flomax, Icar, Lipitor, Lyrica, Prilosec, Mag- Ox, TobraDex, morphine, ampicillin, [place]. PHYSICAL EXAMINATION: Vital Signs: Blood pressure 124/53, heart rate 88, respiration 18, afebrile. Generally: He is sitting in a chair. No acute distress. He dozes off during exam. HEENT: Skin is warm and dry. The left eye is closed and there is a left facial droop. Oropharynx is moist. Neck: Neck veins not appreciated. Heart: Regular. Lungs: Have equal breath sounds. No crackles. Abdomen: Markedly distended but soft. Increased bowel sounds but no tinkles or rushes. Nontender. Extremities: Have trace edema. No clubbing or cyanosis. LABORATORY DATA: Sodium 135, potassium 4.3, chloride 102, bicarbonate 19, BUN 53, creatinine 2.1. IMPRESSION: Acute kidney injury. Multifactorial. IV contrast, ureteral obstruction, infection. Improving. Good urine output. We will continue to observe without any other intervention at this time. I have reviewed his medications. No changes are required. cc: Juancarlos Moreno MD
--- NOTE | 2016-11-23 16:03 | PROGRESS NOTE ---
DATE: 11/23/2016 SUBJECTIVE: Today Mr. Kathleen continues to be stable. Distended abdomen but no acute complaints. OBJECTIVE: Vital signs: Blood pressure is 114/53, pulse of 83, respirations 18, temperature is 98.6 degrees. General: Mr. Kathleen is a 71-year-old male. He is in bed, in mild respiratory distress. HEENT: Mucosa is pink and moist. Anicteric. Acyanotic. Neck: Supple chest good air entry bilateral. A few bibasilar crepitations. Cardiovascular: Regular rate and rhythm. Abdomen: Soft. It is distended. Positive fluid shift and dullness. IMCU SPECIALIST: Patient is alert. There is a left-sided facial droop. Extremities: With multiple congenital abnormalities. LABORATORY DATA: WBC 31.68, hemoglobin is 9.5, platelets count 273. There are 12% of bands on peripheral smear. Chemistry is reviewed. Creatinine is down to 2.1. Pathology report is now out and it is poorly differentiated carcinoma, likely pancreatic primary. ASSESSMENT: 1. Malignant hypercalcemia, resolved. 2. Pancreatic mass with metastasis to the neighboring organs. The pathology report is consistent with poorly differentiated carcinoma, likely pancreatic as primary. 3. Acute kidney injury. Will continue to avoid any nephrotoxins. So far the urine studies are consistent with prerenal. I think patient is just 3rd spacing. We gave him a dose of albumin yesterday and he seems to have improved a little bit. We will give him another dose today. 4. Ascites. Likely due to underlying malignancy. We are pending the cytology report. Patient has continued to be severely distended so he is going for another paracentesis today with IR. 5. Complicated urinary tract infection with left hydronephrosis with stone in the ureterovesical junction. Status post urologic intervention. 6. Leukocytosis with bandemia. This seems to be getting slightly worse. ID has made some changes to the antibiotics. 7. Poor prognosis. PLAN: So today I met with the entire family members including sons, the [id number], the , and multiple other extended family members, who were in the room. I did explain to them the pathology report and also the CT report which are consistent with metastatic disease and the fact that the patient has generalized weakness, ascites, protein calorie malnutrition is all indicative of a poor prognosis. At the end of our lengthy conversation the requested if we can have hospice come and talk to them. I will therefore go ahead and consult hospice for them to evaluate the patient. cc: Lion Serrano MD
--- NOTE | 2016-11-23 17:13 | PROGRESS NOTE ---
DATE: 11/23/2016 PRESENT ILLNESS: The patient has an enterococcal urinary tract infection, which was caused by a ureteral stone causing obstruction. MEDICATIONS: The patient is receiving IV ampicillin. PHYSICAL EXAMINATION: Vital Signs: Temperature is 98.6 degrees, pulse 86, respirations 18, blood pressure is 114/53. General: Generally, this is an ill-appearing, elderly male. He is obtunded. He did not respond to verbal stimuli. Lungs: Clear to auscultation. Cardiovascular: Regular heart rate. Abdomen: Firm and distended. Neurologic: As mentioned above, the patient is obtunded. There was no tremor. LAB AND X-RAY: There is no new x-ray. The creatinine is 2.1. GFR is 31. The ascites showed a white count of 6084. Culture from the ascites is sterile. Fine-needle aspirate of the pancreatic mass shows that it is a carcinoma, most likely of pancreatic origin. ASSESSMENT AND PLAN: For right now, I am going to continue with the ampicillin treatment. The family is altogether and they are going to discuss with the patient if they can arouse im what he wants to do and proceed that way. The patient's also requested that hospice see the patient. COMORBIDITIES: Is he has diabetes mellitus, benign prostatic hypertrophy, renal calculi, gastroesophageal reflux disease, and now unfortunately pancreatic cancer, which has already spread to the patient's liver. cc: Pato Mullins MD MTDD
--- NOTE | 2016-11-23 18:38 | PROGRESS NOTE ---
DATE: 11/23/2016 SUBJECTIVE: Mr. Kathleen is sedated today. He denies pain. OBJECTIVE: Vital Signs: Temperature 98.6 degrees, pulse 88, blood pressure 124/53. General: No acute distress. Abdomen: Nontender, nondistended. Genitourinary: Sinclair catheter in place, draining straw-colored urine. PERTINENT LABORATORY DATA: White cell count of 32,000, creatinine of 2.1, which is down from 2.4. ASSESSMENT AND PLAN: A 71-year-old male with what appears to be metastatic pancreatic cancer, who underwent left ureteroscopy with laser lithotripsy, stone basket extraction, ureteral stent. His kidney function is improved today. I remove the ureteral stent by pulling the string. I have educated family on expectant kidney spasms after the stent pull. PLAN: 1. Keep Sinclair catheter to gravity drainage. 2. Please call with further any questions. At this point, there is no further genitourinary care. cc: Goldy Blackmon MD
[2016-11-23] MEDS: LOVENOX SUBQ SCH (21:43)
[2016-11-23] MEDS: LIPITOR PO SCH (21:43)
[2016-11-23] MEDS: [UNRECOGNIZED DRUG - OTHER] LEFT EYE SCH (21:43)
[2016-11-24] MEDS: TOBRADEX OPH SUSP LEFT EYE SCH ×4 (02:18→22:15)
[2016-11-24] MEDS: AMPICILLIN 2 GM/NS 2 GM/100 ML IVPB IV SCH ×2 (02:18→09:24)
[2016-11-24] MEDS: NS 1,000 ML IV SCH ×2 (02:20→22:18)
[2016-11-24] MEDS: CARAFATE LIQUID PO SCH ×3 (06:25→22:11)
[2016-11-24 06:35] LABS: BASO% 0.3 % (0.0-0.8); EOS# 0.02 X1000 (0.0-0.7); HEMATOCRIT 33.4 % (42.0-52.0); HEMOGLOBIN 10.6 g/dL (14.0-18.0); IMM GRAN# 0.44 X1000 (0.0-0.04); LYMPH# 1.17 X1000 (1.2-3.4); LYMPH% 2.5 % (20.5-51.1); MANUAL DIFF NEEDED? YES; MCH 27.3 PG (27-31); MCHC 31.7 g/dL (33-37); MCV 86.1 FL (81-99); MONO# 1.37 X1000 (0.11-0.59); MPV 11.4 FL (7.4-10.4); NEUT% 93.2 % (42.2-75.2); PLT 341 X1000 (130-400); RBC 3.88 XMIL (4.7-6.1)
[2016-11-24 06:57] LABS: ALBUMIN 2.2 g/dL (3.5-5.0); CALCIUM 10.3 mg/dL (8.8-10.2); MAGNESIUM 2.9 mg/dL (1.5-2.7); POTASSIUM 4.8 mmol/L (3.5-5.1); TOTAL BILIRUBIN 0.36 mg/dL (0.20-1.00); TOTAL PROTEIN 5.4 g/dL (6.3-8.3)
[2016-11-24 07:09] LABS: BANDS 4 % (0-1); LYMPHS 2 % (21-51); MONO 2 % (1-9)
[2016-11-24 07:12] LABS: HYPOCHROM 2+
[2016-11-24] MEDS: PRILOSEC PO SCH ×2 (09:24→22:00)
[2016-11-24] MEDS: ICAR-C PO SCH ×2 (09:24→22:00)
[2016-11-24] MEDS: MORPHINE IV PRN ×3 (09:25→22:38)
[2016-11-24] MEDS: MAG-OX PO SCH (09:25)
[2016-11-24] MEDS: FLOMAX PO SCH ×2 (09:25→22:00)
[2016-11-24] MEDS: LYRICA PO SCH ×2 (09:25→22:00)
[2016-11-24] MEDS: SYMBICORT 160/4.5 MICROGM INHALER INH SCH (10:55)
[2016-11-24] MEDS: DUONEB (A & A) INH PRN ×2 (10:55→15:25)
--- NOTE | 2016-11-24 14:47 | PROGRESS NOTE ---
DATE: 11/24/2016 DATE AND TIME SEEN: 11/24/2016 at 0800 hours. SUBJECTIVE: Mr. Riggins is resting quietly in bed. Head of the bed is elevated. He drifts off to sleep during assessment. MOST RECENT VITAL SIGNS: Temperature 97.7 degrees, blood pressure 102/49, heart rate 98, respirations are 20. He remains on 4 L nasal cannula. Last recorded saturation is 91%. He has had 1140 in; 350 mL out per Sinclair catheter. LABORATORY DATA: This a.m. sodium 135, potassium 4.8, chloride 102, CO2 19. BUN 63, creatinine 2, glucose 193. His anion gap is 14, calcium 10.3, phosphorus 4.6, magnesium 2.9, albumin 2.2. White count 46.12, hemoglobin 10.6, hematocrit 33.4, with a platelet count of 341,000. Urine electrolytes indicate a fractionated FENa score of 0.12%. IMAGING DATA: Patient had a renal ultrasound that was completed on 11/22/2016: Scattered renal cysts. Moderate ascites. No hydronephrosis. No stone. OBJECTIVE: General: On physical exam, this is a 71-year-old white male. He is currently sitting up in bed. He is drifting off to sleep, unable to stay focused, lethargic. Skin: Warm and dry. No acute distress. HEENT: Left eye is closed. He has a left facial droop. Oropharynx is moist. Neck: Supple. Trachea midline. No JVD evident. Cardiovascular: Regular rate and rhythm. Soft murmur noted. Lungs: Clear to auscultation anterior. Equal excursion on O2. Abdomen: Distended, round, hypo bowel sounds, nontender. Extremities: Have trace pretibial edema. No clubbing or cyanosis. Neurological: As mentioned above. ASSESSMENT AND PLAN: 1. Acute kidney injury. Again, this remains multifactorial. Patient continues with adequate urine out. His FENa score indicates that he is prerenal and dry. Patient continues on normal saline at 75 mL an hour. He does continue on Lyrica for discomfort and neuropathy. We will continue to monitor. No further changes to his medications. 2. Electrolytes and acid-base balance. These are fairly stable. 3. Anemia. This remains stable, if not slightly improved over the last several days. 4. Altered mental status. This continues to be monitored and followed by primary care team. I would like to thank you for allowing us to follow with this patient. Seen, data reviewed, discussed with Zia Sams on 11/24/16. I agree with the above assessment and plan of care. rg Dictated by RACHEL Quinones for Juancarlos Moreno MD cc: RACHEL Quinones MD Adnan A. Seljuki, MD [facility]
[2016-11-24 17:42] LABS: UR CREAT RANDOM 215.9 mg/dL (14-26); UR SODIUM < 10 mmoll
[2016-11-24] MEDS: PATIENT'S OWN MED PO SCH (18:06)
--- NOTE | 2016-11-24 20:54 | DISCHARGE SUMMARY ---
ADMISSION DATE: 11/15/2016 DISCHARGE DATE: 11/25/2016 DISCHARGE DIAGNOSES: 1. Metastatic pancreatic cancer. 2. Severe ascites that is malignant secondary to pancreatic cancer. 3. Malignant hypercalcemia. 4. Urinary tract infection with acute kidney injury secondary to left ureter calculi. 5. History of diabetes. 6. History of hypertension. HOSPITAL COURSE: Mr. Kathleen is a very pleasant, 71-year-old gentleman who was brought in with the complaint of having generalized weakness and cough. The patient has been a poor historian and he was found to have a white blood cell count of 22,000 as well. He was therefore admitted for IV antibiotic therapy. During his hospital course he was unfortunately found to have a calcium level of 13.2 and, therefore, further investigations were performed. He was found to have metastatic pancreatic cancer that was confirmed with biopsy and was initially seen on CT scan as a pancreatic mass. He did have ascitic fluid removed but that has reaccumulated and his condition has not improved at all. This morning his white blood cell count has gone up to 46,000 and although he has been getting IV antibiotics he has not been getting any better. He did have a urological procedure by Dr. Blackmon and left ureter calculi were removed but his renal function has remained unchanged. His calcium levels have improved however. The patient's condition is terminal and the family understands that situation and, therefore, they have decided to take him home on hospice. Because of patient's terminal condition we have decided to provide him only comfort care. This will be provided through hospice at his house. DISCHARGE MEDICATIONS: 1. Lyrica 50 mg orally twice daily. 2. Omeprazole 40 mg orally twice daily. 3. Multivitamin orally once daily. 4. Symbicort inhaler 160/4.5, 2 puffs twice daily. 5. Fentanyl 50 mcg/hr patch to applied to upper chest wall every 72 hours as directed. 6. [place] 10 mg every 6 hours as needed for breakthrough pain. FOLLOWUP: Followup care will be provided as per [facility]. TIME SPENT: A total of more than 40 minutes were spent during the discharge process. cc: Mejia Rey MD MTDD
[2016-11-24] MEDS: LIPITOR PO SCH (22:00)
[2016-11-24] MEDS: [UNRECOGNIZED DRUG - OTHER] LEFT EYE SCH (22:00)
[2016-11-24] MEDS: LOVENOX SUBQ SCH (22:00)
[2016-11-25] MEDS: TOBRADEX OPH SUSP LEFT EYE SCH (03:51)
[2016-11-25] MEDS: CARAFATE LIQUID PO SCH (05:36)
[2016-11-25] MEDS: MORPHINE IV PRN ×2 (06:44→10:37)
[2016-11-25 08:12] VITALS: BP 100/50
[2016-11-25 08:52] LABS: HEMATOCRIT 31.9 % (42.0-52.0); HEMOGLOBIN 10.1 g/dL (14.0-18.0); MCH 27.2 PG (27-31); MCHC 31.7 g/dL (33-37); MCV 85.8 FL (81-99); MPV 10.8 FL (7.4-10.4); RBC 3.72 XMIL (4.7-6.1)
[2016-11-25 09:09] LABS: ALBUMIN 2.2 g/dL (3.5-5.0); CALCIUM 9.9 mg/dL (8.8-10.2); POTASSIUM 5.7 mmol/L (3.5-5.1)
== END 2016-11-25 13:33 | disposition hospice, home (50) ==
LOC: ED 15:32 → SUATTDRO 18:55 → 3N 18:55
PROVIDERS: ADMIT Internal Medicine; ATTEND Internal Medicine